=== PATIENT | female | born 1990 | race Caucasian/White ===

== ENCOUNTER 2020-01-23 16:24 | Inpatient (IN) ==
[2020-01-23] MEDS ORDERED: ONDANSETRON INJ 2 MG/ML 2 ML VIAL IV STA (18:03)
--- NOTE | 2020-01-23 18:08 | Emergency Department Note ---
Impression & Plan Weakness, Anemia, Tachycardia, Thrombocytopenia, Acute leukemia ED Provider Note NAME: GLORY ARIAS AGE: 29 SEX: F : 1990 ARRIVES VIA: Walk-In INFORMANT: [Patient] ED PROVIDER(S): [Jack Willard MD] CHIEF COMPLAINT: Dizziness HISTORY OF PRESENT ILLNESS: The patient is a 29-year-old female who has not felt well for 3 days. She is dizzy, short of breath, tired, fatigued, thirsty. She has had some body aches especially on her right arm and right leg. She has felt hot and then cold. She has had some chills and she believes a fever. She fell asleep today at work and they referred her to the ED for an evaluation. The patient admits to nausea but no vomiting. She has had diarrhea though for 3 days. No abdominal pain. No known sick contacts, no known coronavirus exposures. She has never felt this way in the past. The patient was recently on prednisone for a mouth ulcer, she is off this medication now, she has been off it for about a week. REVIEW OF SYSTEMS: See HPI for pertinent positives and negatives. A total of ten systems were reviewed and were otherwise negative. PMHx/PSHx: See Below SOCIAL HISTORY: See Below. PHYSICAL EXAM: GENERAL: Patient is in no acute distress. HEENT: No acute trauma, normocephalic atraumatic, mucous membranes moist, no nasal congestion, no scleral icterus. No nystagmus NECK: No stridor, no adenopathy, no meningismus, trachea is midline. LUNGS: Clear to auscultation bilaterally, no wheeze, no rhonchi, breath sounds equal. HEART: Tachycardic, regular rhythm, no murmurs. ABDOMEN: Soft, nontender, bowel sounds positive, no hernias, no peritonitis. EXTREMITIES: No cyanosis or edema, full range of motion of all the joints without pain or difficulty, no signs for acute trauma. NEUROLOGIC: Oriented x 3, no acute motor or sensory deficits, no focal weakness. No speech slur, no cerebellar deficit, no extremity drift. SKIN: No rash, no jaundice, no diaphoresis. Rectal: Brown stool, heme positive. DIFFERENTIAL DIAGNOSIS: Infection, dehydration, metabolic abnormality, stroke, hypo/hyperglycemia, UTI, electrolyte disturbance, anemia, hypoxia, cardiac sources, intracerebral event, toxicologic, neurologic, as well as other pathologies. EMERGENCY DEPARTMENT COURSE/PROCEDURES: ECG: Indication was tachycardia. The EKG shows a sinus tachycardia with a rate of 109. There is some nonspecific ST change. No ST elevation, no PVCs. The QTc is 428. Continuous Cardiac Monitoring: An order was placed for continuous cardiac monitoring. The monitor shows a rate of 96 with normal sinus rhythm. Critical Care Note: I have personally spent greater than 55 minutes of critical care time in the direct management of this patient. This includes bedside care, interpretation of diagnostic studies, and testing, discussion with consultants, patient, and family members, and other required patient management activities. This 55 minutes is in excess of all separately billable procedures. MEDICAL DECISION MAKING: There is no leukocytosis. The patient's white blood cell count differential though did show blasts. This finding was consistent with acute leukemia. She had a low hemoglobin at 6. Platelet count was low at 55. There was a very mild coagulopathy with an INR of 1.2. No renal failure or significant electrolyte abnormality. No worrisome liver enzyme elevation. The TSH was slightly high however, the T4 was normal. testing was negative. Blood type was A+. Chest film did not show pneumonia or CHF. Rectal exam was performed, the stool was brown but scantly heme positive. The patient received IV saline for hydration. She was ordered for IV Zofran for nausea. I talked to the patient about her CBC values. She did consent to a blood transfusion. The appropriate paperwork was completed and signed. 2 units of blood were ordered, 1 unit was given while here in the ED. Patient was given oral Tylenol and IV Benadryl as potential pretreatment for her blood transfusion. Of note, she did develop a low-grade fever while here in the ED. I spoke to oncology here at [facility], they recommended transfer to a tertiary center. I spoke with [facility] in [place]. They did accept the patient to their facility however, they were no beds available. There should be a bed available for transfer tomorrow. I spoke with our on-call hospitalist. The patient will be brought into our hospital tonight and then transferred to [facility] tomorrow. I did talk to the patient about all her findings. She understands the seriousness of her presentation. The patient seems to be making improvement with the saline, packed red blood cells and other medications. She is resting comfortably. Past Med/Surg History Medical History No pertinent past medical history Social History Preferred Language: Wallisian Communication Ability: Effective Health Assessment And Treatment Teacher Required: No Beliefs That Will Affect Care: None Current Living Situation: Spouse Other Information That Helps Us Care for You: No Feels Safe at Home: Yes Safety Concerns: Feels Safe At This Time Smoking Status: Never smoker Do You Dip or Chew Tobacco: No ; Second Hand Exposure: No ; Tobacco Cessation Education Requested by Patient: No Hx Alcohol Use: No Hx Substance Use: No Allergies Allergies Allergy/AdvReac Type Severity Reaction Status Date / Time No Known Allergies Allergy Verified 01/23/20 18:08 Home Meds Home Medications Medication Instructions Recorded Confirmed ibuprofen 200 - 400 mg PO DAILY PRN 07/01/18 01/23/20 Previous Rx's Medication Instructions Recorded famotidine [Pepcid] 40 mg PO BID #30 tab 01/03/20 Results & Data (ED) Vital Signs Vital Signs - 24 hr 01/23/20 16:25 01/23/20 18:17 01/23/20 18:19 Temperature 37.3 C Temperature Source Oral Pulse Rate - Lying 107 H Pulse Rate - Sitting 117 H Pulse Rate - Standing 119 H Pulse Rate 136 H 108 H Pulse Rate [Apical] Pulse Rate from SpO2 Sensor 111 H Respiratory Rate 18 17 Blood Pressure - Lying 148/75 H Blood Pressure - Sitting 126/72 Blood Pressure- Standing 129/76 Blood Pressure 155/77 H 129/76 Blood Pressure [Right Arm] Blood Pressure Mean 103 103 Blood Pressure Mean [Right Arm] Pulse Oximetry 100 97 Oxygen Delivery Method Room Air Sepsis Recent Fever Within 48 Hours No Sepsis New/Unexplained Change in Mental Status No Sepsis Action Taken by Nursing No Action Required 01/23/20 19:16 01/23/20 20:12 01/23/20 20:47 Temperature 37.9 C H Temperature Source Oral Pulse Rate - Lying Pulse Rate - Sitting Pulse Rate - Standing Pulse Rate 110 H Pulse Rate [Apical] 120 H 108 H Pulse Rate from SpO2 Sensor Respiratory Rate 19 20 21 Blood Pressure - Lying Blood Pressure - Sitting Blood Pressure- Standing Blood Pressure 164/74 H Blood Pressure [Right Arm] 147/76 H 155/74 H Blood Pressure Mean 104 Blood Pressure Mean [Right Arm] 99 101 Pulse Oximetry 96 97 95 Oxygen Delivery Method Room Air Room Air Sepsis Recent Fever Within 48 Hours Sepsis New/Unexplained Change in Mental Status Sepsis Action Taken by Nursing 01/23/20 21:15 01/23/20 21:30 Temperature 38.1 C H 38.3 C H Temperature Source Oral Oral Pulse Rate - Lying Pulse Rate - Sitting Pulse Rate - Standing Pulse Rate 107 H 103 H Pulse Rate [Apical] Pulse Rate from SpO2 Sensor Respiratory Rate 21 18 Blood Pressure - Lying Blood Pressure - Sitting Blood Pressure- Standing Blood Pressure 150/89 H 156/85 H Blood Pressure [Right Arm] Blood Pressure Mean 109 108 Blood Pressure Mean [Right Arm] Pulse Oximetry 94 96 Oxygen Delivery Method Sepsis Recent Fever Within 48 Hours Sepsis New/Unexplained Change in Mental Status Sepsis Action Taken by Long Term Medications Current Medication List: was personally reviewed by me Laboratory Data Attestation: I reviewed the patient's lab results. Result diagrams: 01/23/20 18:27 01/23/20 18:27 Lab Results 01/23/20 01/23/20 01/23/20 Range/Units 18:27 18:27 18:27 WBC 8.27 (4.8-10.8) K/uL RBC 2.15 L (4.2-5.4) M/uL Hgb 6.0 L* (12.0-16.0) g/dL Hct 17.8 L* (37-47) % MCV 82.8 (80-100) fL MCH 27.9 (25-34) pg MCHC 33.7 (32-36) g/dL RDW Std Deviation 52.5 H (36.4-46.3) fL RDW Coeff of Brock 19.3 H (11.5-14.5) % Plt Count 55 L (130-400) K/uL MPV 8.6 (7.4-10.4) fL Absolute Nucleated RBC 0.06 H (0-0) K/uL Nucleated RBC % (auto) 0.7 % Lymphocytes % (Manual) 46.5 % Monocytes % (Manual) 0.9 % Basophils % (Manual) 0.9 % Metamyelocytes % (Man) 0.9 % Blast Cells % (Manual) 33.3 % Neutrophils # (Manual) 1.45 (1.4-6.5) K/uL Total Absolute Neuts 1.45 (1.4-6.5) K/uL Lymphocytes # (Manual) 3.85 H (1.2-3.4) K/uL Total Abs Lymphocytes 3.85 H (1.2-3.4) K/uL Monocytes # (Manual) 0.07 L (0.11-0.59) K/uL Basophils # (Manual) 0.07 (0-0.2) K/uL Metamyelocytes # (Man) 0.07 H (0-0) K/uL Blast Cells # (Man) 2.75 H (0-0) K/uL Blood Smear Review Platelet Estimate Decreased L (Normal) RBC Morphology Unremarkable PT (9.0-12.0) Seconds INR (0.9-1.1) APTT (21.0-31.0) Seconds PTT Ratio Sodium 137 (136-145) mmol/L Potassium 4.0 (3.5-5.1) mmol/L Chloride 103 (98-107) mmol/L Carbon Dioxide 27 (21-32) mmol/L Anion Gap 7.0 (3-11) BUN 9 (7-18) mg/dl Creatinine 0.89 (0.6-1.2) mg/dl Est Cr Clr Drug Dosing 122.6 ml/min Est GFR ( Amer) 102.2 Est GFR (Non-Af Amer) 88.2 BUN/Creatinine Ratio 10.2 (10-20) Glucose 109 H (70-99) mg/dl Calcium 9.7 (8.5-10.1) mg/dl Magnesium 1.9 (1.8-2.4) mg/dl Total Bilirubin 1.2 H (0.2-1) mg/dl AST 24 (15-37) U/L ALT 19 (12-78) U/L Alkaline Phosphatase 54 (45-117) U/L Troponin I < 0.015 (0-0.045) ng/ml Total Protein 8.2 (6.4-8.2) gm/dl Albumin 3.4 (3.4-5.0) gm/dl Globulin 4.8 H (2.5-4.0) gm/dl Albumin/Globulin Ratio 0.7 L (0.9-2) TSH 7.400 H (0.300-4.500) uIu/ml Free T4 1.12 (0.8-1.6) ng/dl HCG, Qual Negative (Negative) Blood Type Blood Type Recheck Antibody Screen Crossmatch 01/23/20 01/23/20 01/23/20 Range/Units 19:07 19:22 19:45 WBC (4.8-10.8) K/uL RBC (4.2-5.4) M/uL Hgb (12.0-16.0) g/dL Hct (37-47) % MCV (80-100) fL MCH (25-34) pg MCHC (32-36) g/dL RDW Std Deviation (36.4-46.3) fL RDW Coeff of Brock (11.5-14.5) % Plt Count (130-400) K/uL MPV (7.4-10.4) fL Absolute Nucleated RBC (0-0) K/uL Nucleated RBC % (auto) % Lymphocytes % (Manual) % Monocytes % (Manual) % Basophils % (Manual) % Metamyelocytes % (Man) % Blast Cells % (Manual) % Neutrophils # (Manual) (1.4-6.5) K/uL Total Absolute Neuts (1.4-6.5) K/uL Lymphocytes # (Manual) (1.2-3.4) K/uL Total Abs Lymphocytes (1.2-3.4) K/uL Monocytes # (Manual) (0.11-0.59) K/uL Basophils # (Manual) (0-0.2) K/uL Metamyelocytes # (Man) (0-0) K/uL Blast Cells # (Man) (0-0) K/uL Blood Smear Review Platelet Estimate (Normal) RBC Morphology PT 13.0 H (9.0-12.0) Seconds INR 1.2 H (0.9-1.1) APTT 23.5 (21.0-31.0) Seconds PTT Ratio 0.8 Sodium (136-145) mmol/L Potassium (3.5-5.1) mmol/L Chloride (98-107) mmol/L Carbon Dioxide (21-32) mmol/L Anion Gap (3-11) BUN (7-18) mg/dl Creatinine (0.6-1.2) mg/dl Est Cr Clr Drug Dosing ml/min Est GFR ( Amer) Est GFR (Non-Af Amer) BUN/Creatinine Ratio (10-20) Glucose (70-99) mg/dl Calcium (8.5-10.1) mg/dl Magnesium (1.8-2.4) mg/dl Total Bilirubin (0.2-1) mg/dl AST (15-37) U/L ALT (12-78) U/L Alkaline Phosphatase (45-117) U/L Troponin I (0-0.045) ng/ml Total Protein (6.4-8.2) gm/dl Albumin (3.4-5.0) gm/dl Globulin (2.5-4.0) gm/dl Albumin/Globulin Ratio (0.9-2) TSH (0.300-4.500) uIu/ml Free T4 (0.8-1.6) ng/dl HCG, Qual (Negative) Blood Type A Positive Blood Type Recheck A Positive Antibody Screen NEGATIVE Crossmatch See Detail Administered Medications Piperacillin Sod/Tazobactam Sod (Zosyn) 4.5 gm in 120 mls @ 28.75 mls/hr IV ONE STA; Protocol Stop: 01/24/20 01:50 Last Admin: 01/23/20 23:45 Dose: 28.8 mls/hr Documented by: [id number] Discontinued Medications Acetaminophen (Tylenol) 1,000 mg PO NOW STA Stop: 01/23/20 20:54 Last Admin: 01/23/20 21:04 Dose: 1,000 mg Documented by: [id number] Diphenhydramine HCl (Benadryl) 25 mg IV NOW STA Stop: 01/23/20 20:54 Last Admin: 01/23/20 21:04 Dose: 25 mg Documented by: [id number] Sodium Chloride (Nss 1000ml) 1,000 mls @ 999 mls/hr IV .Q1H1M ELANA Stop: 01/23/20 19:15 Last Infusion: 01/23/20 19:40 Dose: 0 mls/hr Documented by: [id number] Admin: 01/23/20 18:33 Dose: 999 mls/hr Documented by: [id number] Vancomycin HCl 2,750 mg/ (Sodium Chloride) 555 mls @ 200 mls/hr IV NOW STA Stop: 01/24/20 00:25 Last Infusion: 01/24/20 00:50 Dose: 200 mls/hr Documented by: [id number] Admin: 01/23/20 22:03 Dose: 200 mls/hr Documented by: [id number] Ondansetron HCl (Zofran) 4 mg IV NOW STA Stop: 01/23/20 18:04 Last Admin: 01/23/20 18:33 Dose: 4 mg Documented by: [id number] Imaging Data Radiologist's Impression: XR chest 1V portable HISTORY: 29 years-old Female weakness acute weakness with shortness of breath COMPARISON: Lumbar spine radiographs 07/01/2018 TECHNIQUE: Portable AP view of the chest FINDINGS: Cardiomediastinal and hilar silhouettes are within normal limits. There is no pneumothorax, pleural effusion, airspace consolidation or overt pulmonary edema. Bones of the chest appear grossly intact. IMPRESSION: No acute process. Blood Pressure Blood Pressure Findings: Elevated blood pressure Blood Pressure Disposition: further management by hospitalist Discharge Plan Visit Data *Final* Discharge Date/Time: 01/23/20 22:12 Chief Complaint: Dizziness Stated Complaint: DIZZY - FATIGUE - SOB - CONFUSION ED Provider: Jack Willard Discharge Problem: Weakness, Anemia, Tachycardia, Thrombocytopenia, Acute leukemia Patient Disposition: Admitted As Inpatient Discharge Instructions Interventions: ED Discharge Assessment Last Done: 01/23/20 22:12
[2020-01-23] MEDS ORDERED: SODIUM CHLORIDE 0.9% 1000ML 1,000 ML IV SCH (18:15)
--- NOTE | 2020-01-23 18:50 | XRay Report ---
XR chest 1V portable HISTORY: 29 years-old Female weakness acute weakness with shortness of breath COMPARISON: Lumbar spine radiographs 07/01/2018 TECHNIQUE: Portable AP view of the chest FINDINGS: Cardiomediastinal and hilar silhouettes are within normal limits. There is no pneumothorax, pleural e ffusion, airspace consolidation or overt pulmonary edema. Bones of the chest appear grossly intact. IMPRESSION: No acute process. ACT 112: Negative or not required by law. The above report was generated using voice recognition software. It may contain grammatical, syntax o r spelling errors. Electronically signed by: Ricardo Menezes M.D. 01/23/2020 6:48 PM
[2020-01-23 18:51] LABS: Pregnancy Test, Serum Negative (Negative)
[2020-01-23 18:53] LABS: Alanine Aminotransferase 19 U/L (12-78); Albumin Level 3.4 gm/dl (3.4-5.0); Aspartate Aminotransferase 24 U/L (15-37); BUN Creatinine Ratio 10.2 (10-20); Blood Urea Nitrogen 9 mg/dl (7-18); Calcium 9.7 mg/dl (8.5-10.1); Carbon Dioxide 27 mmol/L (21-32); Chloride 103 mmol/L (98-107); Creatinine Clr Calc Pharmacy 122.6 ml/min; Est GFR (African American) 102.2; Est GFR (Non-African American) 88.2; Glucose 109 mg/dl (70-99); Magnesium 1.9 mg/dl (1.8-2.4); Sodium 137 mmol/L (136-145)
[2020-01-23 18:56] LABS: Hematocrit (blood only) 17.8 % (37-47); Mean Corpuscular Hemoglobin 27.9 pg (25-34); Mean Corpuscular Hgb Conc 33.7 g/dL (32-36); Mean Corpuscular Volume 82.8 fL (80-100); Mean Platelet Volume 8.6 fL (7.4-10.4); Nucleated RBC # (auto) 0.06 K/uL (0-0); Nucleated RBC % (auto) 0.7 %; Platelet Count 55 K/uL (130-400); RDW Coefficient of Variation 19.3 % (11.5-14.5); RDW Standard Deviation 52.5 fL (36.4-46.3); Red Blood Count 2.15 M/uL (4.2-5.4); White Blood Count 8.27 K/uL (4.8-10.8)
[2020-01-23] MEDS ORDERED: SODIUM CHLORIDE 0.9% 250 ML IV PRN ×2 (18:56→19:18)
[2020-01-23 19:03] LABS: Albumin Globulin Ratio 0.7 (0.9-2); Alkaline Phosphatase 54 U/L (45-117); Bilirubin,Total 1.2 mg/dl (0.2-1); Globulin 4.8 gm/dl (2.5-4.0); Total Protein 8.2 gm/dl (6.4-8.2); Troponin I < 0.015 ng/ml (0-0.045)
[2020-01-23 19:15] LABS: T4 Free Thyroxine 1.12 ng/dl (0.8-1.6)
[2020-01-23 19:31] LABS: Platelet Estimate Decreased (Normal); RBC Morphology Unremarkable
[2020-01-23 19:38] LABS: ALC (manual) 3.85 K/uL (1.2-3.4); ANC (manual) 1.45 K/uL (1.4-6.5); Basophils # (manual) 0.07 K/uL (0-0.2); Basophils % (manual) 0.9 %; Blast # (manual) 2.75 K/uL (0-0); Blast Cells % (manual) 33.3 %; Lymphocytes # (manual) 3.85 K/uL (1.2-3.4); Lymphocytes % (manual) 46.5 %; Metamyelocytes # (manual) 0.07 K/uL (0-0); Metamyelocytes % (manual) 0.9 %; Monocytes # (manual) 0.07 K/uL (0.11-0.59); Monocytes % (manual) 0.9 %; Neutrophils # (manual) 1.45 K/uL (1.4-6.5)
[2020-01-23 20:06] LABS: INR 1.2 (0.9-1.1); Partial Thromboplastin Ratio 0.8; Partial Thromboplastin Time 23.5 Seconds (21.0-31.0)
[2020-01-23] MEDS ORDERED: ACETAMINOPHEN 500 MG TAB PO STA (20:53)
[2020-01-23] MEDS ORDERED: DiphenhydrAMINE HCL 50 MG/ML VIAL IV STA (20:53)
[2020-01-23] MEDS ORDERED: VANCOMYCIN CONSULT ACTIVE PRN (21:23)
[2020-01-23] MEDS ORDERED: PIPERACILL/TAZOBAC CONSULT ACTIVE PRN (21:28)
[2020-01-23] MEDS ORDERED: VANCOMYCIN HCL 2,750 MG in SODIUM CHLORIDE 0.9% 500 ML IV STA (21:39)
[2020-01-23] MEDS ORDERED: PIPERACILLIN/TAZOBACTAM 4.5 GM/120 ML BAG IV STA (21:40)
[2020-01-23] MEDS ORDERED: ONDANSETRON INJ 2 MG/ML 2 ML VIAL IV PRN (22:53)
[2020-01-23] MEDS ORDERED: ACETAMINOPHEN 325 MG TAB PO PRN (22:53)
[2020-01-23] MEDS ORDERED: POLYETHYLENE (MIRALAX) 17 GM PACK PO PRN (22:53)
--- NOTE | 2020-01-23 23:05 | History & Physical Report ---
Date of Service January 23, 2020 Assessment & Plan (1) Bone marrow depression: Kirstin Arias is a previously healthy 29 year old woman who presents with a week history of progressive fatigue, weakness, dyspnea on exertion who presents with increased lymphocytic blasts, anemia and thrombocytopenia Bone Marrow Suppression with Increased Blasts White count 8.27, hemoglobin of 6, Platelet count 55, increased lymphocytes increased metamyelocytes 33% blast cells 2.75 k/microliter Peripheral smear without Lena rods or signs of AML Will need cytometric analysis and bone marrow biopsy for diagnosis Plan is for transfer to [facility], but they are not able to take her tonight, we will watch her here overnight and plan on transfer in AM when they are anticipated to have a bed open up. Oncology consulted and on board with plan Anemia Hemoglobin 6 on presentation transfused two units in ED will recheck Hgb tonight and replete as necessary Likely source of her fatigue, dyspnea with exertion, and syncopal episode Fever Patient with borderline low neutrophils but in setting of possible acute leukemia existing neutrophils may be ineffective Very possible this fever and symptoms are just secondary to acute leukemic process but we will treat for infectious causes as precaution. Will cover with vancomycin and zosyn No clear source blood cultures drawn x2 Urine pending No sign of pna Vitals WNL, ECG negative, cxr negative Will admit to PCU for close monitoring, given her likely compromised immune system there is potential for acute worsening Thrombocytopenia Patient with decreased platelets possibly secondary to malignant process Patient with spontaneous bruising over last couple of weeks INR 1.2 aPTT normal No signs of acute bleeding but will continue to monitor No indication for platelet transfusion at this time. DVT PPx: SCD's F/E/N: Regular diet Dispo: PCU on broad spectrum antibiotics awaiting transfer to tertiary care center tomorrow am Full Code (2) Anemia: (3) Neutropenia: (4) Neutropenic fever: History of Present Illness Chief Complaint: Fatigue, passing out, dizziness. Primary Care Provider: PT DECLINED Kirstin Arias is a 29 year old previously healthy woman with a several day period of worsening fatigue, weakness and an episode of "passing out". 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 This continued into Tuesday and she had one episode where she became so weak she passed out. Does not sound like she fully lost consciousness but became lightheaded. She has continued to have these issues at work and she has had to stop walking as much and adjust her work duties. She has had some episodes of hot and cold flashes that she calls chills and occasionally gets sweats. She attributed the fatigue, shortness of breath, and temperature swings and sweats to having to wear a mask but now it is present even when not at work. She has also noticed that she has had some bruising spring up spontaneously on her body in areas that she doesn't recall bumping. She denies any rectal bleeding, no dark stools, no increased menstruation. She has had a decreased appetite and some diarrhea, no nausea or vomiting. She has no major personal past medical history, no family history of any malignancies that she is aware of. 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 Beliefs That Will Affect Care: None Current Living Situation: Spouse Feels Safe at Home: Yes Smoking Status: Never smoker Second Hand Exposure: No ; Hx Alcohol Use: No Hx Substance Use: No Review of Systems Constitutional: + fever (subjective), + chills, + sweats, + body aches, + fatigue, + malaise, + weakness, + anorexia and + weight loss Eyes: no problem reported Ear, Nose, Mouth, Throat: no neck lump and no problem reported Respiratory: no cough, no dyspnea and no wheezing Cardiovascular: + dyspnea on exertion, + palpitations and + lightheadedness; no chest pain Gastrointestinal: no abdominal pain, no nausea, no vomiting, no constipation and no diarrhea/loose stools Genitourinary: no dysuria, no urinary frequency, no dysmenorrhea and no abnormal vaginal bleeding Neurologic: no falls, no localized weakness, no numbness and no tremor(s) Hematologic / Lymphatic: + easy bruising and + night sweats; no lymphadenopathy Physical Exam Physical Exam: Constitutional: Well appearing 29 year old woman appearing stated age in no apparent distress. Conversing comfortably in bed. Eyes: Anicteric sclerae, EOMMI bilaterally, PERRLA Neck: No lymph nodes palpated Respiratory: No increased respiratory effort, lung sounds vesicular in all lung solorzano. Cardiovascular: Heart sounds dual regular rate, regular rhythm, no murmurs rubs skips or gallops. no peripheral edema, GI: Abdomen soft, mild tenderness to spleen, splenomegaly appreciated though difficult to assess borders given patient's body habitus Neurologic: No focal abnormalities appreciated Psychiatric: Anxious affect, no other issues. Lymphatic: Lymphatic: no cervical or axillary lymphadenopathy Results & Data Results & Data ([facility]) Vital Signs (Past 12 Hours) Vital Signs Temp Pulse Pulse Resp BP BP Pulse Ox 01/23/20 22:00 37.7 C H 103 H 18 137/60 95 01/23/20 21:30 38.3 C H 103 H 18 156/85 H 96 01/23/20 21:15 38.1 C H 107 H 21 150/89 H 94 01/23/20 20:47 37.9 C H 110 H 21 164/74 H 95 01/23/20 20:12 108 H 20 155/74 H 97 01/23/20 19:16 120 H 19 147/76 H 96 01/23/20 18:19 108 H 17 129/76 97 01/23/20 16:25 37.3 C 136 H 18 155/77 H 100 Code Status & VTE Plan VTE Prophylaxis Plan VTE Prophylaxis will be ordered: Yes Supervising Physician Co-Signing Physician Notes Attending addendum: I have physically seen this patient, have supervised the medical residents activities, and agree with the H&P unless as otherwise noted. Assessment and Plan: Acute leukemia/anemia and thrombocytopenia/febrile illness- Admit to monitored bed. Give 2 units PRBCs this evening, and repeat labs in the a.m. No signs of bleeding. Pantoprazole 40 mg IV daily Vancomycin IV and Zosyn IV. Follow urine and blood cultures. Tertiary care center will return with bed availability to be transferred in the a.m. tomorrow. Fever may just be related to the leukemia, or may be due to secondary underlying infection. Patient to be seen by Dr. Holliday, hematology oncology while here. If patient decompensates overnight, she will be transferred through emergency department at tertiary care facility. Remaining orders and notations as noted. Resident Activity Tracking Resident Involvement: Resident Care Provided Care Provided: Adult Hospital Medicine
[2020-01-24 02:58] LABS: Appearance Urine Cloudy (Clear); Bacteria Urine Automated Negative (Negative); Bilirubin Urine Negative (Negative); Blood Urine 3+ (Negative); Color Urine Yellow; Epithelial Cell Urine Auto >30 /lpf (0-5); Glucose Urine UA Negative (Negative); Ketones Urine Negative (Negative); Leukocyte Esterase Urine Negative (Negative); Nitrite Urine Negative (Negative); Protein Urine Negative (Negative); RBC Urine Automated >30 /hpf (0-4); Specific Gravity Urine 1.023 (1.000-1.030); Urobilinogen Urine Negative (Negative); pH Urine 5.5 (4.5-7.5)
[2020-01-24] MEDS: PIPERACILLIN/TAZOBACTAM 4.5 GM in DEXTROSE 5% 100 ML IV SCH ×2 (03:30→12:37)
[2020-01-24 03:49] LABS: Hematocrit (blood only) 17.8 % (37-47); Hemoglobin 6.1 g/dL (12.0-16.0); Mean Corpuscular Hemoglobin 28.8 pg (25-34); Mean Corpuscular Hgb Conc 34.3 g/dL (32-36); Mean Platelet Volume 7.9 fL (7.4-10.4); Nucleated RBC # (auto) 0.03 K/uL (0-0); Nucleated RBC % (auto) 0.5 %; Platelet Count 48 K/uL (130-400); RDW Coefficient of Variation 18.5 % (11.5-14.5); RDW Standard Deviation 53.2 fL (36.4-46.3); Red Blood Count 2.12 M/uL (4.2-5.4); White Blood Count 6.76 K/uL (4.8-10.8)
[2020-01-24 04:08] LABS: ALC (manual) 3.19 K/uL (1.2-3.4); ANC (manual) 1.47 K/uL (1.4-6.5); Blast Cells % (manual) 31.1 %; Lymphocytes # (manual) 3.19 K/uL (1.2-3.4); Lymphocytes % (manual) 47.2 %; Neutrophils # (manual) 1.47 K/uL (1.4-6.5); Neutrophils % (manual) 21.7 %; RBC Morphology Unremarkable
[2020-01-24] MEDS ORDERED: SODIUM CHLORIDE 0.9% 250 ML IV PRN (04:20)
[2020-01-24 04:30] LABS: Albumin Level 2.7 gm/dl (3.4-5.0); BUN Creatinine Ratio 9.5 (10-20); Calcium 8.7 mg/dl (8.5-10.1); Creatinine Clr Calc Pharmacy 128.7 ml/min; Est GFR (African American) 105.1; Est GFR (Non-African American) 90.7; Potassium 3.6 mmol/L (3.5-5.1)
[2020-01-24 04:34] LABS: Albumin Globulin Ratio 0.7 (0.9-2); Bilirubin,Total 1.2 mg/dl (0.2-1); Globulin 4.1 gm/dl (2.5-4.0); Total Protein 6.8 gm/dl (6.4-8.2)
[2020-01-24] MEDS ORDERED: VANCOMYCIN HCL 1,250 MG in SODIUM CHLORIDE 0.9% 250 ML IV SCH (08:00)
[2020-01-24] MEDS ORDERED: FAMOTIDINE 40 MG TABLET PO SCH (09:00)
--- NOTE | 2020-01-24 09:13 | Consultation Report ---
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 HISTORY OF PRESENT ILLNESS: Kirstin Arias is a pleasant 29-year-old previously healthy woman with several days onset asthenia, dizziness, and lightheadedness. She actually presented with low grade fever in the Emergency Room as well. She was shopping at [employer] over the weekend and noticed her exercise tolerance declined significantly. The symptoms continued into Tuesday and had a near syncopal episode that day. She noticed in a general sense during work she had to take several breaks from her work duties. She finally decided to come to the Emergency Room and underwent a battery of laboratory tests including peripheral blood counts initially revealing WBC count of 8270, hemoglobin of 6 and platelet count of 55,000. Over 20% blasts were seen peripherally. I examined the smear this morning indeed any blasts are present. She is receiving 2 units of packed RBCs as we speak. Coags were checked and found to be normal, thus ruling out underlying DIC. She was started on broad spectrum antibiotics and pancultured. She has no significant medical history otherwise. She will be transferred to [facility] to receive induction chemotherapy when bed is available. PAST MEDICAL AND SURGICAL HISTORY: Negative. MEDICATIONS: Prior to admission include Pepcid 40 mg p.o. b.i.d., ibuprofen 200-400 mg p.o. daily p.r.n. ALLERGIES: No known drug allergies. SOCIAL HISTORY: The patient is , no children. She is a nonsmoker, nondrinker, non-illicit drug user. FAMILY HISTORY: The patient is adopted. REVIEW OF SYSTEMS: CONSTITUTIONAL: Positive for fevers, diaphoresis, body aches, fatigue, malaise, generalized weakness, anorexia and weight loss. SKIN: Scattered ecchymoses, but no petechial rash, no history of dermatoses. HEENT: Again, she experienced some lightheadedness and dizziness. No visual deficit. No hearing deficits. No sinus symptoms, sore throat or dysphagia presently. LYMPH: No history of lymphoproliferative disease. CARDIAC: No history of coronary artery disease. Denies angina or palpitations. PULMONARY: Negative for COPD. She is not short of breath, dyspneic or orthopneic at present. GASTROINTESTINAL: Negative for abdominal pain, nausea, vomiting, diarrhea or constipation, hematochezia or melena stools. GENITOURINARY: No hematuria, dysuria, urinary incontinence. PSYCHIATRIC: No history of anxiety, depression or psychoses. MUSCULOSKELETAL: No focal muscle weakness. No arthralgias. NEUROLOGIC: Negative for seizure, stroke, or migraine headache. HEMATOLOGIC: As above. PHYSICAL EXAMINATION: GENERAL: Moderately obese 29-year-old female, awake, alert and appropriate, in no acute distress. VITAL SIGNS: Temperature 37.2, pulse 91, blood pressure 177/75. SKIN: Warm, dry, noncyanotic without petechia or rash. LUNGS: Couple of scattered ecchymosis are noted. HEENT: Head is atraumatic, normocephalic. Eyes: PERRLA, EOMI. Sclerae are nonicteric. Nares are patent without rhinorrhea or discharge. Throat is clear. Tongue is midline. No buccal lesions or ulcerations. No evidence of thrush. NECK: Supple without JVD or thyromegaly. LYMPHATICS: No cervical or supraclavicular palpable nodes. HEART: Regular rate and rhythm. No clicks, rubs, murmurs or gallops. PULMONARY: Clear to auscultation bilaterally. No rales, or rhonchi appreciated. ABDOMEN: Soft, nontender, nondistended. No rigidity or guarding. Bowel sounds are active. EXTREMITIES: Musculoskeletal strength and pulses are equal in all 4 quadrants. No clubbing, cyanosis or edema. NEUROLOGICALLY: She is awake, alert and oriented x3. Cranial nerves are grossly intact. LABORATORY DATA: WBC count 6760, hemoglobin 6.1, platelet count 48,000. This is a 31% peripheral blasts reported. PT mildly elevated at 13, INR 1.2, PTT 23.5 seconds. Sodium 139, potassium 3.6, chloride 107, carbon dioxide 25, creatinine 0.87, BUN 8, albumin 2.7. TSH 7.4. RADIOGRAPHIC DATA: Chest x-ray done on admission, no acute pneumonic process. IMPRESSION: 1. Acute leukemia. 2. Anemia/thrombocytopenia attributable to acute leukemia. 3. Elevated TSH/hypothyroidism. 4. Fever of unclear etiology. PLAN: I was contacted by the Emergency Room physician that Kirstin's presentation here yesterday. The physician was alarmed when over 30% blasts were reported. Advised to arrange for transfer, which has been done. Awaiting a bed at the [facility] where she will have the workup completed including flow cytometry, cytogenetics, bone marrow biopsy and aspiration. She will then require induction chemotherapy dependent on the leukemia identified. I advised Kirstin she would be hospitalized for several days and needs to consider short term disability in regard to her current employment. Once she completes induction generally bone marrow biopsy and aspiration is performed on day 14 to ensure eradication of the abnormal clone. She would then require consolidative chemotherapy thereafter. I will be more than happy to reengage with Kirstin once she completes induction and consolidation for supportive care moving forward. I anticipate her transfer later on today and will officially sign off. If you have any questions or concerns, I can be contacted by phone. JOY
[2020-01-24] MEDS ORDERED: allopurinoL 100 MG TAB PO SCH (11:00)
--- NOTE | 2020-01-24 11:34 | Pharmacy Report ---
Pharmacy Abx Dose Short Note - Date of Service January 24, 2020 - Assessment & Plan Assessment * 29 year old F presented to ED with c/o low grade fever, progressive fatigue and SOB. New dx of acute leukemia. Pharmacy has been consulted to dose vancomycin + Zosyn for 48 hr empiric coverage - unknown source of infection * BLCXs drawn * Negative MRSA nasal swab * CXR read as "no acute process" * UA no suggestive of UTI * Anaplasmosis DNA pending Plan Vancomycin * Received 2750mg (~24mg/kg) load in ED last evening * Will begin maint dose of 1250mg (~10mg/kg) IV Q 8 hrs * Goal trough level for empiric coverage unknown source of infection : 15 to 20 mcg/mL, however will aim for ~15 * Will check trough prior to 4th maint dose if therapy to continue * P'kinetic estimates: Vd 0.55L/kg (due to BMI > 40), half-life 6-8 hours Zosyn * eCrCl > 20 * BMI > 35 * continue Zosyn 4.5gm ext-infusion Q 8 hrs Pharmacy will continue to follow and will adjust dose/frequency as necessary. Thank you.
[2020-01-24 12:20] LABS: Mean Corpuscular Hgb Conc 33.9 g/dL (32-36); Nucleated RBC # (auto) 0.05 K/uL (0-0); Nucleated RBC % (auto) 0.7 %
[2020-01-24 12:39] LABS: Albumin Level 2.9 gm/dl (3.4-5.0); Calcium 8.9 mg/dl (8.5-10.1); Creatinine Clr Calc Pharmacy 151.3 ml/min; Est GFR (African American) 127.8; Est GFR (Non-African American) 110.3; Potassium 3.7 mmol/L (3.5-5.1)
[2020-01-24 12:43] LABS: Hematocrit (blood only) 22.7 % (37-47); Hemoglobin 7.7 g/dL (12.0-16.0); Mean Corpuscular Hemoglobin 28.8 pg (25-34); Mean Platelet Volume 8.6 fL (7.4-10.4); Platelet Count 48 K/uL (130-400); RDW Coefficient of Variation 17.7 % (11.5-14.5); RDW Standard Deviation 53.3 fL (36.4-46.3); Red Blood Count 2.67 M/uL (4.2-5.4); White Blood Count 6.75 K/uL (4.8-10.8)
[2020-01-24 12:47] LABS: Albumin Globulin Ratio 0.7 (0.9-2); Bilirubin,Total 2.1 mg/dl (0.2-1); Globulin 4.2 gm/dl (2.5-4.0); Phosphorus 4.6 mg/dl (2.5-4.9); Total Protein 7.1 gm/dl (6.4-8.2)
[2020-01-24 12:55] LABS: ALC (manual) 3.12 K/uL (1.2-3.4); ANC (manual) 1.64 K/uL (1.4-6.5); Blast # (manual) 1.64 K/uL (0-0); Blast Cells % (manual) 24.3 %; Eosinophils # (manual) 0.06 K/uL (0-0.5); Eosinophils % (manual) 0.9 %; Lymphocytes # (manual) 3.12 K/uL (1.2-3.4); Lymphocytes % (manual) 46.2 %; Metamyelocytes # (manual) 0.11 K/uL (0-0); Metamyelocytes % (manual) 1.7 %; Monocytes # (manual) 0.11 K/uL (0.11-0.59); Monocytes % (manual) 1.7 %; Myelocytes # (manual) 0.06 K/uL (0-0); Myelocytes % (manual) 0.9 %; Neutrophils # (manual) 1.64 K/uL (1.4-6.5); Neutrophils % (manual) 24.3 %
--- NOTE | 2020-01-24 13:06 | Discharge Summary ---
Date of Service January 24, 2020 Admission HPI Per Admitting Provider Kirstin Arias is a 29 year old previously healthy woman with a several day period of worsening fatigue, weakness and an episode of "passing out". 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 This continued into Tuesday and she had one episode where she became so weak she passed out. Does not sound like she fully lost consciousness but became lightheaded. She has continued to have these issues at work and she has had to stop walking as much and adjust her work duties. She has had some episodes of hot and cold flashes that she calls chills and occasionally gets sweats. She attributed the fatigue, shortness of breath, and temperature swings and sweats to having to wear a mask but now it is present even when not at work. She has also noticed that she has had some bruising spring up spontaneously on her body in areas that she doesn't recall bumping. She denies any rectal bleeding, no dark stools, no increased menstruation. She has had a decreased appetite and some diarrhea, no nausea or vomiting. She has no major personal past medical history, no family history of any malignancies that she is aware of. Principal Diagnosis Leukemia, blast crisis Discharge Exam Constitutional well developed, + ill appearing and + overweight Eyes PERRL, conjunctivae normal, anicteric sclerae ENMT external ear and nose normal, oropharynx normal Neck trachea midline, no thyromegaly Respiratory normal respiratory effort, lungs clear to auscultation Cardiovascular RRR, no murmur, no edema Gastrointestinal (Abdomen) normal bowel sounds, soft, nontender, no hepatosplenomegaly Musculoskeletal no cyanosis or clubbing, extremities motor strength 5/5 Skin no rashes, warm and dry Neurologic patellar DTR's 2+ bilat, sensation intact and PERRL, EOMI, accommodation nl, no face palsy, no dysarthria Psychiatric A+Ox3, euthymic affect Lymphatic no cervical or axillary lymphadenopathy Discharge Data Allergies Allergy/AdvReac Type Severity Reaction Status Date / Time No Known Allergies Allergy Verified 01/23/20 18:08 Consultations 01/23/20 20:23 ED Decision to Admit Stat 01/23/20 22:53 Consult Hematology Routine 01/24/20 03:59 Consult Case Management - Discharge Planning Routine 01/24/20 12:55 Burn CD for patient Stat Hospital Course (1) Bone marrow depression: Kirstin Arias is a previously healthy 29 year old woman who presents with a week history of progressive fatigue, weakness, dyspnea on exertion who presents with increased lymphocytic blasts, anemia and thrombocytopenia Bone Marrow Suppression with Increased Blasts White count 8.27, hemoglobin of 6, Platelet count 55, increased lymphocytes increased metamyelocytes 33% blast cells 2.75 k/microliter at time of admission Peripheral smear without Lena rods or signs of AML Will need cytometric analysis and bone marrow biopsy for diagnosis Plan is for transfer to [facility] most recent CBC shows WBC 6.75, 24% PMN, 24% blasts started on Allopurinol, Acyclovir TID uric acid 7.0, phos, calcium, potassium all normal Anemia Hemoglobin 6 on presentation transfused three units total, Hb up to 7.7 prior to transfer Likely source of her fatigue, dyspnea with exertion, and syncopal episode Fever Patient with borderline low neutrophils but in setting of possible acute leukemia existing neutrophils may be ineffective Very possible this fever and symptoms are just secondary to acute leukemic process but we will treat for infectious causes as precaution. given vancomycin and zosyn here, defer to admitting group at [place] for antibiotic coverage No clear source blood cultures drawn x2 Urine pending No sign of pna Vitals WNL, ECG negative, cxr negative Thrombocytopenia Patient with decreased platelets possibly secondary to malignant process Patient with spontaneous bruising over last couple of weeks INR 1.2 aPTT normal No signs of acute bleeding but will continue to monitor platelets 48 on transfer DVT PPx: SCD's F/E/N: Regular diet Dispo: PCU on broad spectrum antibiotics awaiting transfer to tertiary care center tomorrow am Full Code (2) Anemia: (3) Neutropenia: (4) Neutropenic fever: Total Time Total Time Spent Total Time Spent (In Minutes): 31 minutes Total Time Includes: Examination of the Patient, Discharge Planning, Medication Reconciliation and Communication With Other Providers Discharge Plan Discharge Items Patient Disposition: Transfer Acute Care Hospital Reason For Visit: ANEMIA,NEUTROPENIA Discharge Diagnosis: Leukemia with blast crisis Anemia Thrombocytopenia Condition on Discharge: Fair Goals: transfer to [place] Activity: Resume your previous activity Non-emergency contact: Oncologist Call non-emergency contact if: you have any medication questions Follow-up/Referrals: PT,DECLINED [Primary Care Provider] - Diet: Regular Addtl Attending Provider Instructions: Medications: currently in the hospital Treated with Zosyn and Vanco at time of admission for neutropenic fevers, defer choice of antibiotics going forward to admitting group Started on Allopurinol 100mg daily, Acyclovir 400mg TID Transfused total of three units of PRBC, Hb up to 7.7 when last checked at 1200 labs at 1200: WBC 6.75 with 24% PMN and 24.3% blasts platelets 48 uric acid 7.0, phos 4.6, calcium 8.9, K 3.7 and Cr is 0.74 Pending Studies at Discharge: No Stand-Alone Forms: My [facility] Skilled Items Patient informed of condition?: Yes DNR: No Discharge Level of Care: Other Communicable Disease: No Discharge Prognosis: Stable Lines: Peripheral IV Urinary Catheter: No Medications and DC Order Prescriptions: Continued ibuprofen 200 mg Tablet 200 - 400 mg PO DAILY PRN (Reason: Pain) RF: 0 famotidine [Pepcid] 40 mg tablet 40 mg PO BID Qty: 30 RF: 0 Discharge Orders: Discharge Order (Routine); Ordered 01/24/20 Ordered By: Saulo Davison Admission Data Admit Date/Time: 01/23/20 21:46 Attending Provider: Saulo Davison Admit Provider: Alberto Carrillo Primary Care Provider: YESSY,RAVEN Other Providers: Patrick Tubbs ; Cory Gonzalez V. Coding Level of Care Code D/C Day Management >30 mins Diagnoses Bone marrow depression D75.89 Anemia D64.9 Neutropenia D70.9 Neutropenic fever D70.9; R50.81
[2020-01-24] MEDS ORDERED: ACYCLOVIR 400 MG TAB PO SCH (14:00)
--- NOTE | 2020-01-24 20:19 | Billing Data ---
Date of Service January 24, 2020 Coding Level of Care Code 91033 OBS Care - Level 3
--- NOTE | 2020-01-24 22:12 | Electrocardiogram Report ---
Test Reason : Blood Pressure : / mmHG Vent. Rate : 109 BPM Atrial Rate : 109 BPM P-R Int : 144 ms QRS Dur : 076 ms QT Int : 318 ms P-R-T Axes : 003 049 012 degrees QTc Int : 428 ms Sinus tachycardia Otherwise normal ECG No previous ECGs available Confirmed by Aravind Yu ([id number]) on 01/24/2020 10:12:18 PM Referred By: REFERRED SELF Confirmed By:Aravind Yu
[2020-01-25] MEDS ORDERED: VANCOMYCIN TROUGH ONE (07:30)
== END 2020-01-24 13:51 | disposition short-term general hospital (02) | DRG 836 ==
LOC: ED 16:24 → SUATTDRO 21:46 → 1E 21:46

== ENCOUNTER 2020-04-14 01:14 | Inpatient (IN) ==
[2020-04-14] MEDS ORDERED: SODIUM CHLORIDE 0.9% 1000ML 1,000 ML IV SCH (01:45)
[2020-04-14] MEDS ORDERED: ACETAMINOPHEN 1,000 MG/100 ML VIAL IV STA (01:45)
[2020-04-14 02:50] LABS: Appearance Urine Slightly Cloudy (Clear); Bilirubin Urine Negative (Negative); Blood Urine 2+ (Negative); Color Urine Yellow; Glucose Urine UA Negative (Negative); Ketones Urine Negative (Negative); Leukocyte Esterase Urine Negative (Negative); Nitrite Urine Negative (Negative); Protein Urine Trace (Negative); Urobilinogen Urine Negative (Negative); pH Urine 5.5 (4.5-7.5)
[2020-04-14 03:01] LABS: INR 1.1 (0.9-1.1); Partial Thromboplastin Time 27.3 Seconds (21.0-31.0); Prothrombin Time 11.9 Seconds (9.0-12.0)
[2020-04-14 03:03] LABS: WBC Urine 0-5 /hpf (0-5)
[2020-04-14 03:04] LABS: Bacteria Urine 1+ (Negative)
[2020-04-14 03:09] LABS: Albumin Level 3.4 gm/dl (3.4-5.0); BUN Creatinine Ratio 10.1 (10-20); Calcium 8.3 mg/dl (8.5-10.1); Creatinine Clr Calc Pharmacy 160.3 ml/min; Est GFR (African American) 138.6; Est GFR (Non-African American) 119.6; Magnesium 1.6 mg/dl (1.8-2.4); Potassium 3.5 mmol/L (3.5-5.1)
[2020-04-14 03:13] LABS: Hematocrit (blood only) 23.2 % (37-47); Mean Corpuscular Hemoglobin 30.1 pg (25-34); Mean Corpuscular Hgb Conc 34.5 g/dL (32-36); Mean Corpuscular Volume 87.2 fL (80-100); Platelet Count 11 K/uL (130-400); Platelet Estimate SIGNIFIC DECREASED (Normal); RDW Coefficient of Variation 15.4 % (11.5-14.5); Red Blood Count 2.66 M/uL (4.2-5.4)
[2020-04-14] MEDS ORDERED: PIPERACILLIN/TAZOBACTAM 4.5 GM/120 ML BAG IV ONE (03:20)
[2020-04-14] MEDS ORDERED: PIPERACILL/TAZOBAC CONSULT ACTIVE PRN ×2 (03:20→06:05)
[2020-04-14] MEDS ORDERED: VANCOMYCIN HCL 2,250 MG in SODIUM CHLORIDE 0.9% 500 ML IV ONE (03:20)
[2020-04-14] MEDS ORDERED: VANCOMYCIN CONSULT ACTIVE PRN ×2 (03:20→06:05)
[2020-04-14 03:24] LABS: Bilirubin,Total 0.9 mg/dl (0.2-1); Globulin 3.4 gm/dl (2.5-4.0); Total Protein 6.8 gm/dl (6.4-8.2); Troponin I 0.125 ng/ml (0-0.045)
[2020-04-14 03:44] LABS: Influenza A virus by PCR Neg for Influ A (Neg); Influenza B virus by PCR Neg for Influ B (Neg)
--- NOTE | 2020-04-14 05:05 | History & Physical Report ---
Date of Service April 14, 2020 Assessment & Plan (1) Neutropenic fever: Neutropenic fever/AML/pancytopenia due to antineoplastic chemotherapy Patient presents to the emergency department with fevers and chills with peak recorded temperature of 102.6 F. She had no specific symptoms other than occasional alternating diarrhea and constipation, which she was told would be related to the chemotherapy. She is also had some generalized muscle aches develop today. Placed on empiric treatment of vancomycin IV, Zosyn IV and levofloxacin IV. Follow all cultures, urine and blood Follow serial laboratories. Zofran 4 mg IV every 6 hours as needed Famotidine 20 mg IV every 12 hours Type and screen Consult Dr. Gonzalez, whom she saw during hospitalization in December. Continue acyclovir 800 mg p.o. twice daily and dasatinib 100 mg p.o. daily. Continue medroxyprogesterone 10 mg p.o. twice daily. Present on Admission?: Yes (2) AML (acute myeloid leukemia): See above Present on Admission?: Yes (3) Pancytopenia due to antineoplastic chemotherapy: Hemoglobin 8, WBC 0.30, and platelets 11. Type and screen pending. Will need platelet transfusion. Present on Admission?: Yes (4) Elevated troponin: Troponin elevated at 0.125. The patient will be admitted to telemetry for serial cardiac enzymes, serial EKG's, cardiac rhythm monitoring and a 2-D echocardiogram with Dopplers. Patient has no symptoms of chest pain, shortness of breath, etc. Chest x-ray does show mild cardiomegaly. Consult cardiology Present on Admission?: Yes (5) Hypomagnesemia: Replace with magnesium sulfate 2 g IV. Repeat in the a.m. tomorrow Present on Admission?: Yes (6) Lab test negative for COVID-19 virus: Patient was lab test negative for COVID-19 virus and influenza virus while in the ED tonight Present on Admission?: Yes (7) Elevated lactic acid level: Lactic acid level elevated at 2.3, and will be repeated per protocol Present on Admission?: Yes History of Present Illness Chief Complaint: The patient presents to the emergency department after being referred by [facility] oncology, where she had her most recent chemo treatment 1 week ago. Primary Care Provider: PT DECLINED The patient is a 29-year-old female with a past medical history including CML. She was initially admitted to [facility] from 01/22-01/23, and was then referred to [facility]. From there she was referred to the [facility], where she was given her diagnosis of CML. Since that time, she is now being followed at [facility] in [place], where she had her most recent chemo treatment 1 week ago. Tonight she developed fevers and chills, with some generalized body aches, and after calling [place], she was referred to the ED at [facility] for further assessment. Work-up in the emergency department [facility] reveals a total white count 0.30, hemoglobin 8, and platelets 11. Allergies Allergy/AdvReac Type Severity Reaction Status Date / Time No Known Allergies Allergy Verified 04/14/20 02:44 Home Medications Home Medications Medication Instructions Recorded Confirmed Type acyclovir 800 mg PO BID 04/14/20 04/14/20 History dasatinib [Sprycel] 100 mg PO DAILY 04/14/20 04/14/20 History medroxyprogesterone 10 mg PO BID 04/14/20 04/14/20 History Past Med/Surg History Medical History (Updated 04/14/20 @ 06:28 by Patrick Tubbs MD) Bone marrow depression Elevated troponin History of cancer Neutropenic fever No pertinent past medical history Social History Smoking Status: Never smoker Tobacco Type: Cigarettes Second Hand Exposure: No; Hx Alcohol Use: No Hx Substance Use: No Preferred Language: Greenlandic Communication Ability: Effective Thoracic Surgeon Required: No Beliefs That Will Affect Care: None Current Living Situation: Spouse Feels Safe at Home: Yes Safety Concerns: Feels Safe At This Time Review of Systems Review of Systems: The patient denies chest pain, palpitations, shortness of breath, dyspnea on exertion, cough, lower extremity swelling, sore throat, sweats, vomiting, diarrhea , constipation, abdominal pain, pelvic pain, blood in urine or stool, dysuria, urinary frequency or urgency, lightheadedness, dizziness, headache, memory loss, loss of consciousness, rash, abnormal bruising or bleeding, imbalance, focal or generalized weakness, numbness or tingling in arms or legs, back or neck pain. The review of systems is otherwise negative other than for that already noted above, and at least 10 systems have been reviewed. Physical Exam Physical Exam: The patient is awake, alert and oriented 3, well developed and well nourished, normocephalic and atraumatic, sitting upright in bed and in no acute distress. HEENT--PERRL, EOMI, mucous membranes and oropharynx dry. Neck--supple. No JVD. No bruits. Thyroid normal, trachea midline, no adenopathy. Heart--normal S1 and S2. No murmurs, rubs or gallops. Lungs--clear bilaterally, no respiratory distress, no accessory muscle use. Abdomen--normal bowel sounds and soft. Nontender. Nondistended, obese. Extremities--no cyanosis or clubbing. No edema. Dermatologic--normal skin turgor, normal color, no abnormal lymph nodes, no rash. Neurologic--cranial nerves II through XII grossly intact. Rheumatologic--normal range of motion. Psychiatric--normal affect. Results & Data Results & Data ([facility]) Vital Signs (Past 12 Hours) Vital Signs Temp Pulse Resp BP Pulse Ox 04/14/20 04:27 98.8 F 04/14/20 04:26 104 H 28 H 113/61 98 04/14/20 03:30 109 H 28 H 131/54 L 96 04/14/20 03:21 100.8 F H 04/14/20 03:00 118 H 24 136/76 97 04/14/20 02:38 125 H 20 147/84 H 100 04/14/20 01:19 102.6 F H 122 H 22 140/85 99 Laboratory Results Laboratory Results WBC 0.30 K/uL (4.8-10.8) L* 04/14/20 02:30 RBC 2.66 M/uL (4.2-5.4) L 04/14/20 02:30 Hgb 8.0 g/dL (12.0-16.0) L 04/14/20 02:30 Hct 23.2 % (37-47) L 04/14/20 02:30 MCV 87.2 fL (80-100) 04/14/20 02:30 MCH 30.1 pg (25-34) 04/14/20 02:30 MCHC 34.5 g/dL (32-36) 04/14/20 02:30 RDW Std Deviation 49.0 fL (36.4-46.3) H 04/14/20 02:30 RDW Coeff of Brock 15.4 % (11.5-14.5) H 04/14/20 02:30 Plt Count 11 K/uL (130-400) L* 04/14/20 02:30 Immature Gran % (Auto) Cancelled 04/14/20 02:30 Neut % (Auto) Cancelled 04/14/20 02:30 Lymph % (Auto) Cancelled 04/14/20 02:30 [place] % (Auto) Cancelled 04/14/20 02:30 Eos % (Auto) Cancelled 04/14/20 02:30 Baso % (Auto) Cancelled 04/14/20 02:30 Neut # (Auto) Cancelled 04/14/20 02:30 Lymph # (Auto) Cancelled 04/14/20 02:30 [place] # (Auto) Cancelled 04/14/20 02:30 Eos # (Auto) Cancelled 04/14/20 02:30 Baso # (Auto) Cancelled 04/14/20 02:30 Immature Gran # (Auto) Cancelled 04/14/20 02:30 Neutrophils % (Manual) Cancelled 04/14/20 02:30 Band Neutrophils % Cancelled 04/14/20 02:30 Lymphocytes % (Manual) Cancelled 04/14/20 02:30 Prolymphocyte % Cancelled 04/14/20 02:30 Reactive Lymphs % (Man) Cancelled 04/14/20 02:30 Monocytes % (Manual) Cancelled 04/14/20 02:30 Eosinophils % (Manual) Cancelled 04/14/20 02:30 Basophils % (Manual) Cancelled 04/14/20 02:30 Metamyelocytes % (Man) Cancelled 04/14/20 02:30 Myelocytes % (Man) Cancelled 04/14/20 02:30 Promyelocytes % (Man) Cancelled 04/14/20 02:30 Blast Cells % (Manual) Cancelled 04/14/20 02:30 Plasma Cell % (Manual) Cancelled 04/14/20 02:30 Other Cells % Cancelled 04/14/20 02:30 Nucleated RBC % Cancelled 04/14/20 02:30 Neutrophils # (Manual) Cancelled 04/14/20 02:30 Band Neutrophils # Cancelled 04/14/20 02:30 Total Absolute Neuts Cancelled 04/14/20 02:30 Lymphocytes # (Manual) Cancelled 04/14/20 02:30 Prolymphocyte # Cancelled 04/14/20 02:30 Reactive Lymphs # Cancelled 04/14/20 02:30 Total Abs Lymphocytes Cancelled 04/14/20 02:30 Monocytes # (Manual) Cancelled 04/14/20 02:30 Eosinophils # (Manual) Cancelled 04/14/20 02:30 Basophils # (Manual) Cancelled 04/14/20 02:30 Metamyelocytes # (Man) Cancelled 04/14/20 02:30 Myelocytes # (Manual) Cancelled 04/14/20 02:30 Promyelocytes # (Man) Cancelled 04/14/20 02:30 Blast Cells # (Man) Cancelled 04/14/20 02:30 Plasma Cell # (Manual) Cancelled 04/14/20 02:30 Other Cells # Cancelled 04/14/20 02:30 Nucleated RBCs # (Man) Cancelled 04/14/20 02:30 Hypersegmented Neuts Cancelled 04/14/20 02:30 Hyposegmented Neuts Cancelled 04/14/20 02:30 Hypogranular Neuts Cancelled 04/14/20 02:30 Large Granular Lymphs Cancelled 04/14/20 02:30 # Lrg Granular Lymphs Cancelled 04/14/20 02:30 Hairy Cells Cancelled 04/14/20 02:30 Smudge Cells Cancelled 04/14/20 02:30 Toxic Granulation Cancelled 04/14/20 02:30 Toxic Vacuolation Cancelled 04/14/20 02:30 Dohle Bodies Cancelled 04/14/20 02:30 Lena Rods Cancelled 04/14/20 02:30 Platelet Estimate SIGNIFIC DECREASED (Normal) 04/14/20 02:30 Hypogranular Platelets Cancelled 04/14/20 02:30 Clumped Platelets Cancelled 04/14/20 02:30 Giant Platelets Cancelled 04/14/20 02:30 Platelet Satelliting Cancelled 04/14/20 02:30 RBC Morphology Cancelled 04/14/20 02:30 Polychromasia Cancelled 04/14/20 02:30 Hypochromasia Cancelled 04/14/20 02:30 Poikilocytosis Cancelled 04/14/20 02:30 Basophilic Stippling Cancelled 04/14/20 02:30 Anisocytosis Cancelled 04/14/20 02:30 Microcytosis Cancelled 04/14/20 02:30 Macrocytosis Cancelled 04/14/20 02:30 Spherocytes Cancelled 04/14/20 02:30 Pappenheimer Bodies Cancelled 04/14/20 02:30 Sickle Cells Cancelled 04/14/20 02:30 Target Cells Cancelled 04/14/20 02:30 Tear Drop Cells Cancelled 04/14/20 02:30 Ovalocytes Cancelled 04/14/20 02:30 Stomatocytes Cancelled 04/14/20 02:30 [place] Bodies Cancelled 04/14/20 02:30 Echinocytes Cancelled 04/14/20 02:30 Acanthocytes (Spur) Cancelled 04/14/20 02:30 Rouleaux Cancelled 04/14/20 02:30 RBC Agglutinates Cancelled 04/14/20 02:30 Schistocytes Cancelled 04/14/20 02:30 RBC Morph Comment Cancelled 04/14/20 02:30 Sezary Cell Cancelled 04/14/20 02:30 PT 11.9 Seconds (9.0-12.0) 04/14/20 02:30 INR 1.1 (0.9-1.1) 04/14/20 02:30 APTT 27.3 Seconds (21.0-31.0) 04/14/20 02:30 PTT Ratio 1.0 04/14/20 02:30 Sodium 141 mmol/L (136-145) 04/14/20 02:30 Potassium 3.5 mmol/L (3.5-5.1) 04/14/20 02:30 Chloride 111 mmol/L (98-107) H 04/14/20 02:30 Carbon Dioxide 23 mmol/L (21-32) 04/14/20 02:30 Anion Gap 7.0 (3-11) 04/14/20 02:30 BUN 7 mg/dl (7-18) 04/14/20 02:30 Creatinine 0.67 mg/dl (0.6-1.2) 04/14/20 02:30 Est Cr Clr Drug Dosing 160.3 ml/min 04/14/20 02:30 Est GFR ( Amer) 138.6 04/14/20 02:30 Est GFR (Non-Af Amer) 119.6 04/14/20 02:30 BUN/Creatinine Ratio 10.1 (10-20) 04/14/20 02:30 Glucose 131 mg/dl (70-99) H 04/14/20 02:30 Lactate 2.0 mmol/L (0.4-2.0) 04/14/20 04:39 Calcium 8.3 mg/dl (8.5-10.1) L 04/14/20 02:30 Magnesium 1.6 mg/dl (1.8-2.4) L 04/14/20 02:30 Total Bilirubin 0.9 mg/dl (0.2-1) 04/14/20 02:30 AST 10 U/L (15-37) L 04/14/20 02:30 ALT 32 U/L (12-78) 04/14/20 02:30 Alkaline Phosphatase 75 U/L (45-117) 04/14/20 02:30 Troponin I 0.125 ng/ml (0-0.045) H* 04/14/20 02:30 Total Protein 6.8 gm/dl (6.4-8.2) 04/14/20 02:30 Albumin 3.4 gm/dl (3.4-5.0) 04/14/20 02:30 Globulin 3.4 gm/dl (2.5-4.0) 04/14/20 02:30 Albumin/Globulin Ratio 1.0 (0.9-2) 04/14/20 02:30 Lipase 81 U/L (73-393) 04/14/20 02:30 Urine Color Yellow 04/14/20 02:30 Urine Appearance Slightly Cloudy (Clear) 04/14/20 02:30 Urine pH 5.5 (4.5-7.5) 04/14/20 02:30 Ur Specific Elbert 1.020 (1.000-1.030) 04/14/20 02:30 Urine Protein Trace (Negative) H 04/14/20 02:30 Urine Glucose (UA) Negative (Negative) 04/14/20 02:30 Urine Ketones Negative (Negative) 04/14/20 02:30 Urine Blood 2+ (Negative) H 04/14/20 02:30 Urine Nitrite Negative (Negative) 04/14/20 02:30 Urine Bilirubin Negative (Negative) 04/14/20 02:30 Urine Urobilinogen Negative (Negative) 04/14/20 02:30 Ur Leukocyte Esterase Negative (Negative) 04/14/20 02:30 Urine RBC 5-10 /hpf (0-4) H 04/14/20 02:30 Urine WBC 0-5 /hpf (0-5) 04/14/20 02:30 Ur Epithelial Cells 10-20 /lpf (0-5) H 04/14/20 02:30 Urine Bacteria 1+ (Negative) H 04/14/20 02:30 COVID-19 Eval Order Covid19 Sent to [facility] 04/14/20 02:39 COVID-19 PCR NEGATIVE (Negative) 04/14/20 02:39 Nasopharyn COVID-19 PCR Cancelled 04/14/20 02:39 Sputum COVID-19 PCR Cancelled 04/14/20 02:39 Influenza Type A (PCR) Neg for Influ A (Neg) 04/14/20 02:39 Influenza Type B (PCR) Neg for Influ B (Neg) 04/14/20 02:39 Blood Type A Positive 04/14/20 03:18 Antibody Screen NEGATIVE 04/14/20 03:18 Code Status & VTE Plan Code Status Full code VTE Prophylaxis Plan VTE Prophylaxis will be ordered: Yes PG Care Time/CCT Total # of Minutes Spent Total Time Spent with Patient: Total time spent is greater than 50% in coordination of care (as documented) at patient's floor/unit and/or counseling patient: Coding Level of Care Code 19231 Initial Inpt Care Lvl 3 Diagnoses Neutropenic fever D70.9; R50.81 AML (acute myeloid leukemia) C92.00 Pancytopenia due to antineoplastic chemotherapy D61.810; T45.1X5A Elevated troponin R79.89 Hypomagnesemia E83.42 Lab test negative for COVID-19 virus Z03.818 Elevated lactic acid level R79.89
--- NOTE | 2020-04-14 05:52 | Emergency Department Note ---
History of Present Illness General Chief complaint: Fever Stated complaint: CANCER-CHILLS,HIGH FEVER,CONSTIPATION,HEART FLUTTE Time Seen by Provider: 04/14/20 01:40 History of Present Illness Maximum Pain Intensity: 7 This is a 29-year-old female presenting to the emergency department for evaluation of fever and chills that started tonight. The patient has a history of cancer and is followed by oncology at [facility] in [place]. The patient states that her last chemotherapy treatment was 1 week ago, and because of this she has been checking her temperature several times a day. She states that her temperature was as high as 102 F tonight. The patient does have chills. She feels like she has been eating and drinking as normal. She will have occasional fluttering of her heart but is not complaining of distinct chest pain. She does have some mild shortness of breath symptoms, but these are unchanged from her baseline. She does not have abdominal pain and feels like she is using the bathroom as normal. The patient has not taken anything [id number] for her symptoms and rates her current discomfort an 8/10. Home Medications Home Medications Medication Instructions Recorded Confirmed Type acyclovir 800 mg PO BID 04/14/20 04/14/20 History dasatinib [Sprycel] 100 mg PO DAILY 04/14/20 04/14/20 History medroxyprogesterone 10 mg PO BID 04/14/20 04/14/20 History Allergies Allergy/AdvReac Type Severity Reaction Status Date / Time No Known Allergies Allergy Verified 04/14/20 02:44 Past Med/Surg History Medical History (Updated 04/14/20 @ 05:55 by Cory Deal PA-C) Bone marrow depression Elevated troponin History of cancer Neutropenic fever No pertinent past medical history Social History Smoking Status: Never smoker Tobacco Type: Cigarettes Second Hand Exposure: No; Hx Alcohol Use: No Hx Substance Use: No Preferred Language: Indonesian Communication Ability: Effective Registration Rep Required: No Beliefs That Will Affect Care: None Current Living Situation: Spouse Feels Safe at Home: Yes Review of Systems A total of 10 systems reviewed and were otherwise negative Physical Exam Vital Signs Vital Signs - 24 hr 04/14/20 01:19 04/14/20 02:21 04/14/20 02:38 Temperature 39.2 C H Temperature Source Oral Pulse Rate 122 H 125 H Pulse Rate from SpO2 Sensor 124 H Respiratory Rate 22 20 Respiratory Effort / Characteristics Non-Labored Spontaneous Respiratory Depth Normal Blood Pressure 140/85 147/84 H Blood Pressure Mean 103 102 Blood Pressure Position Sitting Pulse Oximetry 99 100 Oxygen Delivery Method Room Air Room Air Room Air Sepsis Recent Fever Within 48 Hours Yes Sepsis New/Unexplained Change in Mental Status No Sepsis Action Taken by Nursing Physician Notified 04/14/20 03:00 04/14/20 03:21 04/14/20 03:30 Temperature 38.2 C H Temperature Source Oral Pulse Rate 118 H 109 H Pulse Rate from SpO2 Sensor 119 H 109 H Respiratory Rate 24 28 H Respiratory Effort / Characteristics Respiratory Depth Blood Pressure 136/76 131/54 L Blood Pressure Mean 101 84 Blood Pressure Position Pulse Oximetry 97 96 Oxygen Delivery Method Sepsis Recent Fever Within 48 Hours Sepsis New/Unexplained Change in Mental Status Sepsis Action Taken by Nursing 04/14/20 04:26 04/14/20 04:27 04/14/20 04:30 Temperature 37.1 C Temperature Source Oral Pulse Rate 104 H 105 H Pulse Rate from SpO2 Sensor 104 H 103 H Respiratory Rate 28 H 28 H Respiratory Effort / Characteristics Respiratory Depth Blood Pressure 113/61 129/53 L Blood Pressure Mean 92 64 Blood Pressure Position Pulse Oximetry 98 97 Oxygen Delivery Method Room Air Sepsis Recent Fever Within 48 Hours Sepsis New/Unexplained Change in Mental Status Sepsis Action Taken by Nursing 04/14/20 05:30 Temperature Temperature Source Pulse Rate 98 H Pulse Rate from SpO2 Sensor 100 H Respiratory Rate 29 H Respiratory Effort / Characteristics Respiratory Depth Blood Pressure Blood Pressure Mean Blood Pressure Position Pulse Oximetry 99 Oxygen Delivery Method Sepsis Recent Fever Within 48 Hours Sepsis New/Unexplained Change in Mental Status Sepsis Action Taken by Nursing VITALS: Vitals are noted on the nurse's note and reviewed by myself. Vital signs with noted fever and tachycardia GENERAL: White female who appears ill. She is pleasant and overall cooperative. HEAD: Normocephalic atraumatic. EARS: External ear normal. External auditory canals clear, tympanic membranes pearly celis without erythema or effusion bilaterally. EYES: Pupils equal round and reactive to light and accommodation. Conjunctivae without injection, sclerae without icterus. Extraocular movements intact. NOSE: Patent, turbinates without inflammation or discharge. MOUTH: Mucous membranes moist. Tonsils are not enlarged. Pharynx without erythema, blood, or exudate. Uvula midline. Airway patent. NECK: Supple without nuchal rigidity. No lymphadenopathy. No thyromegaly. Cervical spine is nontender. HEART: Regular rate and rhythm with slight systolic murmur LUNGS: Clear to auscultation bilaterally without wheezes, rales or rhonchi. No retractions or accessory muscle use. ABDOMEN: Positive normal bowel sounds x 4. Soft, nontender, without masses or organomegaly. No guarding or rebound tenderness. MUSCULOSKELETAL: No muscle atrophy, erythema, or edema noted. Full range of motion in all extremities. NEURO: Patient was alert and oriented to person place and time. CN II through XII grossly intact. SKIN: The skin was without rashes, erythema, edema, or bruising. Capillary refill less than 2 seconds. Port noted in the right upper chest wall. Course Administered Medications Vancomycin HCl 2,250 mg/ (Sodium Chloride) 545 mls @ 200 mls/hr IV NOW ONE Stop: 04/14/20 06:03 Last Admin: 04/14/20 04:20 Dose: 200 mls/hr Documented by: [id number] Discontinued Medications Sodium Chloride (Nss 1000ml) 1,000 mls @ 999 mls/hr IV .[id number] ELANA Stop: 04/14/20 02:45 Last Infusion: 04/14/20 03:56 Dose: 0 mls/hr Documented by: [id number] Admin: 04/14/20 02:49 Dose: 999 mls/hr Documented by: [id number] Acetaminophen (Ofirmev) 1,000 mg in 100 mls @ 400 mls/hr IV NOW STA Stop: 04/14/20 01:59 Last Infusion: 04/14/20 03:08 Dose: 0 mls/hr Documented by: [id number] Admin: 04/14/20 02:49 Dose: 400 mls/hr Documented by: [id number] Piperacillin Sod/Tazobactam Sod (Zosyn) 4.5 gm in 120 mls @ 240 mls/hr IV NOW ONE Stop: 04/14/20 03:49 Last Infusion: 04/14/20 04:17 Dose: 0 mls/hr Documented by: [id number] Admin: 04/14/20 03:39 Dose: 240 mls/hr Documented by: [id number] Critical Care Time I have personally spent greater than 45 minutes of critical care time in the direct management of this patient. This includes bedside care, interpretation of diagnostic studies, and testing, discussion with consultants, patient, and fa xochitl members, and other required patient management activities. This 45 minutes is in excess of all separately billable procedures. Medical Decision Making Differential Diagnosis Differential diagnosis: Etiologies such as viral syndrome, otitis, pharyngitis, pneumonia, influenza, meningitis, urinary tract infection, septic arthritis, soft tissue infectious process, intra-abdominal process, sepsis, bacteremia, as well as others were entertained. Laboratory Data Result diagrams: 04/14/20 02:30 04/14/20 02:30 Lab Results 04/14/20 04/14/20 04/14/20 Range/Units 02:30 02:30 02:30 WBC 0.30 L* (4.8-10.8) K/uL RBC 2.66 L (4.2-5.4) M/uL Hgb 8.0 L (12.0-16.0) g/dL Hct 23.2 L (37-47) % MCV 87.2 (80-100) fL MCH 30.1 (25-34) pg MCHC 34.5 (32-36) g/dL RDW Std Deviation 49.0 H (36.4-46.3) fL RDW Coeff of Brock 15.4 H (11.5-14.5) % Plt Count 11 L* (130-400) K/uL Immature Gran % (Auto) Cancelled Neut % (Auto) Cancelled Lymph % (Auto) Cancelled Tensas % (Auto) Cancelled Eos % (Auto) Cancelled Baso % (Auto) Cancelled Neut # (Auto) Cancelled Lymph # (Auto) Cancelled [place] # (Auto) Cancelled Eos # (Auto) Cancelled Baso # (Auto) Cancelled Immature Gran # (Auto) Cancelled Neutrophils % (Manual) Cancelled Band Neutrophils % Cancelled Lymphocytes % (Manual) Cancelled Prolymphocyte % Cancelled Reactive Lymphs % (Man) Cancelled Monocytes % (Manual) Cancelled Eosinophils % (Manual) Cancelled Basophils % (Manual) Cancelled Metamyelocytes % (Man) Cancelled Myelocytes % (Man) Cancelled Promyelocytes % (Man) Cancelled Blast Cells % (Manual) Cancelled Plasma Cell % (Manual) Cancelled Other Cells % Cancelled Nucleated RBC % Cancelled Neutrophils # (Manual) Cancelled Band Neutrophils # Cancelled Total Absolute Neuts Cancelled Lymphocytes # (Manual) Cancelled Prolymphocyte # Cancelled Reactive Lymphs # Cancelled Total Abs Lymphocytes Cancelled Monocytes # (Manual) Cancelled Eosinophils # (Manual) Cancelled Basophils # (Manual) Cancelled Metamyelocytes # (Man) Cancelled Myelocytes # (Manual) Cancelled Promyelocytes # (Man) Cancelled Blast Cells # (Man) Cancelled Plasma Cell # (Manual) Cancelled Other Cells # Cancelled Nucleated RBCs # (Man) Cancelled Hypersegmented Neuts Cancelled Hyposegmented Neuts Cancelled Hypogranular Neuts Cancelled Large Granular Lymphs Cancelled # Lrg Granular Lymphs Cancelled Hairy Cells Cancelled Smudge Cells Cancelled Toxic Granulation Cancelled Toxic Vacuolation Cancelled Dohle Bodies Cancelled Lena Rods Cancelled Platelet Estimate SIGNIFIC DECREASED (Normal) Hypogranular Platelets Cancelled Clumped Platelets Cancelled Giant Platelets Cancelled Platelet Satelliting Cancelled RBC Morphology Cancelled Polychromasia Cancelled Hypochromasia Cancelled Poikilocytosis Cancelled Basophilic Stippling Cancelled Anisocytosis Cancelled Microcytosis Cancelled Macrocytosis Cancelled Spherocytes Cancelled Pappenheimer Bodies Cancelled Sickle Cells Cancelled Target Cells Cancelled Tear Drop Cells Cancelled Ovalocytes Cancelled Stomatocytes Cancelled Ham-Kelso Bodies Cancelled Echinocytes Cancelled Acanthocytes (Spur) Cancelled Rouleaux Cancelled RBC Agglutinates Cancelled Schistocytes Cancelled RBC Morph Comment Cancelled Sezary Cell Cancelled PT (9.0-12.0) Seconds INR (0.9-1.1) APTT (21.0-31.0) Seconds PTT Ratio Sodium 141 (136-145) mmol/L Potassium 3.5 (3.5-5.1) mmol/L Chloride 111 H (98-107) mmol/L Carbon Dioxide 23 (21-32) mmol/L Anion Gap 7.0 (3-11) BUN 7 (7-18) mg/dl Creatinine 0.67 (0.6-1.2) mg/dl Est Cr Clr Drug Dosing 160.3 ml/min Est GFR ( Amer) 138.6 Est GFR (Non-Af Amer) 119.6 BUN/Creatinine Ratio 10.1 (10-20) Glucose 131 H (70-99) mg/dl Lactate 2.3 H* (0.4-2.0) mmol/L Calcium 8.3 L (8.5-10.1) mg/dl Magnesium 1.6 L (1.8-2.4) mg/dl Total Bilirubin 0.9 (0.2-1) mg/dl AST 10 L (15-37) U/L ALT 32 (12-78) U/L Alkaline Phosphatase 75 (45-117) U/L Troponin I 0.125 H* (0-0.045) ng/ml Total Protein 6.8 (6.4-8.2) gm/dl Albumin 3.4 (3.4-5.0) gm/dl Globulin 3.4 (2.5-4.0) gm/dl Albumin/Globulin Ratio 1.0 (0.9-2) Lipase 81 (73-393) U/L Urine Color Urine Appearance (Clear) Urine pH (4.5-7.5) Ur Specific Clare (1.000-1.030) Urine Protein (Negative) Urine Glucose (UA) (Negative) Urine Ketones (Negative) Urine Blood (Negative) Urine Nitrite (Negative) Urine Bilirubin (Negative) Urine Urobilinogen (Negative) Ur Leukocyte Esterase (Negative) Urine RBC (0-4) /hpf Urine WBC (0-5) /hpf Ur Epithelial Cells (0-5) /lpf Urine Bacteria (Negative) COVID-19 Eval Order COVID-19 PCR (Negative) Nasopharyn COVID-19 PCR Sputum COVID-19 PCR Influenza Type A (PCR) (Neg) Influenza Type B (PCR) (Neg) Blood Type Antibody Screen 04/14/20 04/14/20 04/14/20 Range/Units 02:30 02:30 02:39 WBC (4.8-10.8) K/uL RBC (4.2-5.4) M/uL Hgb (12.0-16.0) g/dL Hct (37-47) % MCV (80-100) fL MCH (25-34) pg MCHC (32-36) g/dL RDW Std Deviation (36.4-46.3) fL RDW Coeff of Brock (11.5-14.5) % Plt Count (130-400) K/uL Immature Gran % (Auto) Neut % (Auto) Lymph % (Auto) Tensas % (Auto) Eos % (Auto) Baso % (Auto) Neut # (Auto) Lymph # (Auto) [place] # (Auto) Eos # (Auto) Baso # (Auto) Immature Gran # (Auto) Neutrophils % (Manual) Band Neutrophils % Lymphocytes % (Manual) Prolymphocyte % Reactive Lymphs % (Man) Monocytes % (Manual) Eosinophils % (Manual) Basophils % (Manual) Metamyelocytes % (Man) Myelocytes % (Man) Promyelocytes % (Man) Blast Cells % (Manual) Plasma Cell % (Manual) Other Cells % Nucleated RBC % Neutrophils # (Manual) Band Neutrophils # Total Absolute Neuts Lymphocytes # (Manual) Prolymphocyte # Reactive Lymphs # Total Abs Lymphocytes Monocytes # (Manual) Eosinophils # (Manual) Basophils # (Manual) Metamyelocytes # (Man) Myelocytes # (Manual) Promyelocytes # (Man) Blast Cells # (Man) Plasma Cell # (Manual) Other Cells # Nucleated RBCs # (Man) Hypersegmented Neuts Hyposegmented Neuts Hypogranular Neuts Large Granular Lymphs # Lrg Granular Lymphs Hairy Cells Smudge Cells Toxic Granulation Toxic Vacuolation Dohle Bodies Lena Rods Platelet Estimate (Normal) Hypogranular Platelets Clumped Platelets Giant Platelets Platelet Satelliting RBC Morphology Polychromasia Hypochromasia Poikilocytosis Basophilic Stippling Anisocytosis Microcytosis Macrocytosis Spherocytes Pappenheimer Bodies Sickle Cells Target Cells Tear Drop Cells Ovalocytes Stomatocytes Ham-Kelso Bodies Echinocytes Acanthocytes (Spur) Rouleaux RBC Agglutinates Schistocytes RBC Morph Comment Sezary Cell PT 11.9 (9.0-12.0) Seconds INR 1.1 (0.9-1.1) APTT 27.3 (21.0-31.0) Seconds PTT Ratio 1.0 Sodium (136-145) mmol/L Potassium (3.5-5.1) mmol/L Chloride (98-107) mmol/L Carbon Dioxide (21-32) mmol/L Anion Gap (3-11) BUN (7-18) mg/dl Creatinine (0.6-1.2) mg/dl Est Cr Clr Drug Dosing ml/min Est GFR ( Amer) Est GFR (Non-Af Amer) BUN/Creatinine Ratio (10-20) Glucose (70-99) mg/dl Lactate (0.4-2.0) mmol/L Calcium (8.5-10.1) mg/dl Magnesium (1.8-2.4) mg/dl Total Bilirubin (0.2-1) mg/dl AST (15-37) U/L ALT (12-78) U/L Alkaline Phosphatase (45-117) U/L Troponin I (0-0.045) ng/ml Total Protein (6.4-8.2) gm/dl Albumin (3.4-5.0) gm/dl Globulin (2.5-4.0) gm/dl Albumin/Globulin Ratio (0.9-2) Lipase (73-393) U/L Urine Color Yellow Urine Appearance Slightly Cloudy (Clear) Urine pH 5.5 (4.5-7.5) Ur Specific Clare 1.020 (1.000-1.030) Urine Protein Trace H (Negative) Urine Glucose (UA) Negative (Negative) Urine Ketones Negative (Negative) Urine Blood 2+ H (Negative) Urine Nitrite Negative (Negative) Urine Bilirubin Negative (Negative) Urine Urobilinogen Negative (Negative) Ur Leukocyte Esterase Negative (Negative) Urine RBC 5-10 H (0-4) /hpf Urine WBC 0-5 (0-5) /hpf Ur Epithelial Cells 10-20 H (0-5) /lpf Urine Bacteria 1+ H (Negative) COVID-19 Eval Order COVID-19 PCR (Negative) Nasopharyn COVID-19 PCR Sputum COVID-19 PCR Influenza Type A (PCR) Neg for Influ A (Neg) Influenza Type B (PCR) Neg for Influ B (Neg) Blood Type Antibody Screen 04/14/20 04/14/20 04/14/20 Range/Units 02:39 02:39 02:39 WBC (4.8-10.8) K/uL RBC (4.2-5.4) M/uL Hgb (12.0-16.0) g/dL Hct (37-47) % MCV (80-100) fL MCH (25-34) pg MCHC (32-36) g/dL RDW Std Deviation (36.4-46.3) fL RDW Coeff of Brock (11.5-14.5) % Plt Count (130-400) K/uL Immature Gran % (Auto) Neut % (Auto) Lymph % (Auto) [place] % (Auto) Eos % (Auto) Baso % (Auto) Neut # (Auto) Lymph # (Auto) [place] # (Auto) Eos # (Auto) Baso # (Auto) Immature Gran # (Auto) Neutrophils % (Manual) Band Neutrophils % Lymphocytes % (Manual) Prolymphocyte % Reactive Lymphs % (Man) Monocytes % (Manual) Eosinophils % (Manual) Basophils % (Manual) Metamyelocytes % (Man) Myelocytes % (Man) Promyelocytes % (Man) Blast Cells % (Manual) Plasma Cell % (Manual) Other Cells % Nucleated RBC % Neutrophils # (Manual) Band Neutrophils # Total Absolute Neuts Lymphocytes # (Manual) Prolymphocyte # Reactive Lymphs # Total Abs Lymphocytes Monocytes # (Manual) Eosinophils # (Manual) Basophils # (Manual) Metamyelocytes # (Man) Myelocytes # (Manual) Promyelocytes # (Man) Blast Cells # (Man) Plasma Cell # (Manual) Other Cells # Nucleated RBCs # (Man) Hypersegmented Neuts Hyposegmented Neuts Hypogranular Neuts Large Granular Lymphs # Lrg Granular Lymphs Hairy Cells Smudge Cells Toxic Granulation Toxic Vacuolation Dohle Bodies Lena Rods Platelet Estimate (Normal) Hypogranular Platelets Clumped Platelets Giant Platelets Platelet Satelliting RBC Morphology Polychromasia Hypochromasia Poikilocytosis Basophilic Stippling Anisocytosis Microcytosis Macrocytosis Spherocytes Pappenheimer Bodies Sickle Cells Target Cells Tear Drop Cells Ovalocytes Stomatocytes Ham-Kelso Bodies Echinocytes Acanthocytes (Spur) Rouleaux RBC Agglutinates Schistocytes RBC Morph Comment Sezary Cell PT (9.0-12.0) Seconds INR (0.9-1.1) APTT (21.0-31.0) Seconds PTT Ratio Sodium (136-145) mmol/L Potassium (3.5-5.1) mmol/L Chloride (98-107) mmol/L Carbon Dioxide (21-32) mmol/L Anion Gap (3-11) BUN (7-18) mg/dl Creatinine (0.6-1.2) mg/dl Est Cr Clr Drug Dosing ml/min Est GFR ( Amer) Est GFR (Non-Af Amer) BUN/Creatinine Ratio (10-20) Glucose (70-99) mg/dl Lactate (0.4-2.0) mmol/L Calcium (8.5-10.1) mg/dl Magnesium (1.8-2.4) mg/dl Total Bilirubin (0.2-1) mg/dl AST (15-37) U/L ALT (12-78) U/L Alkaline Phosphatase (45-117) U/L Troponin I (0-0.045) ng/ml Total Protein (6.4-8.2) gm/dl Albumin (3.4-5.0) gm/dl Globulin (2.5-4.0) gm/dl Albumin/Globulin Ratio (0.9-2) Lipase (73-393) U/L Urine Color Urine Appearance (Clear) Urine pH (4.5-7.5) Ur Specific Clare (1.000-1.030) Urine Protein (Negative) Urine Glucose (UA) (Negative) Urine Ketones (Negative) Urine Blood (Negative) Urine Nitrite (Negative) Urine Bilirubin (Negative) Urine Urobilinogen (Negative) Ur Leukocyte Esterase (Negative) Urine RBC (0-4) /hpf Urine WBC (0-5) /hpf Ur Epithelial Cells (0-5) /lpf Urine Bacteria (Negative) COVID-19 Eval Order Covid19 [facility] COVID-19 PCR NEGATIVE (Negative) Nasopharyn COVID-19 PCR Cancelled Sputum COVID-19 PCR Cancelled Influenza Type A (PCR) (Neg) Influenza Type B (PCR) (Neg) Blood Type Antibody Screen 04/14/20 04/14/20 Range/Units 03:18 04:39 WBC (4.8-10.8) K/uL RBC (4.2-5.4) M/uL Hgb (12.0-16.0) g/dL Hct (37-47) % MCV (80-100) fL MCH (25-34) pg MCHC (32-36) g/dL RDW Std Deviation (36.4-46.3) fL RDW Coeff of Brock (11.5-14.5) % Plt Count (130-400) K/uL Immature Gran % (Auto) Neut % (Auto) Lymph % (Auto) Tens[place] % (Auto) Eos % (Auto) Baso % (Auto) Neut # (Auto) Lymph # (Auto) Tens[place] # (Auto) Eos # (Auto) Baso # (Auto) Immature Gran # (Auto) Neutrophils % (Manual) Band Neutrophils % Lymphocytes % (Manual) Prolymphocyte % Reactive Lymphs % (Man) Monocytes % (Manual) Eosinophils % (Manual) Basophils % (Manual) Metamyelocytes % (Man) Myelocytes % (Man) Promyelocytes % (Man) Blast Cells % (Manual) Plasma Cell % (Manual) Other Cells % Nucleated RBC % Neutrophils # (Manual) Band Neutrophils # Total Absolute Neuts Lymphocytes # (Manual) Prolymphocyte # Reactive Lymphs # Total Abs Lymphocytes Monocytes # (Manual) Eosinophils # (Manual) Basophils # (Manual) Metamyelocytes # (Man) Myelocytes # (Manual) Promyelocytes # (Man) Blast Cells # (Man) Plasma Cell # (Manual) Other Cells # Nucleated RBCs # (Man) Hypersegmented Neuts Hyposegmented Neuts Hypogranular Neuts Large Granular Lymphs # Lrg Granular Lymphs Hairy Cells Smudge Cells Toxic Granulation Toxic Vacuolation Dohle Bodies Lena Rods Platelet Estimate (Normal) Hypogranular Platelets Clumped Platelets Giant Platelets Platelet Satelliting RBC Morphology Polychromasia Hypochromasia Poikilocytosis Basophilic Stippling Anisocytosis Microcytosis Macrocytosis Spherocytes Pappenheimer Bodies Sickle Cells Target Cells Tear Drop Cells Ovalocytes Stomatocytes Ham-Kelso Bodies Echinocytes Acanthocytes (Spur) Rouleaux RBC Agglutinates Schistocytes RBC Morph Comment Sezary Cell PT (9.0-12.0) Seconds INR (0.9-1.1) APTT (21.0-31.0) Seconds PTT Ratio Sodium (136-145) mmol/L Potassium (3.5-5.1) mmol/L Chloride (98-107) mmol/L Carbon Dioxide (21-32) mmol/L Anion Gap (3-11) BUN (7-18) mg/dl Creatinine (0.6-1.2) mg/dl Est Cr Clr Drug Dosing ml/min Est GFR ( Amer) Est GFR (Non-Af Amer) BUN/Creatinine Ratio (10-20) Glucose (70-99) mg/dl Lactate 2.0 (0.4-2.0) mmol/L Calcium (8.5-10.1) mg/dl Magnesium (1.8-2.4) mg/dl Total Bilirubin (0.2-1) mg/dl AST (15-37) U/L ALT (12-78) U/L Alkaline Phosphatase (45-117) U/L Troponin I (0-0.045) ng/ml Total Protein (6.4-8.2) gm/dl Albumin (3.4-5.0) gm/dl Globulin (2.5-4.0) gm/dl Albumin/Globulin Ratio (0.9-2) Lipase (73-393) U/L Urine Color Urine Appearance (Clear) Urine pH (4.5-7.5) Ur Specific Clare (1.000-1.030) Urine Protein (Negative) Urine Glucose (UA) (Negative) Urine Ketones (Negative) Urine Blood (Negative) Urine Nitrite (Negative) Urine Bilirubin (Negative) Urine Urobilinogen (Negative) Ur Leukocyte Esterase (Negative) Urine RBC (0-4) /hpf Urine WBC (0-5) /hpf Ur Epithelial Cells (0-5) /lpf Urine Bacteria (Negative) COVID-19 Eval Order COVID-19 PCR (Negative) Nasopharyn COVID-19 PCR Sputum COVID-19 PCR Influenza Type A (PCR) (Neg) Influenza Type B (PCR) (Neg) Blood Type A Positive Antibody Screen NEGATIVE ECG Data Attestation: I personally reviewed and interpreted this ECG as follows: Indication: + other (Fever, Tachycardia) Additional Comments: Sinus tachycardia @[address] elevation Otherwise normal ECG When compared with ECG of 23-JAN-2020 18:14, No significant change was found Blood Pressure Blood Pressure Findings: Normal blood pressure MDM Narrative Physical exam and history were performed. Nursing notes, EMR, and Medication List were personally reviewed. Patient appears to have a history of cancer on chemotherapy. She is febrile on presentation to the department and does appear ill. IV access was established and labs were obtained. The patient was hydrated with normal saline and given IV Tylenol for comfort. Blood cultures were gathered. EKG was performed as above. The patient was cared for under airborne and contact precautions. Influenza and COVID testing was performed. Chest x-ray was gathered. An order was placed for continuous cardiac monitoring. The monitor shows a rate of 98 with normal sinus rhythm. The patient's blood work is as above and was reviewed. The patient's blood work is highly concerning as her white blood cell count is 0.30, representing a significant decrease from her last labs that we have at this facility where her white count was over 5. She does have some mild anemia with a hemoglobin of 8.0, however this is somewhat improved from previous. Platelet count is 11, which is worse than her chronic thrombocytopenia, where she has been around 50. INR is 1.1. She does not have significant electrolyte imbalance. Transaminases and lipase are not diagnostic. Her troponin is detectable at 0.125. Urine is with blood but no obvious evidence of infection. Lactic is elevated at 2.3 with cultures pending. Chest x-ray does not show obvious acute process with official radiology read pending. Influenza is negative. Rapid COVID testing was performed and was also negative. The case was discussed with my attending physician. Out of concern for her wellbeing and neutropenic fever the patient was empirically started on vancomycin and Zosyn. She did have improvement of her vital signs with hydration and Tylenol. She did defervesce here in the ER, and did feel better after hydration. Overall the patient does not seem well for discharge home. The case was discussed with the on-call hospitalist, Dr. Tubbs, who did evaluate the patient here in the ER. Please see Dr. Tubbs's dictation for further patient course, plan, and disposition. The chart was completed utilizing [employer] Speech Voice Recognition Software. Grammatical errors, random word insertions, pronoun errors, and incomplete sentences are an occasional consequence of this system due to software limitations, ambient noise, and hardware issues. Any formal questions or concerns about the content, text, or information contained within the body of this dictation should be directly addressed to the provider for clarification. . Impression & Plan Neutropenic fever, Thrombocytopenia, Elevated troponin, Elevated lactic acid level, Lab test negative for COVID-19 virus Discharge Plan Visit Data Chief Complaint: Fever Stated Complaint: CANCER-CHILLS,HIGH FEVER,CONSTIPATION,HEART FLUTTE ED Provider: Opal Snyder ED Midlevel Provider: Cory Deal Discharge Problem: Neutropenic fever, Thrombocytopenia, Elevated troponin, Elevated lactic acid level, Lab test negative for COVID-19 virus Patient Disposition: Admitted As Inpatient Discharge Instructions Interventions: ED Discharge Assessment Last Done: 04/14/20 05:44
[2020-04-14] MEDS ORDERED: PIPERACILLIN/TAZOBACTAM 4.5 GM in DEXTROSE 5% 100 ML IV STA (06:05)
[2020-04-14] MEDS ORDERED: VANCOMYCIN HCL 1,000 MG in SODIUM CHLORIDE 0.9% 250 ML IV SCH (06:05)
[2020-04-14] MEDS ORDERED: ACETAMINOPHEN 325 MG TAB PO PRN (06:05)
[2020-04-14] MEDS ORDERED: ONDANSETRON INJ 2 MG/ML 2 ML VIAL IV PRN (06:05)
[2020-04-14] MEDS: ONDANSETRON INJ 2 MG/ML 2 ML VIAL IV PRN ×3 (06:34→23:30)
[2020-04-14] MEDS ORDERED: SODIUM CHLORIDE 0.9% 250 ML IV PRN ×2 (06:37→10:33)
[2020-04-14] MEDS ORDERED: LEVOFLOXACIN/D5W 500 MG/100 ML BAG IV SCH (06:45)
[2020-04-14] MEDS ORDERED: FAMOTIDINE 20 MG in SYRINGE 3 ML IV SCH (07:00)
--- NOTE | 2020-04-14 08:04 | XRay Report ---
XR chest 1V portable CLINICAL HISTORY: Fever COMPARISON STUDY: 01/23/2020 FINDINGS: The heart is enlarged and slightly globular configuration. There is a right-sided A-Port ca theter. There is no focal pulmonary consolidation. There is no failure. There are no pleural effusion s[ IMPRESSION: 1. Interval placement of a right-sided A-Port catheter 2. Slightly globular configuration of the heart which appears slightly enlarged 3. No evidence of focal pulmonary consolidation ACT 112: Negative or not required by law. Electronically signed by: Atul Garcias M.D. 04/14/2020 8:03 AM
[2020-04-14] MEDS: NSS + 20MEQ KCL 20 MEQ/1,000 ML BAG IV SCH ×2 (08:33→20:19)
[2020-04-14] MEDS: MAGNESIUM SULFATE / D5W 1 GM/100 ML BAG IV SCH ×2 (08:34→09:52)
[2020-04-14] MEDS: PIPERACILLIN/TAZOBACTAM 4.5 GM in DEXTROSE 5% 100 ML IV SCH ×2 (08:49→17:46)
[2020-04-14] MEDS: SACCHAROMYCES BOULARDII 250 MG CAP PO SCH ×2 (08:50→20:21)
[2020-04-14] MEDS: ACYCLOVIR 400 MG TAB PO SCH ×2 (08:50→20:21)
[2020-04-14] MEDS: MEDROXYPROGESTERONE ACETATE 10 MG TAB PO SCH ×2 (08:50→20:21)
[2020-04-14] MEDS ORDERED: POLYETHYLENE (MIRALAX) 17 GM PACK PO PRN ×2 (10:27→11:16)
--- NOTE | 2020-04-14 11:18 | Cardiology Consultation ---
Date of Consultation April 14, 2020 Assessment & Plan (1) Elevated troponin: -minor elevation of no major clinical concern. -likely secondary to her hyperdynamic LV function, her tachycardia, and her clinical state at presentation. -no ischemic workup necessary. (2) Pericardial effusion: -small circumferential effusion noted on her echocardiogram. -likely related to her leukemia. -repeat study in approximately 1 month. History of Present Illness Attending Physician: Doe Steve DO History of Present Illness Ms. Arias is a 29-year-old female admitted yesterday with neutropenic fever. This consultation was ordered as the patient has a mildly elevated troponin level. The patient's recent history began in December when she was diagnosed with bone marrow suppression and elevated lymphocytes and blast cells. 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 She started on chemotherapy, with her most recent session 1 week ago. She presented to the emergency room yesterday complaining of fever, chills, and diffuse myalgias. She was admitted with neutropenic fever. The patient has not experienced any chest discomfort or limiting dyspnea recently. She further denies syncope, presyncope, PND, orthopnea, palpitations, lower extremity edema, and claudication. The patient has never known of a cardiac event. She has never had a formal cardiac evaluation. Currently, patient is resting comfortably in bed without complaints of chest pain or dyspnea. Past medical and surgical history 1. AML/CML 2. 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 Allergies Allergy/AdvReac Type Severity Reaction Status Date / Time No Known Allergies Allergy Verified 04/14/20 02:44 Home Medications Home Medications Medication Instructions Recorded Confirmed Type acyclovir 800 mg PO BID 04/14/20 04/14/20 History dasatinib [Sprycel] 100 mg PO DAILY 04/14/20 04/14/20 History medroxyprogesterone 10 mg PO BID 04/14/20 04/14/20 History Patient History Medical History (Updated 04/14/20 @ 11:22 by Han Levine MD) Bone marrow depression Elevated troponin History of cancer Neutropenic fever No pertinent past medical history Social History Smoking Status: Never smoker Tobacco Type: Cigarettes Second Hand Exposure: No; Hx Alcohol Use: No Hx Substance Use: No Preferred Language: [place] Communication Ability: Effective Cash Applications Associate Required: No Beliefs That Will Affect Care: None marital status: Current Living Situation: Spouse Feels Safe at Home: Yes Safety Concerns: Feels Safe At This Time Physical Exam Physical Exam: In general this is a well-developed well-nourished white female in no acute distress. HEENT exam is negative. Neck is supple with full carotid upstrokes. There are no carotid bruits. Jugular venous pressure is fl at at 90. There is no thyromegaly. Cardiovascular exam reveals a regular rhythm with a normal S1 and S2. No S3, S4, or murmurs are noted. Lungs are clear without rales, rhonchi, or wheezes. Abdomen is soft and nontender without bruits. Extremities reveal intact radial artery and posterior tibial pulses bilaterally. There is no peripheral edema. Results & Data ([facility]) Vital Signs (Past 12 Hours) Vital Signs Temp Pulse Pulse Resp BP BP Pulse Ox 04/14/20 07:53 36.9 C 84 16 158/60 H 96 04/14/20 07:45 93 H 04/14/20 06:10 37 C 96 H 20 152/56 H 99 04/14/20 05:30 98 H 29 H 99 04/14/20 04:30 105 H 28 H 129/53 L 97 04/14/20 04:27 37.1 C 04/14/20 04:26 104 H 28 H 113/61 98 04/14/20 03:30 109 H 28 H 131/54 L 96 04/14/20 03:21 38.2 C H 04/14/20 03:00 118 H 24 136/76 97 04/14/20 02:38 125 H 20 147/84 H 100 04/14/20 01:19 39.2 C H 122 H 22 140/85 99 Laboratory Results CBC notes hemoglobin of 8.0, hematocrit 23.2, white count 0.3, [place] [address]. Electrolytes note a sodium of 141, potassium 3.5, chloride 111, bicarb 23, BUN 7, creatinine 0.67, glucose of 131. Magnesium level is low at 1.6. AST is 10 with an ALT of 32. Initial troponin was 0.125 with a follow-up value of 0.105. Diagnostic Findings EKG notes sinus tachycardia. Chest x-ray notes cardiomegaly with a globular cardiac silhouette. Echocardiogram notes hyperdynamic systolic function with ejection fraction of greater than 70%. There is a small circumferential pericardial effusion. 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
--- NOTE | 2020-04-14 12:07 | XCELERA ---
[id number]
--- NOTE | 2020-04-14 12:37 | Electrocardiogram Report ---
Test Reason : Blood Pressure : / mmHG Vent. Rate : 115 BPM Atrial Rate : 115 BPM P-R Int : 142 ms QRS Dur : 068 ms QT Int : 310 ms P-R-T Axes : 029 048 036 degrees QTc Int : 428 ms Sinus tachycardia Otherwise normal ECG When compared with ECG of 23-JAN-2020 18:14, No significant change was found Confirmed by Han Levine ([id number]) on 04/14/2020 12:37:11 PM Referred By: REFERRED SELF Confirmed By:Han Levine
[2020-04-14] MEDS: VANCOMYCIN HCL 1,500 MG in SODIUM CHLORIDE 0.9% 500 ML IV SCH ×2 (13:31→20:19)
[2020-04-14] MEDS: POLYETHYLENE (MIRALAX) 17 GM PACK PO SCH ×3 (13:42→21:53)
[2020-04-14] MEDS: ACETAMINOPHEN 325 MG TAB PO PRN ×2 (14:06→23:27)
--- NOTE | 2020-04-14 17:14 | Medical Student Progress Note ---
Date of Service April 14, 2020 Assessment & Plan (1) Neutropenic fever: Kirstin Arias is a 29 year female with a recent diagnosis (December 2019) of CML who presented to the ED on 04/14 with fever who has improved since admission, but continues to spike fevers. 1. Neutropenic fever - temps have been downtrending since admission (39.2 on admission --> 37.2 most recently), but with a few episodes of 38 C today - likely due to infection of unknown etiology: -patient reports no urinary symptoms (rule out UTI), no respiratory symptoms -CXR showed cardiomegaly, no lung findings; patient reports no respiratory symptoms (rule out pneumonia) -blood and urine cx are pending - continue empiric IV Zosyn and vancomycin - d/c levofloxacin - continue PRN acetaminophen - continue home acyclovir 2. Pancytopenia likely secondary to chemotherapy (dasatinib) - WBC 0.3, Hgb 8.0, Hct 23.3, Plts 11 - transfuse with 1 bag of platelets due to thrombocytopenia - consult heme/onc - continue home dasatinib 3. Bilateral lower abdominal pain and rectal pain - patient reports chronic constipation, but no blood in stool - continue home probiotic - administer Miralax 4. Nausea - continue prn Zofran 5. Elevated troponin - heart palpitations have resolved - downtrending (0.125 on admission --> 0.045) - EKG (04/14) showed sinus tachycardia, otherwise normal - echo (04/14) showed hyperdyamic LV, EF > 70%, small pericardial effusion - appreciate cardiology consult: - "minor elevation of no major clinical concern, likely secondary to her hyperdynamic LV function, her tachycardia, and her clinical state at presentation" 6. Pericardial effusion - small effusion present on echo (04/14) - appreciate cardiology consult: - "small circumferential effusion noted on her echocardiogram, likely related to her leukemia" - repeat echo in 1 month in outpatient setting 7. Hypomagnesemia - 1.6 on admission - - recheck in AM (2) Pancytopenia due to antineoplastic chemotherapy: (3) Bilateral lower abdominal pain: (4) Nausea: (5) Elevated troponin: (6) Pericardial effusion: (7) Hypomagnesemia: Admission and Anticipated Discharge Date Admission Date: April 14, 2020 Supervising Attestation I personally examined the patient and verified all maldonado points of history and exam, discussed case, and agree with decision making with Fernando Alcaraz MS3 feeling better than when she came in. HPI otherwise as above vitals noted nad heent nc at mmm breathing unlabored no accessory muscles good effort skin no rashes no pallor or icterus neutropenic fever - continue empiric abx pending further culture growth and clinical follow up otherwise as above Subjective Patient reports feeling afebrile since admission, but says that she continues to have chills and sweats. In addition, she complains of nausea, fatigue, and headache (7/10). She reports having 7/10 rectal and lower abdominal pain with some upper abdominal discomfort. She has "bone pain" in her BLE, especially the left, but she says this is chronic. She reports that the palpitations she presented with have resolved. Review of Systems Constitutional: + fever, + chills, + sweats, + body aches, + fatigue and + anorexia Respiratory: no cough and no dyspnea Cardiovascular: no chest pain and no palpitations Gastrointestinal: + abdominal pain (/10), + nausea and + constipation; no heartburn, no vomiting and no blood in stools rectal pain (/10) Genitourinary: no dysuria, no urinary frequency, no urinary urgency, no hematuria and no abnormal periods Musculoskeletal: BLE "bone pain," worse in LLE Neurologic: + headache(s) (10) Hematologic / Lymphatic: no lymphadenopathy Physical Exam Constitutional: + ill appearing, + obese and cooperative Respiratory: normal respiratory effort, lungs clear to auscultation Cardiovascular: Heart Sounds: normal S1 and normal S2; no gallop, no murmur and no cardiac rub Gastrointestinal (Abdomen): Inspection/Auscultation: normal bowel sounds Percussion/Palpation: + abdomen tender (bilateral lower quadrants) and abdomen soft; no guarding and no hepatosplenomegaly (difficult to ascertain due to habitus) Skin: + lesion (ulcerated, on her groin) Trauma: no laceration and no contusion Lymphatic: no preauricular lymphadenopathy, no cervical lymphadenopathy and no subclavicular lymphadenopathy Results & Data ([facility]) Vital Signs (Past 12 Hours) Vital Signs Temp Pulse Pulse Resp BP BP Pulse Ox 04/14/20 15:51 97 H 04/14/20 15:39 37.2 C 92 H 26 H 109/52 L 96 04/14/20 14:56 37.9 C H 04/14/20 13:29 38 C H 103 H 12 122/71 97 04/14/20 12:46 37.8 C H 101 H 16 130/77 98 04/14/20 12:16 37.9 C H 96 H 16 127/72 97 04/14/20 12:01 38 C H 103 H 16 112/71 97 04/14/20 11:34 38 C H 98 H 16 139/61 97 04/14/20 07:53 36.9 C 84 16 158/60 H 96 04/14/20 07:45 93 H 04/14/20 07:28 04/14/20 06:10 37 C 96 H 20 152/56 H 99 04/14/20 05:30 98 H 29 H 99 Pulse Ox 04/14/20 15:51 04/14/20 15:39 04/14/20 14:56 04/14/20 13:29 04/14/20 12:46 04/14/20 12:16 04/14/20 12:01 04/14/20 11:34 04/14/20 07:53 04/14/20 07:45 04/14/20 07:28 96 04/14/20 06:10 04/14/20 05:30
[2020-04-14] MEDS: FAMOTIDINE 20 MG TAB PO SCH (20:21)
[2020-04-15] MEDS: ACETAMINOPHEN 325 MG TAB PO PRN (00:10)
[2020-04-15] MEDS: PIPERACILLIN/TAZOBACTAM 4.5 GM in DEXTROSE 5% 100 ML IV SCH ×3 (00:54→17:16)
[2020-04-15] MEDS: VANCOMYCIN HCL 1,500 MG in SODIUM CHLORIDE 0.9% 500 ML IV SCH ×2 (04:04→12:17)
[2020-04-15 07:42] LABS: Hematocrit (blood only) 17.4 % (37-47); Hemoglobin 6.1 g/dL (12.0-16.0); Mean Corpuscular Hemoglobin 30.3 pg (25-34); Mean Corpuscular Hgb Conc 35.1 g/dL (32-36); Mean Corpuscular Volume 86.6 fL (80-100); Platelet Count 15 K/uL (130-400); RDW Coefficient of Variation 14.9 % (11.5-14.5); RDW Standard Deviation 48.1 fL (36.4-46.3); Red Blood Count 2.01 M/uL (4.2-5.4); White Blood Count 0.19 K/uL (4.8-10.8)
[2020-04-15 07:43] LABS: INR 1.3 (0.9-1.1); Partial Thromboplastin Ratio 1.2; Partial Thromboplastin Time 33.5 Seconds (21.0-31.0); Prothrombin Time 13.5 Seconds (9.0-12.0)
[2020-04-15 07:48] LABS: Alanine Aminotransferase 22 U/L (12-78); Albumin Level 2.9 gm/dl (3.4-5.0); Aspartate Aminotransferase 7 U/L (15-37); BUN Creatinine Ratio 8.2 (10-20); Blood Urea Nitrogen 4 mg/dl (7-18); Calcium 8.7 mg/dl (8.5-10.1); Carbon Dioxide 22 mmol/L (21-32); Chloride 110 mmol/L (98-107); Creatinine Clr Calc Pharmacy 222.5 ml/min; Est GFR (African American) > 150.0; Est GFR (Non-African American) 133.5; Glucose 120 mg/dl (70-99); Potassium 3.7 mmol/L (3.5-5.1); Sodium 140 mmol/L (136-145)
[2020-04-15 07:51] LABS: Albumin Globulin Ratio 0.9 (0.9-2); Alkaline Phosphatase 58 U/L (45-117); Globulin 3.3 gm/dl (2.5-4.0); Total Protein 6.2 gm/dl (6.4-8.2)
[2020-04-15] MEDS ORDERED: SODIUM CHLORIDE 0.9% 250 ML IV PRN (07:56)
[2020-04-15] MEDS: NSS + 20MEQ KCL 20 MEQ/1,000 ML BAG IV SCH ×2 (09:31→21:04)
[2020-04-15] MEDS: SACCHAROMYCES BOULARDII 250 MG CAP PO SCH ×2 (09:33→21:12)
[2020-04-15] MEDS: FAMOTIDINE 20 MG TAB PO SCH ×2 (09:33→21:12)
[2020-04-15] MEDS: FLUCONAZOLE 100 MG TAB PO SCH (09:33)
[2020-04-15] MEDS: MEDROXYPROGESTERONE ACETATE 10 MG TAB PO SCH ×2 (09:33→21:12)
[2020-04-15] MEDS: ACYCLOVIR 400 MG TAB PO SCH ×2 (09:33→21:12)
[2020-04-15] MEDS: POLYETHYLENE (MIRALAX) 17 GM PACK PO SCH ×2 (09:34→12:17)
--- NOTE | 2020-04-15 09:58 | XRay Report ---
KUB CLINICAL HISTORY: Constipation COMPARISON STUDY: None. FINDINGS: The bowel gas pattern is normal. Minimal stool within the colon is noted. There is no signi ficant stool within the rectum. IMPRESSION: 1. No evidence for a bowel obstruction. 2. Minimal stool within the colon and rectum. ACT 112: Negative or not required by law. Electronically signed by: Rylan Nazario M.D. 04/15/2020 9:56 AM
[2020-04-15] MEDS ORDERED: VANCOMYCIN TROUGH ONE (11:30)
--- NOTE | 2020-04-15 12:06 | Consultation Report ---
DATE OF CONSULTATION: 04/15/2020 HEMATOLOGY CONSULTATION REASON FOR CONSULTATION: Neutropenic fever. This pleasant 29-year-old female is recently diagnosed with CML in blast crisis. HISTORY OF PRESENT ILLNESS: Kirstin Arias is a pleasant 29-year-old female patient admitted to [facility] on 04/14/2020 with neutropenic fever. I actually met Kirstin back on 01/23 when she had presented with significant hematologic anomalies including 30% peripheral blasts. I had recommended transfer to [facility], which took place. According to Kirstin, the physicians at [facility] were perplexed and she actually ended up at the [facility] for formal diagnosis and treatment. She estimates she was hospitalized about a month and a half because of complications, particularly bowel issues. From what she is telling me, she was diagnosed with CML in blast crisis with multiple cytogenetic anomalies and subsequently received induction therapy (drugs unknown, I suspect cytarabine based) along with consolidation. She was also recently started on Sprycel, which is a novel TKI specifically for CML. Sprycel began on 03/06 as per Kirstin. I have asked her to compile all of her clinical notes for review and placement into her electronic medical record at [facility]. She came to the hospital because of temperature of 102.6. She also complains of intermittent crampy abdominal pain with alternating diarrhea and constipation. She was started on broad-spectrum antimicrobials, and I have been asked to assist in her care. PAST MEDICAL HISTORY: Again, significant for CML in blast crisis, neutropenic fever. CURRENT MEDICATIONS: Sprycel 100 mg p.o. daily, acyclovir 800 mg p.o. b.i.d., medroxyprogesterone 10 mg p.o. b.i.d. ALLERGIES: No known drug allergies. SOCIAL HISTORY: The patient is a nonsmoker, nondrinker, non-illicit drug user. She is and lives with her spouse. FAMILY HISTORY: Unobtainable. REVIEW OF SYSTEMS: CONSTITUTIONAL: As per HPI, most notably for fevers, chills, abdominal symptoms, crampy abdominal pain, diarrhea intermixed with constipation. Her appetite is robust. SKIN: No rashes or lesions. No history of dermatoses. HEENT: Negative for headaches, lightheadedness or dizziness. No visual or hearing deficits. No sinus symptoms, sore throat or dysphagia. LYMPHATICS: No history of lymphoproliferative disease. CARDIAC: No angina or palpitations. PULMONARY: No shortness of breath, dyspnea or orthopnea. No cough or hemoptysis. GASTROINTESTINAL: Positive for crampy abdominal pain, intermixed with diarrhea and constipation. She reports no hematochezia, melena or hayden rectal bleeding. GENITOURINARY: No hematuria, dysuria, or urinary incontinence. PSYCHIATRIC: Negative for anxiety, depression or psychoses. ENDOCRINE: Negative for diabetes or thyroid disease. NEUROLOGIC: Negative for seizure, stroke, or migraine headache. HEMATOLOGIC: Positive for pancytopenia attributable to chemotherapeutic effect. PHYSICAL EXAMINATION: GENERAL: Very pleasant 29-year-old female. Awake, alert and appropriate, in no acute distress. VITAL SIGNS: Temperature 36.5, pulse 100, respiratory rate 20, blood pressure 129/88. SKIN: Warm, dry, noncyanotic without petechia, rash or ecchymosis. HEENT: Head is atraumatic, normocephalic. Eyes: PERRLA, EOMI. Sclerae nonicteric. No conjunctival injection. Nares patent without rhinorrhea or discharge. Throat is clear. Tongue is midline. No buccal lesions or ulcerations. No evidence of thrush. NECK: Supple without JVD or thyromegaly. HEART: Regular rate and rhythm. No clicks, rubs, murmurs or gallops. LUNGS: Clear to auscultation bilaterally. ABDOMEN: Soft, nontender, nondistended, without palpable hepatosplenomegaly. EXTREMITIES: No calf tenderness or swelling. No clubbing, cyanosis or edema. Pulses and strength are equal in all 4 quadrants. NEUROLOGICAL: She is awake, alert and oriented x3. Cranial nerves II-XII are intact. LABORATORY DATA: WBC count 190, hemoglobin 6.1, platelet count 15,000. PT 13.5, PTT 33.5 seconds. Sodium 140, potassium 3.7, chloride 110, creatinine 0.48, BUN 4. Albumin 2.9, protein 6.2. IMPRESSION: 1. Neutropenic fever. 2. Pancytopenia attributable to chemotherapeutic effect. 3. 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 PLAN: It was my pleasure to visit with Kirstin and get reacquainted. I met her back on 01/23 when she had presented with 30% blasts in her peripheral blood. She was subsequently transferred to [facility] and then on to the [facility] where she is receiving consolidative chemotherapy in the hopes of remission. I do not have a compiled list of the drugs she has received, only know that she is presently on Sprycel. Kirstin does have documentation on her computer and I have asked her to copy all appropriate clinical notes for review. She did impart she has very complex karyotype, which in essence places her at very high risk. Ultimate goal is to achieve remission and proceed to allogeneic peripheral blood stem cell transplant. However, Kirstin only has half siblings, one is currently and the other incarcerated. Finding a matched unrelated donor may prove to be difficult in her case. Our therapuetic goal is to spears culture, treat identified pathogens and transfuse her blood products. Kirstin must receive irradiated and CMV negative blood products as she is a transplant candidate. Hemodynamically, she is currently stable and in surprisingly good spirits considering the prolonged hospital course to receive induction. She is due to return to [place] on 05/02 for followup. I will continue to follow her periodically during her hospitalization. Thank you very much for allowing me to participate in her care. JOY
--- NOTE | 2020-04-15 13:02 | Electrocardiogram Report ---
Test Reason : Blood Pressure : / mmHG Vent. Rate : 096 BPM Atrial Rate : 096 BPM P-R Int : 144 ms QRS Dur : 068 ms QT Int : 348 ms P-R-T Axes : 037 059 047 degrees QTc Int : 439 ms Normal sinus rhythm Normal ECG When compared with ECG of 14-APR-2020 01:35, No significant change was found Confirmed by Han Levine ([id number]) on 04/15/2020 1:01:57 PM Referred By: REFERRED SELF Confirmed By:Han Levine
[2020-04-15] MEDS ORDERED: POLYETHYLENE (MIRALAX) 17 GM PACK PO PRN (14:07)
--- NOTE | 2020-04-15 14:31 | Pharmacy Report ---
Pharmacy Abx Dose Short Note - Date of Service April 15, 2020 - Assessment & Plan Assessment * 29 year old F receiving EMPIRIC (48hrs - duration) VANCOMYCIN + ZOSYN for treatment of febrile neutropenia * Day # 2 or 2 of antimicrobial therapy * Patient remains pancytopenic total WBC 0.19, Tmax 39.2 last 24 hrs * No growth in cultures at this time, COVID19 negative, Influenza A/B negative (PCR), UA not suggestive of UTI however pyuria less likely to be seen w/ pancytopenia * Initial CXR read as "No evidence of focal pulmonary consolidation" * Patient does have an A-port * Renal fxn appears stable * PLEASE NOTE: THERAPY WILL D/C AFTER 48 HRS (BOTH ABX WILL D/C 04/16 AM) Plan Vancomycin * Trough level of 9.3 mcg/mL is subtherapeutic. Level was drawn at the appropriate time and prior doses hung on schedule. Will increase dose. * Change to 1750 mg IV every 8 hours * Goal trough level for febrile neutropenia : ~15 (15-20mcg/mL if bacteremia or pulmonary source) * Will repeat trough level in 24-48 hrs if therapy to continue Zosyn * eCrCl > 20, BMI > 35: continue 4.5gm ext-infusion Q 8 hrs Pharmacy will continue to follow and will adjust dose/frequency as necessary. Thank you.
[2020-04-15 17:26] LABS: Hematocrit (blood only) 21.1 % (37-47); Hemoglobin 7.5 g/dL (12.0-16.0)
--- NOTE | 2020-04-15 18:09 | Medical Student Progress Note ---
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 Neutropenic fever - temps have been downtrending, but she spikes fevers occasionally (24 hour temp range: 36.5-38.5 C) - likely due to infection of unknown etiology: -patient reports no urinary symptoms (rule out UTI), no respiratory symptoms -CXR showed cardiomegaly, no lung findings; patient reports no respiratory symptoms (rule out pneumonia) -blood cx shows no growth after 24 hours -urine cx grew >3 organisms, was not a clean catch -patient has DHILLON, but no nuchal rigidity; do not suspect meningitis at this time - continue IV Zosyn and vancomycin, appreciate pharmacy recs - continue PRN acetaminophen - continue home acyclovir Pancytopenia likely secondary to chemotherapy (dasatinib) - cell counts have decreased since yesterday - WBC 0.19, Hgb 6.1, Hct 17.4, Plts 15 this AM - Hgb 7.5 and Hct 21.2 post-transfusion - patient given 2 units of blood this AM due to Hgb < 7 - appreciate heme/onc consult - continue home dasatinib Bilateral lower abdominal pain and rectal pain - miralax administration led to a small, nonbloody bm - KUB showed no obstruction, with little stool in the bowel - pain is likely due to chemotherapy - improved after blood transfusion (8 -->6) - patient reports chronic constipation, but no blood in stool - continue home probiotic - acetaminophen PRN Nausea - continue prn Zofran Pericardial effusion - small effusion present on echo (04/14) - appreciate cardiology consult: - "small circumferential effusion noted on her echocardiogram, likely related to her leukemia" - repeat echo in 1 month in outpatient setting (2) Pancytopenia due to antineoplastic chemotherapy: (3) Bilateral lower abdominal pain: (4) Nausea: (5) Elevated troponin: (6) Pericardial effusion: (7) Hypomagnesemia: Admission and Anticipated Discharge Date Admission Date: April 14, 2020 Supervising Attestation I personally examined the patient and verified all maldonado points of history and exam, discussed case, and agree with decision making with Fernando Alcaraz MS3 feeling better overall. transfusion seems to have helped. belly still not great but definitely better vitals noted nad heent nc at mmm breathing unlabored no accessory muscles good effort skin no rashes no pallor or icterus neutropenic fever - continue empiric abx pending further culture growth and clinical follow up - but shwoing improvement antineoplastic induced pancytopenia - conitnue to follow, needed 2 units PRBC due to anemia otherwise as above, transfer to medical Subjective This morning, Kirstin reports that she continues to have nausea, anorexia, chills, night sweats, headache, abdominal pain, rectal pain, and BLE pain. She feels that it has all mostly stayed the same since her admission, except the abdominal/rectal pain. After seeing her in the afternoon, Kirstin reports that her abdominal pain has improved post-transfusion. Review of Systems Constitutional: + chills, + sweats, + body aches, + fatigue and + anorexia Gastrointestinal: + abdominal pain (02/05), + nausea and + constipation; no heartburn, no vomiting and no blood in stools rectal pain (02/05) Musculoskeletal: BLE "bone pain," worse in LLE Neurologic: + headache(s) (03/07) Physical Exam Constitutional: + obese and cooperative; no acute distress Respiratory: normal respiratory effort, lungs clear to auscultation Cardiovascular: Heart Sounds: normal S1 and normal S2; no gallop, no murmur and no cardiac rub Gastrointestinal (Abdomen): Inspection/Auscultation: normal bowel sounds Percussion/Palpation: + abdomen tender (diffusely) and abdomen soft; no guarding and no hepatosplenomegaly (difficult to ascertain due to habitus) Skin: + lesion (ulcerated, on her groin) Trauma: no laceration and no contusion Results & Data ([facility]) Vital Signs (Past 12 Hours) Vital Signs Temp Pulse Pulse Resp BP BP Pulse Ox 04/15/20 15:40 37.4 C 100 H 18 125/70 94 04/15/20 15:03 37.5 C 99 H 16 99 04/15/20 15:02 37.5 C 103 H 16 111/60 99 04/15/20 14:03 37.6 C H 98 H 16 115/64 100 04/15/20 13:33 37.5 C 99 H 16 110/60 100 04/15/20 13:18 37.5 C 98 H 16 115/64 100 04/15/20 12:53 37.7 C H 101 H 16 118/76 97 04/15/20 12:34 37.7 C H 95 H 16 113/65 96 04/15/20 12:00 04/15/20 11:31 37.6 C H 94 H 16 122/62 100 04/15/20 11:01 37.5 C 96 H 16 127/64 99 04/15/20 10:46 37.6 C H 95 H 16 126/56 L 100 04/15/20 10:21 37.5 C 99 H 16 126/78 100 04/15/20 08:00 04/15/20 07:56 36.5 C 100 H 20 129/88 99 Pulse Ox 04/15/20 15:40 04/15/20 15:03 04/15/20 15:02 04/15/20 14:03 04/15/20 13:33 04/15/20 13:18 04/15/20 12:53 04/15/20 12:34 04/15/20 12:00 99 04/15/20 11:31 04/15/20 11:01 04/15/20 10:46 04/15/20 10:21 04/15/20 08:00 100 04/15/20 07:56
--- NOTE | 2020-04-15 19:21 | Billing Data ---
Date of Service April 15, 2020 Coding Level of Care Code 91656 Subseq Hosp Care Lvl 3
[2020-04-15] MEDS: VANCOMYCIN HCL 1,750 MG in SODIUM CHLORIDE 0.9% 500 ML IV SCH (21:04)
[2020-04-15] MEDS: ONDANSETRON INJ 2 MG/ML 2 ML VIAL IV PRN (21:05)
[2020-04-15] MEDS ORDERED: HYDROmorphone INJ 0.5 MG/0.5 ML SYR IV STA (22:04)
[2020-04-15] MEDS ORDERED: DASATINIB 100 MG PO SCH (22:30)
[2020-04-15] MEDS ORDERED: DASATINIB PO SCH (22:30)
[2020-04-16] MEDS: PIPERACILLIN/TAZOBACTAM 4.5 GM in DEXTROSE 5% 100 ML IV SCH ×3 (01:12→16:26)
[2020-04-16] MEDS ORDERED: HYDROmorphone INJ 0.5 MG/0.5 ML SYR IV STA (02:22)
[2020-04-16] MEDS ORDERED: HYDROmorphone INJ 0.5 MG/0.5 ML SYR ONE (02:25)
[2020-04-16] MEDS: VANCOMYCIN HCL 1,750 MG in SODIUM CHLORIDE 0.9% 500 ML IV SCH ×3 (04:28→20:53)
[2020-04-16 06:44] LABS: Platelet Count 26 K/uL (130-400)
[2020-04-16 06:45] LABS: INR 1.2 (0.9-1.1); Partial Thromboplastin Ratio 1.3; Partial Thromboplastin Time 35.7 Seconds (21.0-31.0)
[2020-04-16 06:47] LABS: Hematocrit (blood only) 20.9 % (37-47); Hemoglobin 7.4 g/dL (12.0-16.0); Mean Corpuscular Hemoglobin 30.5 pg (25-34); Mean Corpuscular Hgb Conc 35.4 g/dL (32-36); Mean Platelet Volume 9.8 fL (7.4-10.4); RDW Coefficient of Variation 15.1 % (11.5-14.5); RDW Standard Deviation 48.1 fL (36.4-46.3); Red Blood Count 2.43 M/uL (4.2-5.4); White Blood Count 0.75 K/uL (4.8-10.8)
[2020-04-16 06:56] LABS: Alanine Aminotransferase 18 U/L (12-78); Albumin Level 2.7 gm/dl (3.4-5.0); Aspartate Aminotransferase 4 U/L (15-37); BUN Creatinine Ratio 9.2 (10-20); Blood Urea Nitrogen 4 mg/dl (7-18); Calcium 8.6 mg/dl (8.5-10.1); Carbon Dioxide 23 mmol/L (21-32); Chloride 110 mmol/L (98-107); Creatinine Clr Calc Pharmacy 233.3 ml/min; Est GFR (African American) > 150.0; Est GFR (Non-African American) 135.4; Glucose 101 mg/dl (70-99); Magnesium 1.9 mg/dl (1.8-2.4); Potassium 3.6 mmol/L (3.5-5.1); Sodium 139 mmol/L (136-145)
[2020-04-16 06:58] LABS: Albumin Globulin Ratio 0.7 (0.9-2); Alkaline Phosphatase 60 U/L (45-117); Bilirubin,Total 1.3 mg/dl (0.2-1); Globulin 3.7 gm/dl (2.5-4.0); Total Protein 6.4 gm/dl (6.4-8.2)
[2020-04-16 07:01] LABS: Eosinophils # (auto) 0.02 K/uL (0-0.5); Eosinophils % (auto) 2.7 %; Lymphocytes # (auto) 0.55 K/uL (1.2-3.4); Lymphocytes % (auto) 73.3 %; Monocytes # (auto) 0.18 K/uL (0.11-0.59); Platelet Estimate SIGNIFIC DECREASED (Normal)
[2020-04-16] MEDS: NSS + 20MEQ KCL 20 MEQ/1,000 ML BAG IV SCH ×2 (08:41→20:41)
[2020-04-16] MEDS: MEDROXYPROGESTERONE ACETATE 10 MG TAB PO SCH ×2 (10:37→20:58)
[2020-04-16] MEDS: ACYCLOVIR 400 MG TAB PO SCH ×2 (10:37→20:58)
[2020-04-16] MEDS: FAMOTIDINE 20 MG TAB PO SCH ×2 (10:37→20:58)
[2020-04-16] MEDS: FLUCONAZOLE 100 MG TAB PO SCH (10:37)
[2020-04-16] MEDS: SACCHAROMYCES BOULARDII 250 MG CAP PO SCH ×2 (10:38→20:58)
[2020-04-16] MEDS ORDERED: VANCOMYCIN TROUGH ONE (11:30)
[2020-04-16] MEDS: HYDROmorphone INJ 0.5 MG/0.5 ML SYR IV PRN ×3 (12:04→20:45)
--- NOTE | 2020-04-16 12:32 | Electrocardiogram Report ---
Test Reason : Blood Pressure : / mmHG Vent. Rate : 101 BPM Atrial Rate : 101 BPM P-R Int : 142 ms QRS Dur : 068 ms QT Int : 336 ms P-R-T Axes : 047 054 038 degrees QTc Int : 435 ms Sinus tachycardia Otherwise normal ECG When compared with ECG of 15-APR-2020 06:44, No significant change was found Confirmed by Han Levine ([id number]) on 04/16/2020 12:32:01 PM Referred By: REFERRED SELF Confirmed By:Han Levine
[2020-04-16] MEDS: DASATINIB 100 MG PO SCH (12:44)
[2020-04-16] MEDS: DASATINIB PO SCH (13:23)
--- NOTE | 2020-04-16 13:39 | Medical Student Progress Note ---
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 Neutropenic fever - temps have all been under 38C, however, in the past 24 hrs, her temp has ranged from 37.1 to 37.8 (high end of normal) - persistent severe (8/10) abdominal/rectal pain prompted a CT abdomen/pelvis which showed: - "mild rectal wall thickening," consistent with a mild proctitis, which presents an infectious etiology for her fevers; continue IV zosyn and vanco - blood cx shows no growth after 48 hours - continue PRN acetaminophen - continue home acyclovir Pancytopenia likely secondary to chemotherapy (dasatinib) - cell counts have increased since yesterday - WBC 0.75, Hgb 7.4, Hct 20.9, Plts 26 - patient given 1 bag of platelets on 04/14 and 2 units of blood on 04/15 due to Hgb < 7 - appreciate heme/onc consult - continue home dasatinib Lower abdominal pain and rectal pain likely secondary to mild proctitis - patient continues to have persistent 8/10 abdominal and rectal pain - CT abdomen/pelvis with oral and IV contrast showed: - "mild rectal wall thickening. This could be due to the patient's diffuse edematous state or represent a mild proctitis" - "No evidence for bowel obstruction" - "Mild to moderate body wall edema" - "Hepatosplenomegaly" (consistent with her CML diagnosis) - patient's pain is likely due to the proctitis, continue the IV zosyn and vanco - KUB (04/15) showed no obstruction, with little stool in the bowel - patient reports chronic constipation, but no blood in stool - continue home probiotic - acetaminophen PRN Nausea - continue prn Zofran Pericardial effusion - patient has no cardiac symptoms - small effusion present on echo (04/14) and CT Abdomen/Pelvis (04/16) - appreciate cardiology consult: - "small circumferential effusion noted on her echocardiogram, likely related to her leukemia" - repeat echo in 1 month in outpatient setting (2) Pancytopenia due to antineoplastic chemotherapy: (3) Bilateral lower abdominal pain: (4) Nausea: (5) Elevated troponin: (6) Pericardial effusion: (7) Hypomagnesemia: Admission and Anticipated Discharge Date Admission Date: April 14, 2020 Supervising Attestation I personally examined the patient and verified all maldonado points of history and exam, discussed case, and agree with decision making with Fernando GARDINER temps still present - albeit low grade. abdominal pain was worse. CT done - reviewed with pt. vitals noted nad heent nc at mmm breathing unlabored no accessory muscles good effort skin no rashes no pallor or icterus. lower abdomen soft but focally tender suprapubic no guarding no rebound neutropenic fever - continue empiric abx ongoing - although w CT findings fairly suspicious that nonspecific proctitis was culprit - certainly fits her sx. a nticipate slow improvement given her markedly low WBC and 0 ANC. would like to see improvement in sx and ongoing improvement in fever curve before feelign she would be safe for discharge. antineoplastic induced pancytopenia - continue to follow, needed 2 units PRBC due to anemia did look brighter on revisit this afternoon Subjective This morning, Kirstin reports 8/10 abdominal and rectal pain. She also reports anorexia; she says she's not eating much more than just some fruit and cottage cheese. She is not experiencing as much nausea or headache today. She continues to have the chronic leg pain. She has no urinary symptoms. She had one small bowel movement, with some rectal pain but no bleeding. Review of Systems Constitutional: + body aches, + fatigue and + anorexia Gastrointestinal: + abdominal pain (8/10) and + nausea; no heartburn, no vomiting and no blood in stools rectal pain (8/10) Musculoskeletal: BLE "bone pain," worse in LLE Physical Exam Constitutional: + obese and cooperative; no acute distress Respiratory: normal respiratory effort Gastrointestinal (Abdomen): Percussion/Palpation: + abdomen tender (diffusely, but with moderate to severe suprapubic tenderness) and abdomen soft; no guarding and no hepatosplenomegaly (difficult to ascertain due to habitus) Skin: + lesion (ulcerated, on her groin) Results & Data ([facility]) Vital Signs (Past 12 Hours) Vital Signs Temp Pulse Resp BP Pulse Ox 04/16/20 07:34 37.8 C H 106 H 16 120/75 97
--- NOTE | 2020-04-16 13:54 | Pharmacy Report ---
Pharmacy Abx Dose Short Note - Date of Service April 16, 2020 - Assessment & Plan Assessment 29 year old F receiving vancomycin and Zosyn for treatment of neutropenic fever Day # 3 of antimicrobial therapy. Plan Vancomycin * Trough level of 12.5 mcg/mL is supratherapeutic * Continue dose of 1750 mg IV every 8 hours as expect patient's trough to increase due to body habitus and accumulation. * Goal trough level for neutropenic fever without source : 15 to 20 mcg/mL * Additional troughs not ordered at this time as unsure duration of therapy. Pharmacy will continue to follow and will adjust dose/frequency as necessary. Thank you.
[2020-04-16] MEDS ORDERED: IOVERSOL 100ml IV ONE (14:57)
--- NOTE | 2020-04-16 15:24 | CT Scan Report ---
ABDOMEN AND PELVIS CT WITH IV AND ORAL CONTRAST CT DOSE: 1684.41 mGy.cm HISTORY: Generalized abdominal pain TECHNIQUE: Multiaxial CT images of the abdomen and pelvis were performed following the use of intrave nous and oral contrast. A dose lowering technique was utilized adhering to the principles of ALARA. COMPARISON STUDY: None. FINDINGS: Mild interlobular septal thickening seen within the left lung base and a few small patchy p eripheral densities. This favors mild congestive change. There is a moderate to large pericardial eff usion with a maximal thickness posteriorly of 2.3 cm. The anterior thickness of the pericardial effus ion measures up to 5 mm. No pneumoperitoneum. No pneumatosis. Bilateral sacroiliac joint sclerosis. M ild to moderate body wall edema. The pancreas, gallbladder, adrenal glands, and kidneys are unremarka ble. Hepatosplenomegaly. The spleen measures 16 cm in length. No retroperitoneal lymphadenopathy. Nor mal caliber abdominal aorta. The bladder is distended. The uterus and bilateral adnexa within normal limits. Mild presacral edema is noted. Suspect mild rectal wall thickening. No evidence for bowel obs truction. The appendix is not identified and reportedly surgically absent. IMPRESSION: 1. Moderate to large pericardial effusion as described above. 2. Suspect mild rectal wall thickening. This could be due to the patient's diffuse edematous state or represent a mild proctitis. 3. No evidence for bowel obstruction. 4. Mild to moderate body wall edema. 5. Mild congestive change seen at the left lung base. 6. Hepatosplenomegaly. ACT 112: Negative or not required by law. Electronically signed by: Elías Damon M.D. 04/16/2020 3:23 PM
[2020-04-16] MEDS ORDERED: DASATINIB 100 MG PO SCH (18:00)
[2020-04-16] MEDS ORDERED: DASATINIB PO SCH (18:00)
--- NOTE | 2020-04-16 19:35 | Billing Data ---
Date of Service April 16, 2020 Coding Level of Care Code 05307 Subseq Hosp Care Lvl 3
[2020-04-17] MEDS: PIPERACILLIN/TAZOBACTAM 4.5 GM in DEXTROSE 5% 100 ML IV SCH ×2 (01:11→09:31)
[2020-04-17] MEDS: HYDROmorphone INJ 0.5 MG/0.5 ML SYR IV PRN ×4 (02:29→15:47)
[2020-04-17] MEDS: VANCOMYCIN HCL 1,750 MG in SODIUM CHLORIDE 0.9% 500 ML IV SCH ×2 (04:01→12:40)
[2020-04-17 06:36] LABS: INR 1.3 (0.9-1.1); Partial Thromboplastin Ratio 1.2; Partial Thromboplastin Time 33.4 Seconds (21.0-31.0); Prothrombin Time 13.3 Seconds (9.0-12.0)
[2020-04-17 06:58] LABS: Alanine Aminotransferase 20 U/L (12-78); Albumin Level 2.7 gm/dl (3.4-5.0); Aspartate Aminotransferase 6 U/L (15-37); BUN Creatinine Ratio 5.6 (10-20); Blood Urea Nitrogen 3 mg/dl (7-18); Carbon Dioxide 22 mmol/L (21-32); Chloride 111 mmol/L (98-107); Creatinine Clr Calc Pharmacy 216.8 ml/min; Est GFR (African American) > 150.0; Est GFR (Non-African American) 131.7; Glucose 88 mg/dl (70-99); Magnesium 1.8 mg/dl (1.8-2.4); Potassium 3.3 mmol/L (3.5-5.1); Sodium 139 mmol/L (136-145)
[2020-04-17 07:00] LABS: Albumin Globulin Ratio 0.7 (0.9-2); Alkaline Phosphatase 60 U/L (45-117); Bilirubin,Total 0.8 mg/dl (0.2-1); Globulin 3.9 gm/dl (2.5-4.0); Total Protein 6.6 gm/dl (6.4-8.2)
[2020-04-17 07:23] LABS: Hematocrit (blood only) 20.4 % (37-47); Hemoglobin 7.1 g/dL (12.0-16.0); Mean Corpuscular Hemoglobin 30.6 pg (25-34); Mean Corpuscular Hgb Conc 34.8 g/dL (32-36); Mean Corpuscular Volume 87.9 fL (80-100); Mean Platelet Volume 10.2 fL (7.4-10.4); Platelet Count 75 K/uL (130-400); Platelet Estimate Decreased (Normal); RBC Morphology Unremarkable; RDW Coefficient of Variation 15.6 % (11.5-14.5); RDW Standard Deviation 50.5 fL (36.4-46.3); Red Blood Count 2.32 M/uL (4.2-5.4); White Blood Count 1.18 K/uL (4.8-10.8)
[2020-04-17 07:26] LABS: ALC (manual) 0.99 K/uL (1.2-3.4); ANC (manual) 0.07 K/uL (1.4-6.5); Eosinophils # (manual) 0.06 K/uL (0-0.5); Eosinophils % (manual) 5.2 %; Lymphocytes # (manual) 0.99 K/uL (1.2-3.4); Lymphocytes % (manual) 83.5 %; Monocytes # (manual) 0.06 K/uL (0.11-0.59); Monocytes % (manual) 5.2 %; Neutrophils # (manual) 0.07 K/uL (1.4-6.5); Neutrophils % (manual) 6.1 %
[2020-04-17] MEDS ORDERED: POTASSIUM CHLORIDE 20 MEQ TABCR PO ONE (07:30)
[2020-04-17] MEDS: NSS + 20MEQ KCL 20 MEQ/1,000 ML BAG IV SCH ×2 (07:39→21:03)
[2020-04-17] MEDS: FAMOTIDINE 20 MG TAB PO SCH ×2 (09:32→21:16)
[2020-04-17] MEDS: DASATINIB 100 MG PO SCH (09:32)
[2020-04-17] MEDS: MEDROXYPROGESTERONE ACETATE 10 MG TAB PO SCH ×2 (09:32→21:16)
[2020-04-17] MEDS: DASATINIB PO SCH (09:33)
[2020-04-17] MEDS: FLUCONAZOLE 100 MG TAB PO SCH (09:33)
[2020-04-17] MEDS: SACCHAROMYCES BOULARDII 250 MG CAP PO SCH ×2 (09:33→21:15)
[2020-04-17] MEDS: ACYCLOVIR 400 MG TAB PO SCH ×2 (09:34→21:16)
[2020-04-17 12:04] LABS: Hematocrit (blood only) 21.1 % (37-47); Hemoglobin 7.4 g/dL (12.0-16.0)
[2020-04-17] MEDS ORDERED: MELATONIN 3 MG TAB PO PRN (15:55)
--- NOTE | 2020-04-17 16:07 | Medical Student Progress Note ---
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 Neutropenic fever - afebrile for 24 hours - persistent severe abdominal/rectal pain prompted a CT abdomen/pelvis (04/16/20) which showed: - "mild rectal wall thickening," consistent with a mild proctitis, which presents a possible infectious etiology for her fevers - switch from IV Zosyn and Vancomycin to PO Augmentin - blood cx shows no growth after 48 hours - continue home acyclovir Pancytopenia likely secondary to chemotherapy (dasatinib) - cell counts have increased since yesterday - WBC 1.18, Hgb 7.4, Hct 21.1, Plts 75 - patient given 1 bag of platelets on 04/14 and 2 units of blood on 04/15 due to Hgb < 7 - appreciate heme/onc consult - continue home dasatinib Lower abdominal pain and rectal pain likely secondary to mild proctitis - patient reports good pain control with Dilaudid q4h - CT abdomen/pelvis with oral and IV contrast (04/16/20) showed: - "mild rectal wall thickening. This could be due to the patient's diffuse edematous state or represent a mild proctitis" - "No evidence for bowel obstruction" - "Mild to moderate body wall edema" - "Hepatosplenomegaly" (consistent with her CML diagnosis) - patient's pain is likely due to the proctitis, continue abx - KUB (04/15) showed no obstruction, with little stool in the bowel - continue home probiotic - transition from IV to PO Dilaudid PRN Q4H Low Albumin - Albumin 2.7 on 04/16 and 04/17 - [place] calculation showed that pt needs ~2400 calories/day to maintain her current weight - not eating enough in hospital due to anorexia secondary to chemotherapy (likely not eating enough at home for same reason) - counseled patient on nutrition and caloric goals Nausea - continue prn Zofran Pericardial effusion - patient has no cardiac symptoms - small effusion present on echo (04/14) and CT Abdomen/Pelvis (04/16) - appreciate cardiology consult: - "small circumferential effusion noted on her echocardiogram, likely related to her leukemia" - repeat echo in 1 month in outpatient setting FEN/GI: NSS/Regular diet DVT Prophylaxis: Heparin (2) Pancytopenia due to antineoplastic chemotherapy: (3) Bilateral lower abdominal pain: (4) Nausea: (5) Pericardial effusion: Admission and Anticipated Discharge Date Admission Date: April 14, 2020 Supervising Attestation I personally examined the patient and verified all maldonado points of history and exam, discussed case, and agree with decision making with Frenando Alcaraz MS3 feeling better belly still hurts but meds help until they wear off. discussed nutrition. vitals noted nad heent nc at mmm breathing unlabored no accessory muscles good effort skin no rashes no pallor or icterus. neutropenic fever - seems most likely proctitis as source given her sx. cautiously de-escalate abx while still under watch. follow closely moderate protein malnutrition - discussed nutrition goals - she's trying, but with more concrete calorie goals hopefully she'll be able to maintain or improve status some antineoplastic induced pancytopenia - continue to follow, needed 2 units PRBC due to anemia, now showing improvement Subjective This morning, Kirstin reports that the Dilaudid is helping with her abdominal/rectal pain. She says it's a 3/10 when she has the Dilaudid, and goes back up to about 7/10 when it wears off. The rectal pain is worst when she has a bowel movement. She does say she saw a few spots of blood when wiping, but none in the bowl or in the stool itself. Her appetite has improved, she feels like she is able to eat more than yesterday. She's still not eating a lot, but more than the fruit and cottage cheese she was eating yesterday. Her chills, sweats, nausea, and headache have all resolved. Review of Systems Constitutional: + fatigue and + anorexia Gastrointestinal: + abdominal pain (3/10); no heartburn, no nausea, no vomiting and no blood in stools rectal pain, worse when having a bowel movement spots of blood when wiping after bowel movement Musculoskeletal: BLE "bone pain," worse in LLE Physical Exam Constitutional: + obese and cooperative; no acute distress Respiratory: normal respiratory effort Gastrointestinal (Abdomen): Inspection/Auscultation: normal bowel sounds Percussion/Palpation: + abdomen tender (diffusely, but with moderate to severe suprapubic tenderness) and abdomen soft; no guarding and no hepatosplenomegaly (difficult to ascertain due to habitus) Skin: + lesion (ulcerated, on her groin) Results & Data ([facility]) Vital Signs (Past 12 Hours) Vital Signs Temp Pulse Resp BP Pulse Ox 04/17/20 15:19 37.2 C 94 H 18 144/82 H 97 04/17/20 07:21 37.2 C 87 18 122/77 96 Resident Activity Tracking Resident Involvement: Resident Care Provided Care Provided: Adult Hospital Medicine
[2020-04-17] MEDS: AMOXICILLIN/CLAVULANATE 875 MG TAB PO SCH (16:21)
[2020-04-17] MEDS: ONDANSETRON INJ 2 MG/ML 2 ML VIAL IV PRN (17:18)
--- NOTE | 2020-04-17 18:00 | Billing Data ---
Date of Service April 17, 2020 Coding Level of Care Code 44080 Subseq Hosp Care Lvl 3
[2020-04-17] MEDS: HYDROmorphone HCL 2 MG TAB PO PRN (21:04)
[2020-04-18] MEDS: HYDROmorphone INJ 0.5 MG/0.5 ML SYR IV PRN (01:40)
[2020-04-18] MEDS: HYDROmorphone HCL 2 MG TAB PO PRN ×4 (06:18→21:56)
[2020-04-18 06:21] LABS: Hematocrit (blood only) 20.8 % (37-47); Hemoglobin 7.2 g/dL (12.0-16.0); Mean Corpuscular Hemoglobin 30.8 pg (25-34); Mean Corpuscular Hgb Conc 34.6 g/dL (32-36); Mean Corpuscular Volume 88.9 fL (80-100); Mean Platelet Volume 8.9 fL (7.4-10.4); Nucleated RBC # (auto) 0.05 K/uL (0-0); Nucleated RBC % (auto) 2.4 %; Platelet Count 127 K/uL (130-400); RDW Coefficient of Variation 15.9 % (11.5-14.5); RDW Standard Deviation 51.4 fL (36.4-46.3); Red Blood Count 2.34 M/uL (4.2-5.4); White Blood Count 2.04 K/uL (4.8-10.8)
[2020-04-18 06:33] LABS: INR 1.2 (0.9-1.1); Prothrombin Time 12.9 Seconds (9.0-12.0)
[2020-04-18 06:43] LABS: BUN Creatinine Ratio 4.2 (10-20); Calcium 9.1 mg/dl (8.5-10.1); Creatinine Clr Calc Pharmacy 157.7 ml/min; Dohle Bodies 1+; Eosinophils # (auto) 0.02 K/uL (0-0.5); Est GFR (African American) 137.3; Est GFR (Non-African American) 118.5; Immature Granulocytes # (auto) 0.04 K/uL (0.00-0.02); Lymphocytes # (auto) 0.45 K/uL (1.2-3.4); Lymphocytes % (auto) 22.1 %; Monocytes # (auto) 1.12 K/uL (0.11-0.59); Monocytes % (auto) 54.9 %; Neutrophils # (auto) 0.41 K/uL (1.4-6.5); Potassium 3.4 mmol/L (3.5-5.1); Tear Drop Cells 1+
[2020-04-18] MEDS ORDERED: POTASSIUM CHLORIDE 20 MEQ TABCR PO STA (07:05)
[2020-04-18] MEDS: AMOXICILLIN/CLAVULANATE 875 MG TAB PO SCH ×2 (08:02→18:22)
[2020-04-18] MEDS: DASATINIB 100 MG PO SCH (09:21)
[2020-04-18] MEDS: MEDROXYPROGESTERONE ACETATE 10 MG TAB PO SCH ×2 (09:21→21:57)
[2020-04-18] MEDS: ACYCLOVIR 400 MG TAB PO SCH ×2 (09:22→21:57)
[2020-04-18] MEDS: DASATINIB PO SCH (09:23)
[2020-04-18] MEDS: FLUCONAZOLE 100 MG TAB PO SCH (09:23)
[2020-04-18] MEDS: FAMOTIDINE 20 MG TAB PO SCH ×2 (09:29→21:57)
[2020-04-18] MEDS: NSS + 20MEQ KCL 20 MEQ/1,000 ML BAG IV SCH ×2 (09:48→22:50)
--- NOTE | 2020-04-18 13:43 | Medical Student Progress Note ---
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 However, she did spike a fever last night. Neutropenic fever - had one fever last night (38.2 C) - continue to monitor temperature, consider discharge once she has been afebrile for 24 hours - persistent severe abdominal/rectal pain prompted a CT abdomen/pelvis (04/16/20) which showed: - "mild rectal wall thickening," consistent with a mild proctitis, which p resents a possible infectious etiology for her fevers - blood cx ordered to r/o bacteremia - continue PO Augmentin - continue home acyclovir Pancytopenia likely secondary to chemotherapy (dasatinib) - cell counts have increased since yesterday - WBC 2.04, Hgb 7.2, Hct 20.8, Plts 127 - patient given 1 bag of platelets on 04/14 and 2 units of blood on 04/15 due to Hgb < 7 - appreciate heme/onc consult - continue home dasatinib Lower abdominal pain and rectal pain likely secondary to mild proctitis - patient reports good pain control with Dilaudid q4h - CT abdomen/pelvis with oral and IV contrast (04/16/20) showed: - "mild rectal wall thickening. This could be due to the patient's diffuse edematous state or represent a mild proctitis" - "No evidence for bowel obstruction" - "Mild to moderate body wall edema" - "Hepatosplenomegaly" (consistent with her CML diagnosis) - patient's pain is likely due to the proctitis, continue abx - KUB (04/15) showed no obstruction, with little stool in the bowel - continue home probiotic - transitioned from IV to PO Dilaudid q4h Low Albumin - Albumin 2.7 on 04/16 and 04/17 - [place] calculation showed that pt needs ~2400 calories/day to maintain her current weight - not eating enough in hospital due to anorexia secondary to chemotherapy (likely not eating enough at home for same reason) - counseled patient on nutrition and caloric goals Nausea - continue prn Zofran Pericardial effusion - patient has no cardiac symptoms - small effusion present on echo (04/14) and CT Abdomen/Pelvis (04/16) - appreciate cardiology consult: - "small circumferential effusion noted on her echocardiogram, likely related to her leukemia" - repeat echo in 1 month in outpatient setting FEN/GI: NSS/Regular diet DVT Prophylaxis: Heparin (2) Pancytopenia due to antineoplastic chemotherapy: (3) Bilateral lower abdominal pain: (4) Nausea: (5) Pericardial effusion: Admission and Anticipated Discharge Date Admission Date: April 14, 2020 Supervising Attestation I personally examined the patient and verified all maldonado points of history and exam, discussed case, and agree with decision making with Fernando Alcaraz MS3 feeling significantly better - belly pain way better, overall improved. still a fever though. vitals noted nad heent nc at mmm breathing unlabored no accessory muscles good effort skin no rashes no pallor or icterus. abd soft nd nt no masses no guarding no rebound neutropenic fever - seems most likely proctitis as source given her sx. de- escalated abx yesterday, still had temp today but otherwise looks so much better, examining well, counts improving - so will maintain same regimen for now and follow. moderate protein malnutrition - discussed nutrition goals - and outlined antineoplastic induced pancytopenia - continue to follow, needed 2 units PRBC due to anemia, now showing good improvement Subjective This morning, Kirstin reports feeling "much better." She did not have any rectal pain with bowel movements this morning. She had two normal bowel movements that were soft and had no bleeding. On the Dilaudid, her pain is about 4/10, and when it wears off, it's a 6/10. She has no chills or sweats. Review of Systems Constitutional: no chills and no sweats Gastrointestinal: + abdominal pain (4/10); no heartburn, no nausea, no vomiting and no blood in stools Physical Exam Constitutional: + obese and cooperative; no acute distress Respiratory: normal respiratory effort Gastrointestinal (Abdomen): Inspection/Auscultation: normal bowel sounds Percussion/Palpation: abdomen soft; abdomen nontender, no guarding and no hepatosplenomegaly (difficult to ascertain due to habitus) Results & Data ([facility]) Vital Signs (Past 12 Hours) Vital Signs Temp Pulse Resp BP Pulse Ox 04/18/20 07:01 37.4 C 82 20 138/78 96
--- NOTE | 2020-04-18 19:56 | Billing Data ---
Date of Service April 18, 2020 Coding Level of Care Code 29097 Subseq Hosp Care Lvl 3
[2020-04-19] MEDS: HYDROmorphone INJ 0.5 MG/0.5 ML SYR IV PRN (03:05)
[2020-04-19 06:21] LABS: Hematocrit (blood only) 21.4 % (37-47); Hemoglobin 7.2 g/dL (12.0-16.0); Mean Corpuscular Hemoglobin 30.5 pg (25-34); Mean Corpuscular Hgb Conc 33.6 g/dL (32-36); Mean Corpuscular Volume 90.7 fL (80-100); Mean Platelet Volume 8.7 fL (7.4-10.4); Nucleated RBC # (auto) 0.02 K/uL (0-0); Nucleated RBC % (auto) 0.7 %; Platelet Count 174 K/uL (130-400); RDW Coefficient of Variation 16.2 % (11.5-14.5); RDW Standard Deviation 53.5 fL (36.4-46.3); Red Blood Count 2.36 M/uL (4.2-5.4); White Blood Count 3.08 K/uL (4.8-10.8)
[2020-04-19 06:42] LABS: Eosinophils # (auto) 0.02 K/uL (0-0.5); Eosinophils % (auto) 0.6 %; Hypogranular Neutrophils 1+; Immature Granulocytes # (auto) 0.19 K/uL (0.00-0.02); Immature Granulocytes % (auto) 6.2 %; Lymphocytes # (auto) 0.55 K/uL (1.2-3.4); Lymphocytes % (auto) 17.9 %; Monocytes # (auto) 1.15 K/uL (0.11-0.59); Monocytes % (auto) 37.3 %; Neutrophils # (auto) 1.17 K/uL (1.4-6.5)
[2020-04-19 06:54] LABS: BUN Creatinine Ratio 4.7 (10-20); Calcium 8.6 mg/dl (8.5-10.1); Creatinine Clr Calc Pharmacy 165.6 ml/min; Est GFR (African American) 139.3; Est GFR (Non-African American) 120.2; Magnesium 1.9 mg/dl (1.8-2.4); Potassium 3.5 mmol/L (3.5-5.1)
[2020-04-19] MEDS: AMOXICILLIN/CLAVULANATE 875 MG TAB PO SCH (07:37)
[2020-04-19] MEDS: ACYCLOVIR 400 MG TAB PO SCH (07:37)
[2020-04-19] MEDS: FLUCONAZOLE 100 MG TAB PO SCH (07:37)
[2020-04-19] MEDS: MEDROXYPROGESTERONE ACETATE 10 MG TAB PO SCH (07:37)
[2020-04-19] MEDS: FAMOTIDINE 20 MG TAB PO SCH (07:37)
[2020-04-19] MEDS: DASATINIB 100 MG PO SCH (07:38)
[2020-04-19] MEDS: DASATINIB PO SCH (07:43)
--- NOTE | 2020-04-19 10:00 | Hospitalist Progress Note ---
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 She has been afebrile for about 36 hours, her pancytopenia continues to improve, and her abdominal/rectal pain is better controlled with dilaudid. Neutropenic fever -afebrile for 36 hours -persistent severe abdominal/rectal pain prompted a CT abdomen/pelvis (04/16/20) which showed: "mild rectal wall thickening," consistent with a mild proctitis, which presents a possible infectious etiology for her fevers -transitioned yesterday from IV to PO augmentin; continue for 12 more days at home (875mg bid) -blood cultures show no growth after 48 hours -continue home acyclovir Pancytopenia: likely 2/2 to chemotherapy (dasatinib) -cell counts have increased since yesterday -WBC up from 1.18 to 3.08 -Hgb steady at 7.2 -platelets up from 127 to 174 -patient given 1 bag of platelets on 04/14 and 2 units of blood on 04/15 due to Hgb < 7 -appreciate heme/onc consult -continue home dasatinib Lower abdominal pain and rectal pain likely 2/2 to mild proctitis -patient reports good pain control with Dilaudid q4h -CT abdomen/pelvis with oral and IV contrast (04/16/20) showed: -"mild rectal wall thickening. This could be due to the patient's diffuse edematous state or represent a mild proctitis" -"No evidence for bowel obstruction" -"Mild to moderate body wall edema" -"Hepatosplenomegaly" (consistent with her CML diagnosis) -patient's pain is likely due to the proctitis, continue PO augmentin -KUB (04/15) showed no obstruction, with little stool in the bowel -continue home probiotic -transitioned yesterday from IV to PO dilaudid PRN q4h Hypoalbuminemia -Albumin 2.7 on 04/16 and 04/17 -Lewis-[place] calculation showed that pt needs ~2400 calories/day to maintain her current weight -not eating enough in hospital due to anorexia secondary to chemotherapy (likely not eating enough at home for same reason) -counseled patient on nutrition and caloric goals Nausea -continue prn Zofran Pericardial effusion -patient continues to have no cardiac symptoms -small effusion present on echo (04/14) and CT Abdomen/Pelvis (04/16) -cardiology consult: -"small circumferential effusion noted on her echocardiogram, likely related to her leukemia" -repeat echo in 1 month in outpatient setting FEN/GI: NSS/Regular diet DVT prophylaxis: heparin Code status: full code Dispo: discharge home today (2) Pancytopenia due to antineoplastic chemotherapy: (3) Bilateral lower abdominal pain: (4) Nausea: (5) Pericardial effusion: Admission and Anticipated Discharge Date Admission Date: April 14, 2020 Loyda Fulton is feeling "really good" this morning and is eager to go home. She reports mild abdominal pain but is asymptomatic otherwise. She denies chills, sweats, weakness, or feeling feverish. Review of Systems Constitutional: no fever, no chills, no sweats, no body aches, no fatigue and no weakness Respiratory: no cough, no dyspnea and no wheezing Cardiovascular: no chest pain and no palpitations Gastrointestinal: no nausea, no vomiting, no constipation and no diarrhea/loose stools Physical Exam Constitutional: well developed and well nourished; no acute distress and not ill appearing Respiratory: normal respiratory effort, lungs clear to auscultation Cardiovascular: RRR, no murmur, no edema Gastrointestinal (Abdomen): Percussion/Palpation: abdomen soft; abdomen nontender Psychiatric: A+Ox3, euthymic affect Results & Data Results & Data ([facility]) Vital Signs (Past 12 Hours) Vital Signs Temp Pulse Pulse Resp BP Pulse Ox 04/19/20 08:00 36.8 C 84 18 116/75 99 04/19/20 00:26 36.9 C 85 14 119/73 97 Resident Activity Tracking Resident Involvement: Resident Care Provided Care Provided: Adult Hospital Medicine
[2020-04-19] MEDS: NSS + 20MEQ KCL 20 MEQ/1,000 ML BAG IV SCH (11:40)
[2020-04-19] MEDS: HYDROmorphone HCL 2 MG TAB PO PRN (11:40)
[2020-04-19] MEDS: HEPARIN 100 UNIT/ML 5ML FLUSH FLUSH PRN ×2 (13:50→14:18)
--- NOTE | 2020-04-19 13:56 | Discharge Summary ---
Date of Service April 19, 2020 Admission HPI Per Admitting Provider The patient is a 29-year-old female with a past medical history including CML. She was initially admitted to [facility] from 01/22-01/23, and was then referred to [facility]. From there she was referred to the [facility], where she was given her diagnosis of CML. Since that time, she is now being followed at [facility] in [place], where she had her most recent chemo treatment 1 week ago. Tonight she developed fevers and chills, with some generalized body aches, and after calling [place], she was referred to the ED at [facility] for further assessment. [facility] a total white count 0.30, hemoglobin 8, and platelets 11. Admission Exam Per Admitting Provider The patient is awake, alert and oriented 3, well developed and well nourished, normocephalic and atraumatic, sitting upright in bed and in no acute distress. HEENT--PERRL, EOMI, mucous membranes and oropharynx dry. Neck--supple. No JVD. No bruits. Thyroid normal, trachea midline, no adenopathy. Heart--normal S1 and S2. No murmurs, rubs or gallops. Lungs--clear bilaterally, no respiratory distress, no accessory muscle use. Abdomen--normal bowel sounds and soft. Nontender. Nondistended, obese. Extremities--no cyanosis or clubbing. No edema. Dermatologic--normal skin turgor, normal color, no abnormal lymph nodes, no rash. Neurologic--cranial nerves II through XII grossly intact. Rheumatologic--normal range of motion. Psychiatric--normal affect. Principal Diagnosis Neutropenic fever, proctitis Discharge Exam Constitutional well developed and well nourished; no acute distress Respiratory normal respiratory effort Auscultation: lungs clear to auscultation bilaterally Cardiovascular RRR, no murmur, no edema Gastrointestinal (Abdomen) Inspection/Auscultation: abdomen not distended Percussion/Palpation: + abdomen tender (mild tenderness), abdomen soft and + hepatosplenomegaly Discharge Data Allergies Allergy/AdvReac Type Severity Reaction Status Date / Time No Known Allergies Allergy Verified 04/14/20 02:44 Consultations 04/14/20 04:19 ED Decision to Admit Stat 04/14/20 06:05 Consult Cardiology Routine Consult Case Management - Discharge Planning Routine Consult Case Management - Discharge Planning Routine Consult Hematology Routine Ordered Studies 04/16/20 14:30 CT abd pelvis oral and IV con Stat Hospital Course (1) Neutropenic fever: Kirstin Arias is a 29 year female with a 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 She has been afebrile for about 36 hours, her pancytopenia continues to improve, and her abdominal/rectal pain is better controlled with dilaudid. Neutropenic fever -afebrile for 36 hours -persistent severe abdominal/rectal pain prompted a CT abdomen/pelvis (04/16/20) which showed: "mild rectal wall thickening," consistent with a mild proctitis, which presents a possible infectious etiology for her fevers -transitioned yesterday from IV to PO augmentin; continue for 12 more days at home (875mg bid) -blood cultures show no growth after 48 hours -continue home acyclovir Pancytopenia: likely 2/2 to chemotherapy (dasatinib) -cell counts have increased since yesterday -WBC up from 1.18 to 3.08 -Hgb steady at 7.2 -platelets up from 127 to 174 -patient given 1 bag of platelets on 04/14 and 2 units of blood on 04/15 due to Hgb < 7 -appreciate heme/onc consult -continue home dasatinib Lower abdominal pain and rectal pain likely 2/2 to mild proctitis -patient reports good pain control with Dilaudid q4h -CT abdomen/pelvis with oral and IV contrast (04/16/20) showed: -"mild rectal wall thickening. This could be due to the patient's diffuse edematous state or represent a mild proctitis" -"No evidence for bowel obstruction" -"Mild to moderate body wall edema" -"Hepatosplenomegaly" (consistent with her CML diagnosis) -patient's pain is likely due to the proctitis, continue PO augmentin -KUB (04/15) showed no obstruction, with little stool in the bowel -continue home probiotic -transitioned yesterday from IV to PO dilaudid PRN q4h Hypoalbuminemia -Albumin 2.7 on 04/16 and 04/17 -Lewis-[place] calculation showed that pt needs ~2400 calories/day to maintain her current weight -not eating enough in hospital due to anorexia secondary to chemotherapy (likely not eating enough at home for same reason) -counseled patient on nutrition and caloric goals Nausea -continue prn Zofran Pericardial effusion -patient continues to have no cardiac symptoms -small effusion present on echo (04/14) and CT Abdomen/Pelvis (04/16) -cardiology consult: -"small circumferential effusion noted on her echocardiogram, likely related to her leukemia" -repeat echo in 1 month in outpatient setting FEN/GI: NSS/Regular diet DVT prophylaxis: heparin Code status: full code Dispo: discharge home today Total Time Total Time Spent Total Time Spent (In Minutes): <30 Discharge Plan Discharge Items Patient Disposition: Home - Home Health Services Reason For Visit: NEUTROPENIC FEVER. ELEVATED TROPONIN Discharge Diagnosis: Neutropenic fever, proctitis Activity: Resume your previous activity Non-emergency contact: Primary Care Provider and Oncologist Call non-emergency contact if: you have any medication questions, your symptoms worsen, your pain is not controlled, your pain is worsening, your pain is unusual for you, your pain is concerning for you, you have a fever and your temperature is above 101 Follow-up/Referrals: PT,DECLINED [Primary Care Provider] - Diet: Regular Addtl Attending Provider Instructions: You were admitted for fever, chills, and weakness in the setting of your ongoing chemotherapy treatment. Labwork revealed a low count of different type of blood cells. We treated you with fluids and antibiotics in addition to continuing your chemotherapy treatment. Imaging revealed proctitis, or an infection of a part of your lower GI tract. You responded very well to antibiotic therapy, and your blood counts improved. Because you have been without a fever for over 24 hours, and your blood counts continue to recover, we became comfortable with allowing you to continue your antibiotic therapy from home. You are being sent home with an antibiotic called augmentin. Take one tab (875mg) twice a day for the next 12 days. It is very important that you complete this medication as directed. Please attend your next follow-up appointment with your oncologists at [facility]. If you experience new or worsening symptoms before then, including fever, chills, blood in the stool, or anything else you find alarming, please do not hesitate to seek medical care or call 911. Pending Studies at Discharge: No Stand-Alone Forms: My [facility], Smoking Cessation Medications and DC Order Prescriptions: New amoxicillin-pot clavulanate [Augmentin] 875-125 mg tablet 1 tab PO BID Qty: 12 RF: 0 hydromorphone [Dilaudid] 2 mg tablet 2 mg PO Q6H PRN (Reason: pain) Qty: 14 RF: 0 Continued medroxyprogesterone 10 mg tablet 10 mg PO BID RF: 0 acyclovir 800 mg tablet 800 mg PO BID RF: 0 Sprycel 100 mg tablet 100 mg PO DAILY RF: 0 Discharge Orders: Discharge Order (Routine); Ordered 04/19/20 Ordered By: Weston Buckner/Other Patient Handouts: Opioids Pain Management Admission Data Admit Date/Time: 04/14/20 05:04 Attending Provider: Doe Steve Admit Provider: Patrick Tubbs Primary Care Provider: RAVEN KRISHNAMURTHY Other Providers: Dajuan Schmidt ; Patrick Tubbs ; Aravind Yu ; Cory Gonzalez V. Other Interventions: Discharge Summary Assessment (RN) Last Done: 04/19/20 14:26 Supervising Physician Co-Signing Physician Notes I personally examined the patient and verified all maldonado points of history and exam, discussed case, and agree with decision making with Dr Aly feeling good wants to go home. vitals noted nad heent nc at mmm breathing unlabored no accessory muscles good effort skin no rashes no pallor or icterus. neutropenic fever - seems most likely proctitis as source given her sx. de- escalated abx several days ago, and clinically she continues to improve, counts improving, fever resolved - safe for home on augmentin moderate protein malnutrition - discussed nutrition goals - and outlined - outpt f/u antineoplastic induced pancytopenia - continue to follow as outpt (has next labs in ~2-3 days), needed 2 units PRBC due to anemia, now showing overall very good improvement Resident Activity Tracking Resident Involvement: Resident Care Provided Care Provided: Adult Hospital Medicine
--- NOTE | 2020-04-19 19:40 | Billing Data ---
Date of Service April 19, 2020 Coding Level of Care Code D/C Day Management <30 mins
== END 2020-04-19 16:50 | disposition home health service (06) | DRG 809 ==
LOC: ED 01:14 → SUATTDRO 05:04 → 2E 05:04 → 3W 04-15 23:32

== ENCOUNTER 2020-05-15 00:01 | Observation (INO) ==
[2020-05-15] MEDS ORDERED: SODIUM CHLORIDE 0.9% 250 ML IV PRN ×4 (00:18→08:59)
--- NOTE | 2020-05-15 00:26 | Emergency Department Note ---
Impression & Plan Pancytopenia due to antineoplastic chemotherapy ED Provider Note Name: GLORY ARIAS Age: 29 Sex: F Arrives Via: Ambulance Informant: Patient ED Provider: Dajuan Sheehan MD Chief Complaint: Low blood levels Impression: Pancytopenia due to antineoplastic chemotherapy Medical Decision Making: Pleasant 29 yr old female with Leukemia (unclear if AML/CML, etc) who has been on chemo most recently 10 days ago. Admits on and off nose bleed throughout the day easily controlled as well as increasing weakness over last few days. This morning she had routine blood work, and this evening they called to advise she go to ED for further evaluation. Patient tired and pale appearing but otherwise looking OK. Labs confirm pancytopenia with significant anemia, thrombocytopenia, neutropenia. Given degree of drops will need extended transfusions. I started Plts here as she is reporting intermittent nose bleeds and these faster than PRBC, followed by PRBC irradiated blood. Patient signed consent for this prior to transfusion. She was discussed with hospitalist for further management. Prior Medical Record and Triage/Nursing Notes reviewed by Me Additional history obtained from chart Differentials:Infection, dehydration, metabolic abnormality, hypo/hyperglycemia, electrolyte disturbance, anemia, hypoxia, cardiac sources, intracerebral event, toxicologic, neurologic, as well as other pathologies. Vital Signs: reviewed and remarkable for no significant abnormalities Interventions: 1 Unit Plts, 2 Units PRBC Labs:Reviewed and remarkable for severe pancytopenia Imaging:none Consults:Dr Tubbs Plan: Disposition:Hospitalization. Condition: Fair Blood pressure:Normal.No Referral necessary Prescriptions:none PDMP: n/a History of Present Illness:29 yr old female arrives for evaluation of generalized weakness. She has been under treatment for Leukemia (?AML) with last chemo May 05. Notes that she has had increased fatigue today and has had nose bleed on and off all day that has currently stopped. Routine labs drawn this morning reportedly show severely low Hgb and Plts. She admits several transfusions previously. Admits periodic small red dots on arms/legs over the last few months when plts are low. Reports currently having "mild" headache. No neck stiffness/pain. Denies sob, cp, syncope, abdominal pain, other bleeding, leg swelling nor other symptoms. Her port right chest is currently not working after issues with access a few days ago. Denies falls, trauma, injury. Takes no blood thinners. ROS: See above HPI for pertinent positives & negatives. A total of 10 systems reviewed and were otherwise negative. Past Medical History:Leukemia, Past Surgical History:Tonsillectomy, Right chest mediport Family History:None Social History:, non smoker Home Medications:Acyclovir, Augmentin, Cresemba, Medroxypregesterone, Sprycel Allergies:NKDA Vitals:Blood Pressure: 128/71, Pulse 94, RR 18, T 36.9C, O2 99% on RA Physical Exam: GENERAL: Patient is tired appearing and in minimal distress. EYES: No scleral icterus, unremarkable pupils. ENT: Mucous membranes moist, no nasal congestion. NECK: No masses appreciated, nomeningismus, trachea is midline. RESPIRATORY: No dyspnea. Clear to auscultation and equal bilaterally. No wheeze, no rhonchi. CHEST: Mediport right upper chest with no swelling, nor erythema. There is some bruising noted around port and there are several tape skin baker CARDIOVASCULAR: Regular rate and rhythm.No murmurs, rubs, gallops appreciated. GASTROINTESTINAL: Abdomen soft, non-tender, no peritonitis.Bowel sounds positive.No masses appreciated. BACK: No midline tenderness, no CVA tenderness EXTREMITIES: Normal motion all extremities, no cyanosis, no edema. NEUROLOGIC: Alert and oriented, no acute motor or sensory deficits, no focal weakness, cranial nerves grossly intact. SKIN: No rash, no jaundice, no diaphoresis. PSYCH: Appropriate GCS: 15 ED Course: Times/Reassessments: stable, comfortable and agreeable to transfusion with hospitalization Dajuan Sheehan MD Past Med/Surg History Medical History (Updated 05/15/20 @ 05:23 by Dajuan Sheehan MD) Bone marrow depression Elevated lactic acid level Elevated troponin History of cancer Lab test negative for COVID-19 virus Neutropenic fever No pertinent past medical history Thrombocytopenia Surgical History History of tonsillectomy Social History Smoking Status: Never smoker Tobacco Type: Cigarettes Second Hand Exposure: No; Hx Alcohol Use: No Hx Substance Use: No Preferred Language: Syriac Communication Ability: Effective Electronics Instructor Required: No Beliefs That Will Affect Care: None marital status: Current Living Situation: Spouse Other Information That Helps Us Care for You: No Feels Safe at Home: Yes Safety Concerns: Feels Safe At This Time Allergies Allergies Allergy/AdvReac Type Severity Reaction Status Date / Time No Known Allergies Allergy Verified 05/15/20 01:01 Home Meds Home Medications Medication Instructions Recorded Confirmed Sprycel 100 mg PO DAILY 04/14/20 05/15/20 medroxyprogesterone [Provera] 10 mg PO BID 04/14/20 05/15/20 isavuconazonium sulfate [Cresemba] 372 mg PO DAILY 05/13/20 05/15/20 acyclovir 400 mg PO BID 05/15/20 05/15/20 Results & Data (ED) Vital Signs Vital Signs - 24 hr 05/14/20 23:51 05/15/20 01:51 05/15/20 02:15 Temperature 36.9 C 37 C Temperature Source Oral Oral Pulse Rate 94 H 93 H Pulse Rate [Right Radial] 86 Pulse Rhythm Regular Pulse Rhythm [Right Radial] Regular Pulse Strength Normal Pulse Strength [Right Radial] Normal Respiratory Rate 18 18 20 Respiratory Effort / Characteristics Non-Labored Non-Labored Respiratory Depth Normal Normal Respiratory Pattern Regular Regular Blood Pressure 128/71 119/74 Blood Pressure [Right Arm] 125/58 L Blood Pressure Mean 90 89 Blood Pressure Mean [Right Arm] 80 Blood Pressure Position Lying Lying Blood Pressure Position [Right Arm] Lying Pulse Oximetry 99 99 98 Oxygen Delivery Method Room Air Room Air Sepsis Recent Fever Within 48 Hours No Sepsis New/Unexplained Change in Mental Status No Sepsis Action Taken by Nursing No Action Required 05/15/20 02:29 05/15/20 02:30 05/15/20 02:36 Temperature 36.8 C 36.8 C 36.8 C Temperature Source Oral Oral Oral Pulse Rate 89 89 88 Pulse Rate [Right Radial] Pulse Rhythm Regular Regular Pulse Rhythm [Right Radial] Pulse Strength Normal Normal Pulse Strength [Right Radial] Respiratory Rate 20 20 20 Respiratory Effort / Characteristics Respiratory Depth Respiratory Pattern Blood Pressure 133/60 133/60 130/68 Blood Pressure [Right Arm] Blood Pressure Mean 84 84 88 Blood Pressure Mean [Right Arm] Blood Pressure Position Lying Lying Blood Pressure Position [Right Arm] Pulse Oximetry 99 99 98 Oxygen Delivery Method Sepsis Recent Fever Within 48 Hours Sepsis New/Unexplained Change in Mental Status Sepsis Action Taken by Nursing 05/15/20 03:16 05/15/20 03:30 Temperature 36.8 C 36.9 C Temperature Source Oral Oral Pulse Rate 87 87 Pulse Rate [Right Radial] Pulse Rhythm Regular Pulse Rhythm [Right Radial] Pulse Strength Normal Pulse Strength [Right Radial] Respiratory Rate 18 18 Respiratory Effort / Characteristics Respiratory Depth Respiratory Pattern Blood Pressure 125/58 L 112/71 Blood Pressure [Right Arm] Blood Pressure Mean 80 84 Blood Pressure Mean [Right Arm] Blood Pressure Position Lying Blood Pressure Position [Right Arm] Pulse Oximetry 98 98 Oxygen Delivery Method Sepsis Recent Fever Within 48 Hours Sepsis New/Unexplained Change in Mental Status Sepsis Action Taken by Nursing Laboratory Data Result diagrams: 05/15/20 00:48 05/15/20 00:48 Lab Results 05/15/20 05/15/20 05/15/20 Range/Units 00:48 00:48 00:48 WBC 0.84 L* (4.8-10.8) K/uL RBC 1.83 L (4.2-5.4) M/uL Hgb 5.8 L* (12.0-16.0) g/dL Hct 16.2 L* (37-47) % MCV 88.5 (80-100) fL MCH 31.7 (25-34) pg MCHC 35.8 (32-36) g/dL RDW Std Deviation 52.5 H (36.4-46.3) fL RDW Coeff of Brock 16.1 H (11.5-14.5) % Plt Count 9 L* (130-400) K/uL Immature Gran % (Auto) 0.0 % Neut % (Auto) 5.9 % Lymph % (Auto) 90.5 % Summers % (Auto) 0.0 % Eos % (Auto) 3.6 % Baso % (Auto) 0.0 % Neut # (Auto) 0.05 L* (1.4-6.5) K/uL Lymph # (Auto) 0.76 L (1.2-3.4) K/uL Summers # (Auto) 0.00 L (0.11-0.59) K/uL Eos # (Auto) 0.03 (0-0.5) K/uL Baso # (Auto) 0.00 (0-0.2) K/uL Immature Gran # (Auto) 0.00 (0.00-0.02) K/uL Dohle Bodies Occasional Platelet Estimate SIGNIFIC DECREASED (Normal) Sodium 143 (136-145) mmol/L Potassium 3.4 L (3.5-5.1) mmol/L Chloride 111 H (98-107) mmol/L Carbon Dioxide 26 (21-32) mmol/L Anion Gap 6.0 (3-11) BUN 12 (7-18) mg/dl Creatinine 0.73 (0.6-1.2) mg/dl Est Cr Clr Drug Dosing 143.5 ml/min Est GFR ( Amer) 129.9 Est GFR (Non-Af Amer) 112.1 BUN/Creatinine Ratio 16.9 (10-20) Glucose 100 H (70-99) mg/dl Calcium 9.3 (8.5-10.1) mg/dl Magnesium 1.8 (1.8-2.4) mg/dl Blood Type A Positive Antibody Screen NEGATIVE Crossmatch See Detail Discharge Plan Visit Data Chief Complaint: Abnormal Labs/Diagnostic Testing ED Provider: Dajuan Sheehan Discharge Problem: Pancytopenia due to antineoplastic chemotherapy Patient Disposition: Admitted As Inpatient Discharge Instructions Interventions: ED Discharge Assessment Last Done: 05/15/20 04:01
[2020-05-15 01:21] LABS: BUN Creatinine Ratio 16.9 (10-20); Calcium 9.3 mg/dl (8.5-10.1); Creatinine Clr Calc Pharmacy 143.5 ml/min; Est GFR (African American) 129.9; Est GFR (Non-African American) 112.1; Magnesium 1.8 mg/dl (1.8-2.4); Potassium 3.4 mmol/L (3.5-5.1)
[2020-05-15 01:34] LABS: Hematocrit (blood only) 16.2 % (37-47); Hemoglobin 5.8 g/dL (12.0-16.0); Mean Corpuscular Hemoglobin 31.7 pg (25-34); Mean Corpuscular Hgb Conc 35.8 g/dL (32-36); Mean Corpuscular Volume 88.5 fL (80-100); Platelet Count 9 K/uL (130-400); RDW Coefficient of Variation 16.1 % (11.5-14.5); RDW Standard Deviation 52.5 fL (36.4-46.3); Red Blood Count 1.83 M/uL (4.2-5.4); White Blood Count 0.84 K/uL (4.8-10.8)
[2020-05-15 01:37] LABS: Dohle Bodies Occasional; Eosinophils # (auto) 0.03 K/uL (0-0.5); Eosinophils % (auto) 3.6 %; Lymphocytes # (auto) 0.76 K/uL (1.2-3.4); Lymphocytes % (auto) 90.5 %; Neutrophils # (auto) 0.05 K/uL (1.4-6.5); Neutrophils % (auto) 5.9 %; Platelet Estimate SIGNIFIC DECREASED (Normal)
--- NOTE | 2020-05-15 02:44 | History & Physical Report ---
Date of Service May 15, 2020 Assessment & Plan (1) CML (chronic myelocytic leukemia): Kirstin Arias is a 29 year old woman with a PMH significant for CML who is currently receiving chemotherapy who presents for pancytopenia Pancytopenia HGB of 5.8, Platelet count of 9 ANC of .05 Will transfuse 2 units of PRBC's 1 unit of platelets Contact precautions for neutropenia CBC in am Had similar reaction with neutropenic fever last month approximately one week after chemotherapy. Will need to make [facility] oncology aware and May need to alter current treatment regime CML Patient on daily Dasatinib which can be a bone marrow suppressant, will continue sprycel at this time and continue to monitor her blood counts Communicating with her oncology team in [place] in the morning will be helpful in guiding further treatment F/E/N: Regular Diet DVT PPx: deferred, ambulation as tolerated Dispo: Admit to Med/Surg for transfusions and further monitoring Full Code (2) Port-A-Cath in place: (3) Postprocedural hematoma of skin and subcutaneous tissue following a dermat ologic procedure: (4) Pancytopenia due to antineoplastic chemotherapy: History of Present Illness Chief Complaint: Abnormal Lab Values Primary Care Provider: Farida Vee MD Kirstin Arias is a 29 year old woman with a past medical history significant for Chronic Myelogenous Leukemia that was discovered in blast crisis here in December. She was tranferred to [facility] and then to [facility] where she was diagnosed with CML and has been receiving chemotherapy through [facility]. Her last treatment was on April. She has been doing fairly well since that time, occasionally getting slightly short of breath when climbing stairs but otherwise has not noticed anything out of the ordinary and even the shortness of breath was not enough to affect her day or activity. She had planned lab testing for her chemotherapy today and was found to have severe anemia and thrombocytopenia and was told to come in to the emergency department here. On arrival to ED her vitals are WNL afebrile, her labwork is significant for pancytopenia with a decreased WBC to.84 with an ANC of .05k/microliter, a hemoglobin of 5.8, and a platelet count of 9. Rest of labwork fairly unremarkable, very mild hypokalemia of 3.4. Ms. Arias was here two days ago because she was having port site bleeding. The port she has in placed was inaccessible by her nurse and was reportedly jabbed several times and bled for hours. That has resolved but now she just has some mild bruising and ache to that area, no swelling and pain and bruisign are down from previously. She has not noticed any other areas of ecchymosis or bleeding in stool or urine. Full review of systems negative, she has lost about forty pounds since I saw her last back in December but she has been stable since her last admission. 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 She had her last port infusion 8 days ago and has her next early next month but may need a new port placed in the mean time. Non smoker non drinker, no drug use Full code Allergies Allergy/AdvReac Type Severity Reaction Status Date / Time No Known Allergies Allergy Verified 05/15/20 01:01 Home Medications Home Medications Medication Instructions Recorded Confirmed Type Sprycel 100 mg PO DAILY 04/14/20 05/15/20 History medroxyprogesterone [Provera] 10 mg PO BID 04/14/20 05/15/20 History Cresemba 372 mg PO DAILY 05/13/20 05/15/20 History acyclovir 400 mg PO BID 05/15/20 05/15/20 History Past Med/Surg History Medical History (Updated 05/15/20 @ 05:23 by Dajuan Sheehan MD) Bone marrow depression Elevated lactic acid level Elevated troponin History of cancer Lab test negative for COVID-19 virus Neutropenic fever No pertinent past medical history Thrombocytopenia Surgical History History of tonsillectomy Social History Smoking Status: Never smoker Tobacco Type: Cigarettes Second Hand Exposure: No; Hx Alcohol Use: No Hx Substance Use: No Preferred Language: Welsh Communication Ability: Effective Direct Mail Clerk Required: No Beliefs That Will Affect Care: None marital status: Current Living Situation: Spouse Other Information That Helps Us Care for You: No Feels Safe at Home: Yes Safety Concerns: Feels Safe At This Time Review of Systems Review of Systems: All systems reviewed & are unremarkable except as noted in HPI & below Physical Exam Constitutional: well developed and well nourished; no acute distress and not ill appearing Eyes: PERRL, conjunctivae normal, anicteric sclerae ENMT: external ear and nose normal, oropharynx normal Respiratory: normal respiratory effort, lungs clear to auscultation Cardiovascular: RRR, no murmur, no edema Heart Sounds: no cardiac rub Vessels: normal peripheral pulses and dorsalis pedis pulses present Extremities: no calf tenderness, no pedal edema and no edema Gastrointestinal (Abdomen): normal bowel sounds, soft, nontender, no hepatosplenomegaly Percussion/Palpation: no ascites obese abdomen Skin: Some bruising around port site, small incision at location, no ecchymosis or petechiae elsewhere Neurologic: PERRL, EOMI, accommodation nl, no face palsy, no dysarthria Results & Data Results & Data ([facility]) Vital Signs (Past 12 Hours) Vital Signs Temp Pulse Resp BP Pulse Ox 05/15/20 02:30 36.8 C 89 20 133/60 99 05/15/20 02:29 36.8 C 89 20 133/60 99 05/15/20 02:15 37 C 93 H 20 119/74 98 05/14/20 23:51 36.9 C 94 H 18 128/71 99 Supervising Physician Co-Signing Physician Notes Attending addendum: I have physically seen this patient, have supervised the medical residents activities, and agree with the H&P unless as otherwise noted. Assessment and Plan: CML- Last chemo treatment 1 week ago. As before, has become pancytopenic. Hemoglobin 5.8, platelets 9, ANC 0.05. Will receive 2 units PRBCs and 1 unit of platelets from the ED. Neutropenic precautions Repeat laboratories in a.m. No signs of infection Communicate with [facility] in [place] tomorrow. Remainder of orders and notations as noted Resident Activity Tracking Resident Involvement: Resident Care Provided Care Provided: Adult Hospital Medicine
[2020-05-15] MEDS ORDERED: ONDANSETRON INJ 2 MG/ML 2 ML VIAL IV PRN (04:24)
[2020-05-15] MEDS ORDERED: ALUMINUM/MAGNESIUM SUSP 30 ML UDC PO PRN (04:24)
[2020-05-15] MEDS ORDERED: POLYETHYLENE (MIRALAX) 17 GM PACK PO PRN (04:24)
[2020-05-15] MEDS ORDERED: ACETAMINOPHEN 325 MG TAB PO PRN (04:24)
[2020-05-15] MEDS ORDERED: [UNRECOGNIZED DRUG - OTHER] SCH (08:00)
[2020-05-15] MEDS ORDERED: MEDROXYPROGESTERONE ACETATE 10 MG TAB PO SCH (09:00)
[2020-05-15] MEDS ORDERED: ACYCLOVIR 400 MG TAB PO SCH (09:00)
[2020-05-15] MEDS ORDERED: PEGFILGRASTIM 6 MG/0.6 ML SYR SQ ONE (09:15)
--- NOTE | 2020-05-15 12:57 | Med Student Discharge Summary ---
Date of Service May 15, 2020 Admission HPI Per Admitting Provider Kirstin Arias is a 29 year old woman with a past medical history significant for Chronic Myelogenous Leukemia that was discovered in blast crisis here in December. She was tranferred to [facility] and then to [facility] where she was diagnosed with CML and has been receiving chemotherapy through [facility]. Her last treatment was on April. She has been doing fairly well since that time, occasionally getting slightly short of breath when climbing stairs but otherwise has not noticed anything out of the ordinary and even the shortness of breath was not enough to affect her day or activity. She had planned lab testing for her chemotherapy today and was found to have severe anemia and thrombocytopenia and was told to come in to the emergency department here. On arrival to ED her vitals are WNL afebrile, her labwork is significant for pancytopenia with a decreased WBC to.84 with an ANC of .05k/microliter, a hemoglobin of 5.8, and a platelet count of 9. Rest of labwork fairly unremarkable, very mild hypokalemia of 3.4. Ms. Arias was here two days ago because she was having port site bleeding. The port she has in placed was inaccessible by her nurse and was reportedly jabbed several times and bled for hours. That has resolved but now she just has some mild bruising and ache to that area, no swelling and pain and bruisign are down from previously. She has not noticed any other areas of ecchymosis or bleeding in stool or urine. Full review of systems negative, she has lost about forty pounds since I saw her last back in December but she has been stable since her last admission. 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 She had her last port infusion 8 days ago and has her next early next month but may need a new port placed in the mean time. Non smoker non drinker, no drug use Full code Admission Exam (Per Admitting) Constitutional Admission Physical Exam Constitutional: well developed and well nourished; no acute distress and not ill appearing Eyes: PERRL, conjunctivae normal, anicteric sclerae ENMT: external ear and nose normal, oropharynx normal Respiratory: normal respiratory effort, lungs clear to auscultation Cardiovascular: RRR, no murmur, no edema Heart Sounds: no cardiac rub Vessels: normal peripheral pulses and dorsalis pedis pulses present Extremities: no calf tenderness, no pedal edema and no edema Gastrointestinal (Abdomen): normal bowel sounds, soft, nontender, no hepatosplenomegaly Percussion/Palpation: no ascites obese abdomen Skin: Some bruising around port site, small incision at location, no ecchymosis or petechiae elsewhere Neurologic: PERRL, EOMI, accommodation nl, no face palsy, no dysarthria Specialty Data Hospitalist Discharge physical exam: Constitutional: well appearing, no signs of acute distress Cardiology: RRR, no rubs mummers or gallop. No lower extremity edema Pulmonary: No labored breathing. Lungs clear to auscultation bilaterally. No no crackles , wheezing or rhonchi Discharge Data Consultations 05/15/20 01:51 ED Decision to Admit Stat Hospital Course (1) Pancytopenia due to antineoplastic chemotherapy: Kirstin is a 29 yp FML with an active CML for which she is currently receiving chemotherapy. She was referred to the ED due to pancytopenia noticed on routine labs. Today she appears (2) Anemia: explained above (3) Neutropenia: explained above (4) CML (chronic myelocytic leukemia): Discharge Plan Discharge Items Patient Disposition: Home - Home Health Services Reason For Visit: PANCYTOPENIA SECONDARY TO CHEMOTHERAPY Discharge Diagnosis: pancytopenia secondary to chemotherapy Activity: Per Instructions section Non-emergency contact: Oncologist Call non-emergency contact if: your symptoms worsen Follow-up/Referrals: Farida Vee MD [Primary Care Provider] - Diet: Regular Addtl Attending Provider Instructions: Low red blood counts and platelets You came to the hospital after getting labs that showed that you had low red blood counts and platelets. You were given 2 units of red blood cells, and 1 unit of platelets. Low white blood counts You have a very low white blood cell count, white cells are responsible for fighting infection. You will need to continue to avoid anyone who is sick and continue to practice good hand hygiene with washing hands. This will help to decrease the chance to get an infection. We also gave you Neulasta a medication to help improve your low neutrophil count. Follow up Please call your oncologist to see if you should stop any of your medications and to get follow up labs and review your hospital stay, and guide your lizzy gement outside the hospital. Return precautions If you develop fevers, shortness of breath, or bleeding/oozing we will want you to call or come back. Pending Studies at Discharge: No Stand-Alone Forms: My [facility], Smoking Cessation Medications and DC Order Prescriptions: Continued medroxyprogesterone [Provera] 10 mg tablet 10 mg PO BID RF: 0 Sprycel 100 mg tablet 100 mg PO DAILY RF: 0 Cresemba 186 mg Capsule 372 mg PO DAILY RF: 0 acyclovir 400 mg tablet 400 mg PO BID RF: 0 Discharge Orders: Discharge Order (Routine); Ordered 05/15/20 Ordered By: Karthik Buckner/Other Patient Handouts: Neutropenia, Immunocompromised Patient Dc Admission Data Admit Date/Time: 05/15/20 03:32 Attending Provider: Doe Steve Admit Provider: Alberto Carrillo Primary Care Provider: Farida Vee Other Providers: Patrick Tubbs Other Interventions: Discharge Summary Assessment (RN) Last Done: 05/15/20 14:53 Supervising Attestation I personally examined the patient and verified all maldnoado points of history and exam, discussed case, and agree with decision making with Verenice Ritchie, PETRA. feeling good and wants to go home. did well w transfusions, has no sx of infection. appreciative of care. vitals noted nad heent nc at mmm breathing unlabored no accessory muscles good effort skin no rashes no pallor or icterus antineoplastic therapy induced pancytopenia - fortunately no infection this time, suprisingly little sx. neulasta for neutropenia, 2 units PRBC for anemia, 1 unit platelets for thrombocytopenia and oozing. now stable for home <30mins
[2020-05-15 14:31] LABS: Hematocrit (blood only) 21.7 % (37-47); Hemoglobin 7.6 g/dL (12.0-16.0); Mean Corpuscular Volume 85.8 fL (80-100); Platelet Count 19 K/uL (130-400); Platelet Estimate SIGNIFIC DECREASED (Normal); RDW Coefficient of Variation 15.6 % (11.5-14.5); RDW Standard Deviation 49.5 fL (36.4-46.3); Red Blood Count 2.53 M/uL (4.2-5.4); White Blood Count 0.41 K/uL (4.8-10.8)
[2020-05-15 14:32] LABS: BUN Creatinine Ratio 14.6 (10-20); Calcium 9.2 mg/dl (8.5-10.1); Creatinine Clr Calc Pharmacy 171.8 ml/min; Est GFR (Non-African American) 123.4; Potassium 3.5 mmol/L (3.5-5.1)
--- NOTE | 2020-05-15 19:29 | Billing Data ---
Date of Service May 15, 2020 Coding Level of Care Code 16625 OBS Care - Level 3
--- NOTE | 2020-05-15 19:58 | Electrocardiogram Report ---
Test Reason : Blood Pressure : / mmHG Vent. Rate : 095 BPM Atrial Rate : 095 BPM P-R Int : 150 ms QRS Dur : 066 ms QT Int : 362 ms P-R-T Axes : 014 045 022 degrees QTc Int : 454 ms Poor data quality, interpretation may be adversely affected Normal sinus rhythm Normal ECG When compared with ECG of 16-APR-2020 07:38, No significant change was found Confirmed by Aravind Yu ([id number]) on 05/15/2020 7:58:20 PM Referred By: REFERRED SELF Confirmed By:Aravind Yu
--- NOTE | 2020-05-15 20:02 | Billing Data ---
Date of Service May 15, 2020 Coding Level of Care Code 67526 OBS Care - Discharge
== END 2020-05-15 15:28 | disposition home health service (06) ==
LOC: ED 00:01 → 3W 00:01 → SUATTDRO 03:32 → 3W 04:01

== ENCOUNTER 2020-05-17 02:37 | Observation (INO) ==
[2020-05-17 04:06] LABS: INR 1.2 (0.9-1.1); Partial Thromboplastin Time 28.2 Seconds (21.0-31.0); Prothrombin Time 12.4 Seconds (9.0-12.0)
[2020-05-17 04:14] LABS: Albumin Level 3.4 gm/dl (3.4-5.0); BUN Creatinine Ratio 9.2 (10-20); Calcium 9.2 mg/dl (8.5-10.1); Creatinine Clr Calc Pharmacy 149.6 ml/min; Est GFR (African American) 136.7; Est GFR (Non-African American) 117.9; Magnesium 1.5 mg/dl (1.8-2.4); Potassium 3.8 mmol/L (3.5-5.1)
[2020-05-17 04:17] LABS: Albumin Globulin Ratio 0.9 (0.9-2); Bilirubin,Total 1.3 mg/dl (0.2-1); Total Protein 7.4 gm/dl (6.4-8.2)
[2020-05-17] MEDS ORDERED: SODIUM CHLORIDE 0.9% 1000ML 1,000 ML IV ONE (04:20)
[2020-05-17] MEDS ORDERED: CEFEPIME 2,000 MG/20 ML VIAL IV STA (04:20)
--- NOTE | 2020-05-17 04:20 | Emergency Department Note ---
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 Patient took Tylenol prior to arrival. Patient denies chest pain, dyspnea, cough, congestion, flulike illness, abdominal pain, vomiting, diarrhea. Patient refuses the COVID test. She has had 5- tests. Last one was 1 month ago. Home Medications Home Medications Medication Instructions Recorded Confirmed Type Sprycel 100 mg PO DAILY 04/14/20 05/17/20 History Cresemba 372 mg PO DAILY 05/13/20 05/17/20 History acyclovir 400 mg PO BID 05/15/20 05/17/20 History acetaminophen 1,000 mg PO Q6H PRN 05/17/20 05/17/20 History hydromorphone [Dilaudid] 2 mg PO Q6 PRN 05/17/20 05/17/20 History Allergies Allergy/AdvReac Type Severity Reaction Status Date / Time No Known Allergies Allergy Verified 05/17/20 02:48 Past Med/Surg History Medical History Bone marrow depression Elevated lactic acid level Elevated troponin History of cancer Lab test negative for COVID-19 virus Neutropenic fever No pertinent past medical history Thrombocytopenia Surgical History History of tonsillectomy Social History Smoking Status: Never smoker Tobacco Type: Cigarettes Second Hand Exposure: No; Hx Alcohol Use: No Hx Substance Use: No Preferred Language: Mohawk Communication Ability: Effective Dance Critic Required: No Beliefs That Will Affect Care: None marital status: Current Living Situation: Spouse Feels Safe at Home: Yes Review of Systems A total of 10 systems reviewed and were otherwise negative Physical Exam Vital Signs Vital Signs - 24 hr 05/17/20 02:46 05/17/20 03:34 05/17/20 04:00 Temperature 37.1 C Temperature Source Oral Pulse Rate 96 H Pulse Rate [Apical] 92 H Respiratory Rate 18 18 Respiratory Effort / Characteristics Non-Labored Respiratory Depth Normal Normal Blood Pressure 121/73 Blood Pressure [Left Arm] 150/73 H Blood Pressure Mean 89 Blood Pressure Mean [Left Arm] 98 Pulse Oximetry 98 95 100 Oxygen Delivery Method Room Air Room Air Room Air Sepsis Recent Fever Within 48 Hours Yes Sepsis New/Unexplained Change in Mental Status No Sepsis Action Taken by Nursing No Action Required 05/17/20 05:00 Temperature Temperature Source Pulse Rate Pulse Rate [Apical] 94 H Respiratory Rate 20 Respiratory Effort / Characteristics Respiratory Depth Normal Blood Pressure Blood Pressure [Left Arm] 150/72 H Blood Pressure Mean Blood Pressure Mean [Left Arm] 98 Pulse Oximetry 99 Oxygen Delivery Method Room Air Sepsis Recent Fever Within 48 Hours Sepsis New/Unexplained Change in Mental Status Sepsis Action Taken by Nursing VITALS: Vitals are noted on the nurse's note and reviewed by myself. Vital signs stable. GENERAL: Pleasant female, in no acute distress, nondiaphoretic, well-developed well-nourished. SKIN: The skin was without rashes, erythema, edema, or bruising. There is no tenting of the skin. Capillary reflex less than 2 seconds. HEAD: Normocephalic atraumatic. EARS: External auditory canals clear, tympanic membranes pearly celis without erythema or effusion bilaterally. EYES: Pupils equal round and reactive to light and accommodation. Conjunctivae without injection, sclerae without icterus. Extraocular movements intact. NOSE: Patent, turbinates without inflammation or discharge. MOUTH: Mucous membranes moist. Pharynx without erythema or exudate. Uvula midline. Airway patent. Tongue does not deviate. NECK: Supple without nuchal rigidity. No lymphadenopathy. No thyromegaly. Cervical spine is nontender. No JVD. HEART: Regular rate and rhythm LUNGS: Clear to auscultation bilaterally without wheezes, rales or rhonchi. No retractions or accessory muscle use. ABDOMEN: Positive bowel sounds x 4. Normal tympanic percussion. Soft, nontender, without masses or organomegaly. Ndiaye sign negative. No guarding or rebound tenderness. No CVA tenderness MUSCULOSKELETAL: No muscle atrophy, erythema, or edema noted. NEURO: Patient was alert and oriented to person place and time. Normal sensation to light and sharp touch. No focal neurological deficits. Course Administered Medications Magnesium Sulfate/Dextrose (Magnesium Sulfate / D5w) 1 gm in 100 mls @ 100 mls/hr IV Q1H ELANA Stop: 05/17/20 06:19 Last Admin: 05/17/20 04:39 Dose: 100 mls/hr Documented by: [id number] Discontinued Medications Sodium Chloride (Nss 1000ml) 1,000 mls @ 999 mls/hr IV .Q1H1M ONE Stop: 05/17/20 05:20 Last Admin: 05/17/20 04:39 Dose: 999 mls/hr Documented by: [id number] Cefepime HCl (Maxipime) 2,000 mg in 20 mls @ 5 mls/min IV NOW STA; Protocol Stop: 05/17/20 04:23 Last Admin: 05/17/20 04:37 Dose: 5 mls/min Documented by: [id number] Medical Decision Making Medical Records Attestation: I reviewed the patient's medical records. Home Medications Current Medication List: was personally reviewed by me Laboratory Data Attestation: I reviewed the patient's lab results. Result diagrams: 05/17/20 03:41 05/17/20 03:41 Lab Results 05/17/20 05/17/20 05/17/20 Range/Units 03:41 03:41 03:41 WBC 0.41 L* (4.8-10.8) K/uL RBC 2.28 L (4.2-5.4) M/uL Hgb 6.8 L* (12.0-16.0) g/dL Hct 19.8 L* (37-47) % MCV 86.8 (80-100) fL MCH 29.8 (25-34) pg MCHC 34.3 (32-36) g/dL RDW Std Deviation 50.5 H (36.4-46.3) fL RDW Coeff of Brock 15.7 H (11.5-14.5) % Plt Count 34 L D (130-400) K/uL MPV 11.2 H (7.4-10.4) fL Immature Gran % (Auto) Cancelled Neut % (Auto) Cancelled Lymph % (Auto) Cancelled [place] % (Auto) Cancelled Eos % (Auto) Cancelled Baso % (Auto) Cancelled Neut # (Auto) Cancelled Lymph # (Auto) Cancelled [place] # (Auto) Cancelled Eos # (Auto) Cancelled Baso # (Auto) Cancelled Immature Gran # (Auto) Cancelled Neutrophils % (Manual) Cancelled Band Neutrophils % Cancelled Lymphocytes % (Manual) Cancelled Prolymphocyte % Cancelled Reactive Lymphs % (Man) Cancelled Monocytes % (Manual) Cancelled Eosinophils % (Manual) Cancelled Basophils % (Manual) Cancelled Metamyelocytes % (Man) Cancelled Myelocytes % (Man) Cancelled Promyelocytes % (Man) Cancelled Blast Cells % (Manual) Cancelled Plasma Cell % (Manual) Cancelled Other Cells % Cancelled Nucleated RBC % Cancelled Neutrophils # (Manual) Cancelled Band Neutrophils # Cancelled Total Absolute Neuts Cancelled Lymphocytes # (Manual) Cancelled Prolymphocyte # Cancelled Reactive Lymphs # Cancelled Total Abs Lymphocytes Cancelled Monocytes # (Manual) Cancelled Eosinophils # (Manual) Cancelled Basophils # (Manual) Cancelled Metamyelocytes # (Man) Cancelled Myelocytes # (Manual) Cancelled Promyelocytes # (Man) Cancelled Blast Cells # (Man) Cancelled Plasma Cell # (Manual) Cancelled Other Cells # Cancelled Nucleated RBCs # (Man) Cancelled Hypersegmented Neuts Cancelled Hyposegmented Neuts Cancelled Hypogranular Neuts Cancelled Large Granular Lymphs Cancelled # Lrg Granular Lymphs Cancelled Hairy Cells Cancelled Smudge Cells Cancelled Toxic Granulation Cancelled Toxic Vacuolation Cancelled Dohle Bodies Cancelled Lena Rods Cancelled Hypogranular Platelets Cancelled Clumped Platelets Cancelled Giant Platelets Cancelled Platelet Satelliting Cancelled RBC Morphology Cancelled Polychromasia Cancelled Hypochromasia Cancelled Poikilocytosis Cancelled Basophilic Stippling Cancelled Anisocytosis Cancelled Microcytosis Cancelled Macrocytosis Cancelled Spherocytes Cancelled Pappenheimer Bodies Cancelled Sickle Cells Cancelled Target Cells Cancelled Tear Drop Cells Cancelled Ovalocytes Cancelled Stomatocytes Cancelled Ham-Lole[place] Bodies Cancelled Echinocytes Cancelled Acanthocytes (Spur) Cancelled Rouleaux Cancelled RBC Agglutinates Cancelled Schistocytes Cancelled RBC Morph Comment Cancelled Sezary Cell Cancelled PT 12.4 H (9.0-12.0) Seconds INR 1.2 H (0.9-1.1) APTT 28.2 (21.0-31.0) Seconds PTT Ratio 1.0 Sodium 140 (136-145) mmol/L Potassium 3.8 (3.5-5.1) mmol/L Chloride 109 H (98-107) mmol/L Carbon Dioxide 24 (21-32) mmol/L Anion Gap 7.0 (3-11) BUN 6 L (7-18) mg/dl Creatinine 0.70 (0.6-1.2) mg/dl Est Cr Clr Drug Dosing 149.6 ml/min Est GFR ( Amer) 136.7 Est GFR (Non-Af Amer) 117.9 BUN/Creatinine Ratio 9.2 L (10-20) Glucose 111 H (70-99) mg/dl Lactate (0.4-2.0) mmol/L Calcium 9.2 (8.5-10.1) mg/dl Magnesium 1.5 L (1.8-2.4) mg/dl Total Bilirubin 1.3 H (0.2-1) mg/dl AST 10 L (15-37) U/L ALT 26 (12-78) U/L Alkaline Phosphatase 71 (45-117) U/L Total Protein 7.4 (6.4-8.2) gm/dl Albumin 3.4 (3.4-5.0) gm/dl Globulin 4.0 (2.5-4.0) gm/dl Albumin/Globulin Ratio 0.9 (0.9-2) HCG, Qual (Negative) 05/17/20 05/17/20 Range/Units 03:41 03:41 WBC (4.8-10.8) K/uL RBC (4.2-5.4) M/uL Hgb (12.0-16.0) g/dL Hct (37-47) % MCV (80-100) fL MCH (25-34) pg MCHC (32-36) g/dL RDW Std Deviation (36.4-46.3) fL RDW Coeff of Brock (11.5-14.5) % Plt Count (130-400) K/uL MPV (7.4-10.4) fL Immature Gran % (Auto) Neut % (Auto) Lymph % (Auto) [place] % (Auto) Eos % (Auto) Baso % (Auto) Neut # (Auto) Lymph # (Auto) [place] # (Auto) Eos # (Auto) Baso # (Auto) Immature Gran # (Auto) Neutrophils % (Manual) Band Neutrophils % Lymphocytes % (Manual) Prolymphocyte % Reactive Lymphs % (Man) Monocytes % (Manual) Eosinophils % (Manual) Basophils % (Manual) Metamyelocytes % (Man) Myelocytes % (Man) Promyelocytes % (Man) Blast Cells % (Manual) Plasma Cell % (Manual) Other Cells % Nucleated RBC % Neutrophils # (Manual) Band Neutrophils # Total Absolute Neuts Lymphocytes # (Manual) Prolymphocyte # Reactive Lymphs # Total Abs Lymphocytes Monocytes # (Manual) Eosinophils # (Manual) Basophils # (Manual) Metamyelocytes # (Man) Myelocytes # (Manual) Promyelocytes # (Man) Blast Cells # (Man) Plasma Cell # (Manual) Other Cells # Nucleated RBCs # (Man) Hypersegmented Neuts Hyposegmented Neuts Hypogranular Neuts Large Granular Lymphs # Lrg Granular Lymphs Hairy Cells Smudge Cells Toxic Granulation Toxic Vacuolation Dohle Bodies Lena Rods Hypogranular Platelets Clumped Platelets Giant Platelets Platelet Satelliting RBC Morphology Polychromasia Hypochromasia Poikilocytosis Basophilic Stippling Anisocytosis Microcytosis Macrocytosis Spherocytes Pappenheimer Bodies Sickle Cells Target Cells Tear Drop Cells Ovalocytes Stomatocytes Ham-Lole[place] Bodies Echinocytes Acanthocytes (Spur) Rouleaux RBC Agglutinates Schistocytes RBC Morph Comment Sezary Cell PT (9.0-12.0) Seconds INR (0.9-1.1) APTT (21.0-31.0) Seconds PTT Ratio Sodium (136-145) mmol/L Potassium (3.5-5.1) mmol/L Chloride (98-107) mmol/L Carbon Dioxide (21-32) mmol/L Anion Gap (3-11) BUN (7-18) mg/dl Creatinine (0.6-1.2) mg/dl Est Cr Clr Drug Dosing ml/min Est GFR ( Amer) Est GFR (Non-Af Amer) BUN/Creatinine Ratio (10-20) Glucose (70-99) mg/dl Lactate 1.6 (0.4-2.0) mmol/L Calcium (8.5-10.1) mg/dl Magnesium (1.8-2.4) mg/dl Total Bilirubin (0.2-1) mg/dl AST (15-37) U/L ALT (12-78) U/L Alkaline Phosphatase (45-117) U/L Total Protein (6.4-8.2) gm/dl Albumin (3.4-5.0) gm/dl Globulin (2.5-4.0) gm/dl Albumin/Globulin Ratio (0.9-2) HCG, Qual Negative (Negative) Imaging Data Attestation: I personally reviewed and interpreted this imaging study as follows: MDM Narrative Prior records/ancillary studies reviewed. Triage Nursing notes reviewed. The patient's history was concerning for fever. Differential diagnosis: Etiologies such as neutropenic fever, viral syndrome, otitis, pharyngitis, pneumonia, influenza, meningitis, urinary tract infection, sepsis, bacteremia, as well as others were entertained. Physical examination: As above ER treatment provided: An order was placed for continuous cardiac monitoring. The monitor shows a rate of 60-100 with a sinus rhythm. IV fluids, cefepime On reassessment the patient felt better. Diagnostics interpreted by me: ECG: Ordered for possible sepsis EKG: Normal sinus, normal intervals, no acute ST-T wave changes. Impression normal sinus rhythm interpreted by myself I think arrhythmia is unlikely. EKG shows normal sinus rhythm with no interval abnormalities such as QT prolongation or WPW. There are no findings to suggest Brugada syndrome. Cardiac monitoring in the emergency department reveals no tachycardic or bradycardic dysrhythmia. Hypertrophic cardiomyopathy was considered but there are no clear historical elements pointing toward this. EKG is not suggestive. The QRS voltage is not extremely large and there are no suggestive Q waves. The labs revealed neutropenic Anemia similar to prior Blood cultures pending Imaging studies: Chest x-ray with no acute consolidation, pneumothorax or free air mitral rotation Consultation: A consultation was placed with oncology, Dr. Nelson and recommends antibiotics and admission. Medicine was consulted, Dr. Genao.. The case was discussed and diagnostics were reviewed. The patient was evaluated in the ER for further treatment. This appears to be consistent with neutropenic fever. Patient's white count is low. She was given antibiotics. Medicine and oncology were consulted. She will be admitted. No pneumonia on x-ray. Patient has not urinated yet. She is refusing the COVID test. She is agreeable to admission. By the evaluation outlined above emergent etiologies such as otitis, pharyngitis, pneumonia, meningitis, urinary tract infection, sepsis, bacteremia, as well as others were deemed relatively unlikely. The pt informed about the findings as listed above. All questions were answered and pleased with the treatment. The chart was completed utilizing [employer] ([employer] Speech voice recognition software. Grammatical errors, random word insertions, pronoun errors, and incomplete sentences are an occassional consequence of this system due to software limitations, ambient noise, and hardware issues. Any formal questions or concerns about the content, text, or information contained within the body of this dictation should be directly addressed to the physician laboratory assistant for clarification. Impression & Plan Neutropenic fever Discharge Plan Visit Data Chief Complaint: Fever Stated Complaint: FEVER ED Provider: Opal Snyder ED Midlevel Provider: Caro Lucas Discharge Problem: Neutropenic fever Patient Disposition: Being Evaluated by Hospitalist Condition: Fair Forms Stand Alone Forms: [facility] Prescriptions Prescriptions: No Action Sprycel 100 mg tablet 100 mg PO DAILY RF: 0 Cresemba 186 mg Capsule 372 mg PO DAILY RF: 0 acyclovir 400 mg tablet 400 mg PO BID RF: 0 acetaminophen 500 mg Tablet 1,000 mg PO Q6H PRN (Reason: Fever) RF: 0 hydromorphone [Dilaudid] 2 mg tablet 2 mg PO Q6 PRN (Reason: Pain) RF: 0 Referrals Referrals: Farida Vee MD [Primary Care Provider] -
[2020-05-17 04:21] LABS: Pregnancy Test, Serum Negative (Negative)
[2020-05-17 04:25] LABS: Hematocrit (blood only) 19.8 % (37-47); Hemoglobin 6.8 g/dL (12.0-16.0); Mean Corpuscular Hemoglobin 29.8 pg (25-34); Mean Corpuscular Hgb Conc 34.3 g/dL (32-36); Mean Corpuscular Volume 86.8 fL (80-100); Mean Platelet Volume 11.2 fL (7.4-10.4); Platelet Count 34 K/uL (130-400); RDW Coefficient of Variation 15.7 % (11.5-14.5); RDW Standard Deviation 50.5 fL (36.4-46.3); Red Blood Count 2.28 M/uL (4.2-5.4)
[2020-05-17] MEDS: MAGNESIUM SULFATE / D5W 1 GM/100 ML BAG IV SCH ×2 (04:39→05:41)
[2020-05-17 04:54] LABS: White Blood Count 0.41 K/uL (4.8-10.8)
--- NOTE | 2020-05-17 06:44 | History & Physical Report ---
Date of Service May 17, 2020 Assessment & Plan (1) Neutropenic fever: Kirstin Arias is a 29yo with a 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 Neutropenic Fever -Pt with chills and fever of 101 last night, no fevers since -Denies respiratory symptoms, dysuria, states her c. diff diarrhea has resolved, and has no new skin lesions she can think of -Blood cultures are pending -chest XR unremarkable -trend fever curve -empiric abx coverage with Vanc and Zosyn Anemia -Hgb of 6.8 on admission, pt asymptomatic -consider transfusion 1U CML Patient on daily Dasatinib, continue sprycel Communicating with her oncology team in [place] in the morning will be helpful in guiding further treatment F/E/N: Regular Diet DVT PPx: deferred, ambulation as tolerated CODE STATUS: Full code Dispo: Med/Surg with tele History of Present Illness Primary Care Provider: Farida Vee MD Kirstin Arias is a 29yo with a 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 She states that she developed chills yesterday and took her temperature which was noted to be 101. She then called her oncologist who told he to go to the ED. Allergies Allergy/AdvReac Type Severity Reaction Status Date / Time No Known Allergies Allergy Verified 05/17/20 02:48 Home Medications Home Medications Medication Instructions Recorded Confirmed Type Sprycel 100 mg PO DAILY 04/14/20 05/17/20 History Cresemba 372 mg PO DAILY 05/13/20 05/17/20 History acyclovir 400 mg PO BID 05/15/20 05/17/20 History acetaminophen 1,000 mg PO Q6H PRN 05/17/20 05/17/20 History hydromorphone [Dilaudid] 2 mg PO Q6 PRN 05/17/20 05/17/20 History Past Med/Surg History Medical History Bone marrow depression Elevated lactic acid level Elevated troponin History of cancer Lab test negative for COVID-19 virus Neutropenic fever No pertinent past medical history Thrombocytopenia Surgical History History of tonsillectomy Social History Smoking Status: Never smoker Tobacco Type: Cigarettes Second Hand Exposure: No; Hx Alcohol Use: No Hx Substance Use: No Preferred Language: Mohawk Communication Ability: Effective Leadite Heater Required: No Beliefs That Will Affect Care: None marital status: Current Living Situation: Spouse Other Information That Helps Us Care for You: No Feels Safe at Home: Yes Safety Concerns: Feels Safe At This Time Review of Systems Constitutional: + fever, + chills and + fatigue; no body aches Eyes: no worsening vision Ear, Nose, Mouth, Throat: no nasal congestion, no sore throat and no dysphagia Respiratory: no cough, no chest congestion and no dyspnea Cardiovascular: no chest pain, no dyspnea and no palpitations Gastrointestinal: no abdominal pain, no nausea, no vomiting, no constipation and no diarrhea/loose stools Genitourinary: no dysuria Musculoskeletal: + body aches Integumentary: no rash and no lesions Neurologic: no falls, no dizziness, no headache(s) and no confusion Psychiatric: no confusion Hematologic / Lymphatic: + problem reported (no bleeding) Physical Exam Physical Exam: General: Alert, oriented. No acute distress, laying in bed Skin: No noted rashes or bruises, right hand IV site was very tender Psych: Appropriate mood and affect Neuro: No gross deficits HEENT: NC/AT, Chest: Nontender to palpation. CV: RRR, Normal s1, s2. No murmurs appreciated Resp: Breath sounds clear bilaterally, no increased effort of breathing. No crackles/rhonchi/rales. Abdomen: Soft, nontender, nondistended. No guarding. Extremities: No edema in lower extremities bilaterally. Results & Data Results & Data ([facility]) Vital Signs (Past 12 Hours) Vital Signs Temp Pulse Pulse Resp BP BP Pulse Ox 05/17/20 06:00 95 H 20 153/72 H 95 05/17/20 05:00 94 H 20 150/72 H 99 05/17/20 04:00 92 H 18 150/73 H 100 05/17/20 03:34 95 05/17/20 02:46 37.1 C 96 H 18 121/73 98 Supervising Physician Co-Signing Physician Notes Attending addendum: I have physically seen this patient, have supervised the medical residents activities, and agree with the H&P unless as otherwise noted. Assessment and Plan: Neutropenic fever/CML- Patient developed temperature of 101 last evening. She has no specific symptoms of infection. She will be mated on broad-spectrum antibiotics vancomycin and Zosyn IV. Follow blood urine and sputum cultures Neutropenic precautions Pancytopenia due to antineoplastic therapy- Hemoglobin 6.8 upon admission, and is status post 2 units PRBCs last admission. We will transfuse 1 unit PRBCs again while in hospital. Thrombocytopenia- Platelets have improved to 34, from a level of 9 on 05/15/2020, after receiving platelet transfusion during last hospitalization. No further platelet transfusion today. Remaining orders and notations as noted Resident Activity Tracking Resident Involvement: Resident Care Provided Care Provided: [facility] Medicine Addendum (Blank) Addendum May 17, 2020 16:29 Patient seen later in the morning after admission. Noted she was feeling well, no discomfort at this time. Denied recurring chills/fevers. PE: Heart RRR, Lungs CTA b/l, Abdomen soft n/t normal bowel sounds, no cuts/bruises on extremities. A/P: Patient asymptomatic with hgb 6.8, will defer transfusion at this time and continue to monitor, recheck in AM. Monitor blood cultures. Will watch for fevers overnight, if none will likely transition to oral course of abx in AM with plans to dc home to complete course.
[2020-05-17] MEDS ORDERED: VANCOMYCIN CONSULT ACTIVE PRN (08:31)
[2020-05-17] MEDS ORDERED: PIPERACILLIN/TAZOBACTAM 3.375 GM in DEXTROSE 5% 100 ML IV SCH (08:31)
[2020-05-17] MEDS ORDERED: PIPERACILL/TAZOBAC CONSULT ACTIVE PRN (08:31)
[2020-05-17] MEDS ORDERED: ISAVUCONAZONIUM SULFATE 372 MG PO SCH (09:00)
[2020-05-17] MEDS ORDERED: DASATINIB 100 MG PO SCH (09:00)
[2020-05-17] MEDS ORDERED: VANCOMYCIN HCL 2,500 MG in SODIUM CHLORIDE 0.9% 500 ML IV ONE (09:30)
--- NOTE | 2020-05-17 09:35 | Pharmacy Report ---
Pharmacy Abx Initial Consult - Date of Service May 17, 2020 - Pharmacy Dosing Scope Date of Consult: 05/17 Consultation requested by: Dr. Marsh Pharmacy is consulted to initiate vancomycin and zosyn IV/PO dosing therapy, order appropriate labs and adjust drug dose/frequency. - Subjective The patient is a 29 year old F admitted on 05/17/20 06:35. - Objective Height: 5 ft 5 in Weight: 112.5 kg Vital Signs (Past 12hrs): Vital Signs Temp Pulse Pulse Pulse Resp BP BP 05/17/20 07:34 37.2 C 96 H 20 143/69 H 05/17/20 07:00 78 18 151/62 H 05/17/20 06:00 95 H 20 153/72 H 05/17/20 05:00 94 H 20 150/72 H 05/17/20 04:00 92 H 18 150/73 H 05/17/20 03:34 05/17/20 02:46 37.1 C 96 H 18 121/73 Pulse Ox 05/17/20 07:34 95 05/17/20 07:00 96 05/17/20 06:00 95 05/17/20 05:00 99 05/17/20 04:00 100 05/17/20 03:34 95 05/17/20 02:46 98 Lab Results (24hrs): Laboratory Tests (24 Hours) 05/17/20 05/17/20 03:41 03:41 WBC 0.41 L* Neut # (Auto) Cancelled Creatinine 0.70 Est Cr Clr Drug Dosing 149.6 Micro Results: 05/17/20 03:55 Aerobic Blood Culture - Pending Blood Anaerobic Blood Culture - Pending 05/17/20 03:41 Aerobic Blood Culture - Pending Blood Anaerobic Blood Culture - Pending - Risk Factors for Resistance * Hospitalization for 48 hours or more within the past 90 days * Immunocompromised (CML - dasatinib/sprycel) * Antimicrobial use within the last 90 days [vanco/zosyn last admission] - Assessment & Plan Assessment 29 year old female with hx of CML on chemotherapy. Presenting with pancytopenia and fever. Started empirically on vancomycin and zosyn. Blood cultures x 2 are pending. Plan Vancomycin IV * Vancomycin 2500 mg (~22 mg/kg) x 1 * Will start maintenance dose of vancomycin 1750 mg iv q 8 hrs (~15 mg/kg/dose) * Estimated kinetics: t1/2 <8 hrs, CrCl >100 - dosing based upon recent admission 04/16/20 * Plan to order trough tomorrow before 1000 dose to ensure dosing appropriate / note this is before steady state however want to make sure level not supratherapeutic due to increased risk of accumulation with BMI >35 kg/m2 Piperacillin/tazobactam * 4.5 gm iv q 8 hr - appropriate for CrCl >30 ml/min) Pharmacy will continue to follow and will adjust dose/frequency as necessary. Thank you.
--- NOTE | 2020-05-17 09:59 | XRay Report ---
SINGLE VIEW CHEST CLINICAL HISTORY: Sepsis. FINDINGS: An AP, portable, upright chest radiograph is compared to study dated 04/14/2020. Correlation is made with abdominal CT dated 04/16/2020. A right internal jugular central venous infusion port is in place. The cardiac silhouette is enlarged. The pulmonary vasculature is noncongested. The lungs an d pleural spaces are clear. No pneumothorax is seen. The bony thorax is grossly intact. IMPRESSION: 1. The cardiac silhouette appears enlarged. This is likely related to a pericardial effusion when cor related with the recent abdominal CT. 2. No airspace consolidation or pleural effusion is identified. ACT 112: Negative or not required by law. Electronically signed by: Jack Mandel M.D. 05/17/2020 9:57 AM
[2020-05-17] MEDS ORDERED: PIPERACILLIN/TAZOBACTAM 4.5 GM in DEXTROSE 5% 100 ML IV ONE (10:00)
[2020-05-17] MEDS: ACETAMINOPHEN 500 MG TAB PO SCH ×3 (10:02→22:16)
[2020-05-17] MEDS: MAGNESIUM OXIDE 400 MG TAB PO SCH ×2 (10:03→20:41)
[2020-05-17 13:16] LABS: Appearance Urine Clear (Clear); Bacteria Urine Automated Negative (Negative); Bilirubin Urine Negative (Negative); Blood Urine Trace (Negative); Color Urine Yellow; Epithelial Cell Urine Auto 20-30 /lpf (0-5); Glucose Urine UA Negative (Negative); Ketones Urine Negative (Negative); Leukocyte Esterase Urine Negative (Negative); Nitrite Urine Negative (Negative); Protein Urine 2+ (Negative); RBC Urine Automated 0-4 /hpf (0-4); Specific Gravity Urine 1.017 (1.000-1.030); Urobilinogen Urine Negative (Negative)
[2020-05-17] MEDS: PIPERACILLIN/TAZOBACTAM 4.5 GM in DEXTROSE 5% 100 ML IV SCH ×2 (15:58→23:45)
--- NOTE | 2020-05-17 16:53 | Electrocardiogram Report ---
Test Reason : Blood Pressure : / mmHG Vent. Rate : 094 BPM Atrial Rate : 094 BPM P-R Int : 140 ms QRS Dur : 068 ms QT Int : 350 ms P-R-T Axes : 016 047 021 degrees QTc Int : 437 ms Normal sinus rhythm Normal ECG When compared with ECG of 15-MAY-2020 00:07, No significant change was found Confirmed by Neil Dunlap [id number]) on 05/17/2020 4:52:50 PM Referred By: REFERRED SELF Confirmed By:Saleem Dunlap
[2020-05-17] MEDS: VANCOMYCIN HCL 1,750 MG in SODIUM CHLORIDE 0.9% 500 ML IV SCH (17:54)
--- NOTE | 2020-05-17 18:32 | Billing Data ---
Date of Service May 17, 2020 Coding Level of Care Code 29094 OBS Care - Level 3
[2020-05-17] MEDS ORDERED: NON-FORMULARY MEDICATION PO SCH (20:00)
--- NOTE | 2020-05-17 20:29 | Communication Note ---
Date of Service: May 17, [address] olivarez in f/u from early am admission feeling fine d/w dr shannon - apparently she had run out of proph meds vitals noted nad heent nc at mmm breathing unlabored no accessory muscles good effort skin no rashes no pallor or icterus neutropenic fever - ?source. broad abx pending cultures. lack of symptoms and benign exam quite reassuring antineoplastic therapy induced pancytopenia - just had gCSF ~2 days ago, plt reasonable / no need for further transfusion - will follow Hgb - if still low tomorrow will transfuse, holding off today so as to follow fever curve without possible interference from transfusion
[2020-05-17] MEDS: CRESEMBA PO SCH (20:40)
[2020-05-17] MEDS: DASATINIB PO SCH (20:41)
[2020-05-17] MEDS ORDERED: KETOROLAC TROMETHAMINE 15 MG/ML VIAL IV ONE (23:19)
[2020-05-18] MEDS: VANCOMYCIN HCL 1,750 MG in SODIUM CHLORIDE 0.9% 500 ML IV SCH ×2 (02:05→10:37)
[2020-05-18] MEDS ORDERED: SODIUM CHLORIDE 0.9% 1000ML 1,000 ML IV SCH (03:30)
[2020-05-18] MEDS: ACETAMINOPHEN 500 MG TAB PO SCH ×2 (06:10→14:15)
[2020-05-18] MEDS: PIPERACILLIN/TAZOBACTAM 4.5 GM in DEXTROSE 5% 100 ML IV SCH (08:54)
[2020-05-18] MEDS: DASATINIB PO SCH (08:54)
[2020-05-18] MEDS: MAGNESIUM OXIDE 400 MG TAB PO SCH (08:54)
[2020-05-18] MEDS: CRESEMBA PO SCH (08:54)
[2020-05-18] MEDS ORDERED: VANCOMYCIN TROUGH ONE (09:30)
--- NOTE | 2020-05-18 14:26 | Magnetic Resonance Report ---
LUMBAR SPINE MRI HISTORY: Febrile. Lower back pain. Assess for discitis/osteomyelitis. TECHNIQUE: Multiplanar multisequence MRI of the lumbar spine was performed without the use of contras t. COMPARISON: Abdomen and pelvis CT 04/16/2020. Lumbar spine 07/01/2018. FINDINGS: For the purpose of the report the L5-S1 disc space will be located on axial image 24 of 26. Patchy marrow edema within the bilateral sacral wings which is partially visualized. This is consiste nt with insufficiency fractures. No fracture or subluxation within the lumbar spine. Moderate disc sp kwame narrowing at L5-S1. Remaining disc spaces are preserved. Normal marrow signal intensity seen thro ughout the disc spaces and lumbar spine. No evidence for discitis/osteomyelitis. Paraspinal soft soft tissues are unremarkable. Trace prevertebral soft tissue edema. No disc herniations identified. L1-L2: No significant central canal or neural foraminal narrowing. L2-L3: No significant central canal or neural foraminal narrowing. L3-L4: No significant central canal or neural foraminal narrowing. L4-L5: No significant central canal or neural foraminal narrowing. L5-S1: No significant central canal or neural foraminal narrowing. IMPRESSION: 1. No evidence for discitis/osteomyelitis. 2. Bilateral sacral insufficiency fractures. 3. No disc herniations. No significant central canal or neural foraminal narrowing. 4. Moderate disc space narrowing at L5-S1. ACT 112: Negative or not required by law. Electronically signed by: Elías Damon M.D. 05/18/2020 2:24 PM
--- NOTE | 2020-05-18 14:53 | Discharge Summary ---
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 She states that she developed chills yesterday and took her temperature which was noted to be 101. She then called her oncologist who told he to go to the ED. Admission Exam Per Admitting Provider General: Alert, oriented. No acute distress, laying in bed Skin: No noted rashes or bruises, right hand IV site was very tender Psych: Appropriate mood and affect Neuro: No gross deficits HEENT: NC/AT, Chest: Nontender to palpation. CV: RRR, Normal s1, s2. No murmurs appreciated Resp: Breath sounds clear bilaterally, no increased effort of breathing. No crackles/rhonchi/rales. Abdomen: Soft, nontender, nondistended. No guarding. Extremities: No edema in lower extremities bilaterally. Principal Diagnosis neutropenic fever Discharge Exam Constitutional WD/WN, vitals as above no acute distress Respiratory normal respiratory effort, lungs clear to auscultation Cardiovascular RRR, no murmur, no edema Gastrointestinal (Abdomen) normal bowel sounds, soft, nontender, no hepatosplenomegaly Musculoskeletal TTP at the piriformis and left lower lumbar Skin no rashes, warm and dry Psychiatric A+Ox3, euthymic affect Discharge Data Allergies Allergy/AdvReac Type Severity Reaction Status Date / Time No Known Allergies Allergy Verified 05/17/20 02:48 Consultations 05/17/20 05:10 ED Decision to Admit Stat Ordered Studies 05/18/20 12:46 MR lumbar spine wo con Urgent Hospital Course (1) Neutropenic fever: Kirstin Arias is a 29yo with a 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 Neutropenic Fever -Pt with chills and fever of 101 at home night of admission, no fevers since -No obvious causes of infection -Blood culture were negative -chest XR unremarkable -No further fevers while inpatient -empiric abx coverage with Vanc and Zosyn, discharged home with 5 day course of Doxycycline and Augmentin Anemia -Hgb of 6.8 on admission, pt asymptomatic -Did not transfuse during this stay CML -Patient on daily Dasatinib, continue sprycel -Refilled patients Acyclovir 800mg BID prior to discharge as she had run out at home, encouraged patient to see her Oncologist Low Back Pain -Piriformis irritation vs B/L Sacral insufficiency fractures -Trial of OMT muscle energy to piriformis to good effect -Taught patient effective stretching -Recommended patient follow up with her PCP/Oncologist in regards to the insu fficiency fractures as they may be secondary to her chemotherapy. Total Time Total Time Spent Total Time Spent (In Minutes): <30mins Discharge Plan Discharge Items Patient Disposition: Home - Self-Care Reason For Visit: FEVER Discharge Diagnosis: Neutropenic Fever Condition on Discharge: Fair Activity: Per Instructions section Non-emergency contact: Primary Care Provider and Oncologist Call non-emergency contact if: you have any medication questions, your symptoms worsen and you have a fever Follow-up/Referrals: Farida Vee MD [Primary Care Provider] - Diet: Regular Addtl Attending Provider Instructions: Hugo, It was our pleasure caring for you at [facility] from 05/17- 05/18/20 in regards to concerns for your neutropenic fever. At your admission to the hospital, you had noted that you had a fever at home and had called your Oncologist who recommended you be evaluated at the ED. During your admission you were given IV antibiotics empirically as your immune system is very weak due to the chemotherapy. You had no fevers while inpatient and had no signs of infection in your blood. We felt that it was appropriate for you to be discharged on a short course of oral antibiotics and to follow up with your PCP/Oncologist. You had also noted that you had run out of your Acyclovir, we have refilled your prescription temporarily and recommend you meet with your Oncologist to continue the prescription. You also noted some low back pain. An MRI was conducted which showed NO INFECTION of the bone, but did note bilateral sacral insufficiency fractures (typically found in osteoporotic women with low impact causes). This may be a contributing factor to your pain. We recommend you follow this up with your PCP/Oncologist in regards to checking your bone density and possibly starting supplementation to strengthen your bones. It may also be related to your chemotherapy, to which we would again urge you to discuss with your Oncologist. Please see below for further instructions. 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 Pending Studies at Discharge: No Stand-Alone Forms: My [facility], Smoking Cessation Medications and DC Order Prescriptions: New doxycycline hyclate 100 mg tablet 100 mg PO BID 5 Days Qty: 10 RF: 0 amoxicillin-pot clavulanate [Augmentin] 875-125 mg tablet 1 tab PO BID 5 Days Qty: 10 RF: 0 acyclovir 800 mg tablet 800 mg PO BID 14 Days Qty: 28 RF: 0 Continued Sprycel 100 mg tablet 100 mg PO DAILY RF: 0 Cresemba 186 mg Capsule 372 mg PO DAILY RF: 0 acetaminophen 500 mg Tablet 1,000 mg PO Q6H PRN (Reason: Fever) RF: 0 hydromorphone [Dilaudid] 2 mg tablet 2 mg PO Q6 PRN (Reason: Pain) RF: 0 Discontinued acyclovir 400 mg tablet 400 mg PO BID RF: 0 Discharge Orders: Discharge Order (Routine); Ordered 05/18/20 Ordered By: Saman Terrazas Admission Data Admit Date/Time: 05/17/20 06:35 Attending Provider: Doe Steve Admit Provider: Lala Marsh Primary Care Provider: Farida Vee Other Providers: Patrick Tubbs Other Interventions: Discharge Summary Assessment (RN) Last Done: 05/18/20 15:50 Supervising Physician Co-Signing Physician Notes I personally examined the patient and verified all maldonado points of history and exam, discussed case, and agree with decision making with Dr Terrazas. back pain - moved and it started. lower back and R buttock some. otherwise feeling better vitals noted nad heent nc at mmm breathing unlabored no accessory muscles good effort skin no rashes no pallor or icterus msk/ost - no spinal tenderness R s ided pelvic musculature in region of piriformis high tone/tender/decreased ROM - LAS and muscle energy - improved back pain - MRI since nearly no WBC so anything possible - fortunately was negative. appeared c/w pelvic somatic dysfunction from tight piriformis - OMT as above, taught stretches. pt tolerated well neutropenic fever - stable for home. doxy and augmentin (highly doubt pseudomonas) otherwise as above Resident Activity Tracking Resident Involvement: Resident Care Provided Care Provided: Adult Hospital Medicine
--- NOTE | 2020-05-18 17:36 | Hospitalist Progress Note ---
Date of Service May 18, 2020 Assessment & Plan Admission and Anticipated Discharge Date Admission Date: May 17, 2020 Results & Data Results & Data ([facility]) Vital Signs (Past 12 Hours) Vital Signs Temp Pulse Pulse Pulse Resp BP Pulse Ox 05/18/20 15:50 99.0 F 78 99 H 18 142/83 H 100 05/18/20 15:06 99.0 F 99 H 18 142/83 H 100 05/18/20 14:21 98.1 F 100 H 20 127/79 100 05/18/20 07:10 93 H PG Care Time/CCT Total # of Minutes Spent Total Time Spent with Patient: Total time spent is greater than 50% in coordination of care (as documented) at patient's floor/unit and/or counseling patient: Coding Level of Care Code None CPT Codes Musculoskeletal - Musculoskeletal: [address] 1-2 Body regions ( [id number])
--- NOTE | 2020-05-18 17:36 | Billing Data ---
Date of Service May 18, 2020 Coding Level of Care Code D/C Day Management <30 mins
== END 2020-05-18 17:23 | disposition home health service (06) | DRG 809 ==
LOC: ED 02:37 → SUATTDRO 06:35 → 2N 06:35 → INTOOBSV 06:35 → 2N 07:14

== ENCOUNTER 2020-06-12 13:41 | Inpatient (IN) ==
--- NOTE | 2020-06-12 14:18 | Emergency Department Note ---
History of Present Illness General Chief complaint: Dizziness Stated complaint: DIZZINESS, CAN'T WALK Time Seen by Provider: 06/12/20 13:54 History of Present Illness This is a 29-year-old female that presents to the emergency department via private vehicle accompanied by individual with complaints "dizziness, cannot walk". 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 She follows at [facility] with oncology. She sees Dr. Farida Vee MD hematology/oncology. Patient currently undergoing chemotherapy. She has a port. She notes that her last dose of chemotherapy was this past Tuesday. Chemotherapy regimen is Cy tarabine. She states that this past Tuesday she developed what she describes as dizziness that is more of a vertiginous sensation with the room shaking/spinning. She had a nausea initially but that has subsided. She was seen here and evaluated and notes that she has been taking meclizine without relief. She feels that the right ear is clogged and has been using Q-tips. No pain at this time. No fevers. She denies any current speech trouble or weakness. Home Medications Home Medications Medication Instructions Recorded Confirmed Type Sprycel 100 mg PO DAILY 04/14/20 06/12/20 History acetaminophen 650 mg PO Q4H PRN 06/10/20 06/12/20 History acyclovir 400 mg PO BID 06/10/20 06/12/20 History isavuconazonium sulfate [Cresemba] 372 mg PO DAILY 06/10/20 06/12/20 History ondansetron HCl 8 mg PO Q8H PRN 06/10/20 06/12/20 History pegfilgrastim-cbqv [Udenyca] See Rx Instructions .ROUTE .COMPLEX 06/10/2006/12 History pyridoxine (vitamin B6) [Vitamin 100 mg PO TID 06/10/20 06/12/20 History B-6] meclizine 25 mg PO TID PRN #30 tab 06/11/20 06/12/20 Rx promethazine 25 mg PO Q6H PRN #20 tab 06/11/20 06/12/20 Rx Allergies Allergy/AdvReac Type Severity Reaction Status Date / Time No Known Allergies Allergy Verified 06/12/20 14:45 Past Med/Surg History Medical History Bone marrow depression Elevated lactic acid level Elevated troponin History of cancer Lab test negative for COVID-19 virus Neutropenic fever No pertinent past medical history Thrombocytopenia Surgical History History of tonsillectomy Social History Smoking Status: Never smoker Tobacco Type: Cigarettes Second Hand Exposure: No; Hx Alcohol Use: No Hx Substance Use: No Preferred Language: Albanian Communication Ability: Effective Car Driver Required: No Beliefs That Will Affect Care: None marital status: Life Partner Current Living Situation: Spouse Other Information That Helps Us Care for You: No Feels Safe at Home: Yes Safety Concerns: Feels Safe At This Time Assistive Devices: Glasses Review of Systems A total of 10 systems reviewed and were otherwise negative Physical Exam Vital Signs Vital Signs - 24 hr 06/12/20 13:44 06/12/20 13:55 06/12/20 14:00 Temperature 37.1 C Temperature Source Oral Pulse Rate 109 H 79 Pulse Rate [Apical] 72 Pulse Rate from SpO2 Sensor 80 Pulse Rhythm Regular Pulse Rhythm [Apical] Regular Pulse Strength Normal Pulse Strength [Apical] Respiratory Rate 18 25 H Respiratory Effort / Characteristics Non-Labored Spontaneous Non-Labored Respiratory Depth Normal Normal Respiratory Pattern Regular Regular Blood Pressure 118/79 126/84 Blood Pressure [Right Arm] 126/84 Blood Pressure Mean 92 91 Blood Pressure Mean [Right Arm] 98 Blood Pressure Position Sitting Blood Pressure Position [Right Arm] Sitting Pulse Oximetry 98 98 98 Oxygen Delivery Method Room Air Room Air Oxygen Flow Rate Sepsis Recent Fever Within 48 Hours No Sepsis New/Unexplained Change in Mental Status No Sepsis Action Taken by Nursing No Action Required 06/12/20 14:02 06/12/20 14:06 06/12/20 14:10 Temperature Temperature Source Pulse Rate 73 71 Pulse Rate [Apical] Pulse Rate from SpO2 Sensor 75 71 Pulse Rhythm Pulse Rhythm [Apical] Pulse Strength Pulse Strength [Apical] Respiratory Rate 15 22 Respiratory Effort / Characteristics Respiratory Depth Respiratory Pattern Blood Pressure Blood Pressure [Right Arm] Blood Pressure Mean Blood Pressure Mean [Right Arm] Blood Pressure Position Blood Pressure Position [Right Arm] Pulse Oximetry 99 98 Oxygen Delivery Method Room Air Room Air Oxygen Flow Rate 99 Sepsis Recent Fever Within 48 Hours Sepsis New/Unexplained Change in Mental Status Sepsis Action Taken by Nursing 06/12/20 14:20 06/12/20 14:30 06/12/20 14:40 Temperature Temperature Source Pulse Rate 75 75 77 Pulse Rate [Apical] Pulse Rate from SpO2 Sensor 74 75 78 Pulse Rhythm Pulse Rhythm [Apical] Pulse Strength Pulse Strength [Apical] Respiratory Rate 20 14 20 Respiratory Effort / Characteristics Respiratory Depth Respiratory Pattern Blood Pressure Blood Pressure [Right Arm] Blood Pressure Mean Blood Pressure Mean [Right Arm] Blood Pressure Position Blood Pressure Position [Right Arm] Pulse Oximetry 98 98 99 Oxygen Delivery Method Oxygen Flow Rate Sepsis Recent Fever Within 48 Hours Sepsis New/Unexplained Change in Mental Status Sepsis Action Taken by Nursing 06/12/20 14:50 06/12/20 15:00 06/12/20 15:10 Temperature Temperature Source Pulse Rate 74 82 79 Pulse Rate [Apical] Pulse Rate from SpO2 Sensor 73 81 75 Pulse Rhythm Pulse Rhythm [Apical] Pulse Strength Pulse Strength [Apical] Respiratory Rate 15 16 20 Respiratory Effort / Characteristics Respiratory Depth Respiratory Pattern Blood Pressure Blood Pressure [Right Arm] Blood Pressure Mean Blood Pressure Mean [Right Arm] Blood Pressure Position Blood Pressure Position [Right Arm] Pulse Oximetry 99 98 100 Oxygen Delivery Method Oxygen Flow Rate Sepsis Recent Fever Within 48 Hours Sepsis New/Unexplained Change in Mental Status Sepsis Action Taken by Nursing 06/12/20 15:20 06/12/20 16:27 06/12/20 19:23 Temperature Temperature Source Pulse Rate 76 Pulse Rate [Apical] 70 77 Pulse Rate from SpO2 Sensor 78 Pulse Rhythm Pulse Rhythm [Apical] Regular Regular Pulse Strength Pulse Strength [Apical] Normal Normal Respiratory Rate 24 22 24 Respiratory Effort / Characteristics Non-Labored Non-Labored Respiratory Depth Normal Normal Respiratory Pattern Regular Regular Blood Pressure Blood Pressure [Right Arm] 126/84 97/62 L Blood Pressure Mean Blood Pressure Mean [Right Arm] 98 73 Blood Pressure Position Blood Pressure Position [Right Arm] Lying Lying Pulse Oximetry 99 99 99 Oxygen Delivery Method Room Air Room Air Oxygen Flow Rate Sepsis Recent Fever Within 48 Hours Sepsis New/Unexplained Change in Mental Status Sepsis Action Taken by Nursing VITAL SIGNS - Vital signs and nursing notes were reviewed. Stable and afebrile. GENERAL - 29-year-old female appearing her stated age who is in no acute distress. Communicates well with provider and answers questions appropriately. SKIN - Without rashes. HEAD - NC/AT. EYES - PERRL with EOMI bilaterally. Sclera anicteric. No nystagmus. EARS - No deformities of external structures noted on gross examination bilaterally. Right ear canal is full of cerumen that appears to be impacted against the TM. Left ear canal clear. Right TM obscured secondary to wax. No drainage. NOSE - Midline and without cyanosis. No epistaxis or purulent drainage noted. Septum midline without deviation or septal hematoma noted. MOUTH/OROPHARYNX - Without perioral cyanosis. Buccal mucosa pink and moist and without leukoplakia. Tongue midline with equal elevation of palate bilaterally. No tonsillar hypertrophy, erythema, or exudates noted. Good dentition noted. NECK - Neck with FROM. No meningismus, no nuchal rigidity. LUNGS - Chest wall symmetric without accessory muscle use, intercostals retractions, or central cyanosis. Normal vesicular breath sounds CTA B/L. No wheezes, rales, or rhonchi appreciated. CARDIAC - RRR with S1/S2. No murmur, rubs, or gallops appreciated. EXTREMITIES - No clubbing or peripheral cyanosis. No pretibial edema present. +5/5 strength noted in UE/LE bilaterally. NEUROLOGIC - Cranial nerves II through XII grossly intact. Sensory intact to light touch throughout. PSYCH - A&Ox3 and cooperates fully with examiner. Pt is very pleasant and interacts well with examiner. Course Administered Medications Acyclovir (Acyclovir 400 Mg Tab) 400 mg PO BID [facility] Stop: 07/12/20 21:42 Last Admin: 06/12/20 22:48 Dose: 400 mg Documented by: [id number] Pyridoxine HCl (Pyridoxine Hcl 50 Mg Tab) 100 mg PO TID ELANA Stop: 07/12/20 21:42 Last Admin: 06/12/20 22:48 Dose: 100 mg Documented by: [id number] Discontinued Medications Diazepam (Diazepam 5 Mg/Ml Inj 10ml Vial) 5 mg IV NOW STA Stop: 06/12/20 14:07 Last Admin: 06/12/20 14:54 Dose: 5 mg Documented by: [id number] Gadobutrol (Gadobutrol 65ml Vial) 11 ml IV ONCE ONE Stop: 06/12/20 20:42 Last Admin: 06/12/20 20:41 Dose: 11 ml Documented by: [id number] Sodium Chloride (Nss 1000ml) 1,000 mls @ 999 mls/hr IV .Q1H1M ELANA Stop: 06/12/20 17:15 Last Infusion: 06/12/20 17:29 Dose: 0 mls/hr Documented by: [id number] Admin: 06/12/20 16:28 Dose: 999 mls/hr Documented by: [id number] Meclizine HCl (Meclizine Hcl 25 Mg Tab) 25 mg PO NOW STA Stop: 06/12/20 18:38 Last Admin: 06/12/20 19:19 Dose: 25 mg Documented by: [id number] Medical Decision Making Laboratory Data Result diagrams: 06/12/20 14:28 06/12/20 14:28 Lab Results 06/12/20 06/12/20 06/12/20 Range/Units 14:28 14:28 14:28 WBC 3.75 L (4.8-10.8) K/uL RBC 2.56 L (4.2-5.4) M/uL Hgb 8.6 L (12.0-16.0) g/dL Hct 25.2 L (37-47) % MCV 98.4 (80-100) fL MCH 33.6 (25-34) pg MCHC 34.1 (32-36) g/dL RDW Std Deviation 70.4 H (36.4-46.3) fL RDW Coeff of Brock 19.8 H (11.5-14.5) % Plt Count 66 L D (130-400) K/uL MPV 7.8 (7.4-10.4) fL Immature Gran % (Auto) 7.5 % Neut % (Auto) 81.0 % Lymph % (Auto) 8.8 % [place] % (Auto) 1.6 % Eos % (Auto) 0.8 % Baso % (Auto) 0.3 % Neut # (Auto) 3.04 (1.4-6.5) K/uL Lymph # (Auto) 0.33 L (1.2-3.4) K/uL [place] # (Auto) 0.06 L (0.11-0.59) K/uL Eos # (Auto) 0.03 (0-0.5) K/uL Baso # (Auto) 0.01 (0-0.2) K/uL Immature Gran # (Auto) 0.28 H (0.00-0.02) K/uL Platelet Estimate Decreased L (Normal) PT 12.0 (9.0-12.0) Seconds INR 1.1 (0.9-1.1) APTT 26.0 (21.0-31.0) Seconds PTT Ratio 0.9 Sodium 139 (136-145) mmol/L Potassium 3.5 (3.5-5.1) mmol/L Chloride 108 H (98-107) mmol/L Carbon Dioxide 24 (21-32) mmol/L Anion Gap 7.0 (3-11) BUN 21 H (7-18) mg/dl Creatinine 0.80 (0.6-1.2) mg/dl Est Cr Clr Drug Dosing 130.8 ml/min Est GFR ( Amer) 116.3 Est GFR (Non-Af Amer) 100.3 BUN/Creatinine Ratio 26.4 H (10-20) Glucose 111 H (70-99) mg/dl Calcium 9.8 (8.5-10.1) mg/dl Magnesium 2.0 (1.8-2.4) mg/dl Total Bilirubin 1.1 H (0.2-1) mg/dl AST 12 L (15-37) U/L ALT 24 (12-78) U/L Alkaline Phosphatase 58 (45-117) U/L Troponin I < 0.015 (0-0.045) ng/ml Total Protein 6.6 (6.4-8.2) gm/dl Albumin 3.5 (3.4-5.0) gm/dl Globulin 3.1 (2.5-4.0) gm/dl Albumin/Globulin Ratio 1.1 (0.9-2) TSH 5.910 H (0.300-4.500) uIu/ml Free T4 1.16 (0.8-1.6) ng/dl Imaging Data Radiologist's Impression: Brain MRI WITHOUT CONTRAST HISTORY: Undergoing chemotherapy. AML/CML Last dose Tuesday. Vertigo persistent for the past 48 hours despite meds. TECHNIQUE: Multiplanar multisequence MRI of the brain was performed without the use of contrast. COMPARISON STUDY: None. FINDINGS: There are no areas of restricted diffusion to suggest acute infarction. The midline structures are intact. Mild mucosal thickening within the left sphenoid sinus. The mastoid air cells are clear. The ventricles and sulci are within normal limits for age. There is no mass, hematoma, midline shift. The major vascular flow-voids at the skull base are well maintained. IMPRESSION: No acute intracranial abnormality. ACT 112: Negative or not required by law. Electronically signed by: Elías Damon M.D. 06/12/2020 6:16 PM Blood Pressure Additional Comments: EKG per my interpretation reveals normal sinus rhythm at a rate of 73 bpm. No ectopy or ischemic change. QTc 427. This was compared to EKG of June 10, 2020 and no significant change was found. MDM Narrative Patient was seen and evaluated as above in room C09. Review was performed of n ursing notes and vital signs. I did review pertinent previous visits and patient history. After obtaining a thorough history and physical examination the above work up was performed. She presents to us today with what she describes as a vertigo sensation. She is nontoxic on examination and has stable vital signs. No nystagmus. I reviewed her previous visit. There is decrease in white blood cell, red blood cell, hemoglobin and hematocrit consistent with patient's known past medical history. Platelet count decreased at 66,000. No emergent metabolic disturbance. The patient notes that she is currently being treated for a malignancy similar to that of AML/CML but states that it is quite rare. The patient had chemotherapy earlier this week. She developed acute onset vertigo symptoms about 2 days ago. It was felt that MRI imaging of the brain was necessary neck step. This was obtained. Results as above. This is essentially negative. The patient does have a fair amount of wax in the right ear and consent was obtained and then I irrigated this with warm water. Patient tolerated this very well. All of the wax was removed. She notes some minor improvement in her vertiginous symptoms but this persisted. She was reevaluated several times with persistence of symptoms despite IV Valium and p.o. meclizine. Given the patient's persistence of symptoms despite outpatient therapy to a point where she could not walk further it is felt that further evaluation and management is warranted in the inpatient setting. Patient was amenable to staying. Case discussed with the hospitalist. Please refer to further documentation regarding her stay. Case was discussed with the attending physician. An order was placed for continuous cardiac monitoring. The monitor shows a rate of 74 with sinus rhythm. I attest that I have personally reviewed the patient medication list. I attest that I have reviewed the patient's blood pressure and it was found to be mildly elevated GCS: 15 In the evaluation and treatment of this patient, the following differential diagnoses were considered: Concussion, Contrecoup Injury, Brain Tumor, Depression, Encephalitis, Hypothyroidism, Meningitis, CVA, TIA, Migraine, Cluster Headache, Intracranial Abnormality, Intracranial Hemorrhage, Subdural Hematoma, Subarachnoid Hemorrhage, Hydrocephalus, among others. Impression & Plan Vertigo Discharge Plan Visit Data Chief Complaint: Dizziness Stated Complaint: DIZZINESS, CAN'T WALK ED Provider: Doe Dave ED Midlevel Provider: Oneil Bishop Discharge Problem: Vertigo Patient Disposition: Admitted As Inpatient Condition: Good Discharge Instructions Interventions: ED Discharge Assessment Last Done: 06/12/20 20:54
[2020-06-12 15:04] LABS: INR 1.1 (0.9-1.1); Partial Thromboplastin Ratio 0.9
[2020-06-12 15:07] LABS: Alanine Aminotransferase 24 U/L (12-78); Albumin Level 3.5 gm/dl (3.4-5.0); Aspartate Aminotransferase 12 U/L (15-37); BUN Creatinine Ratio 26.4 (10-20); Blood Urea Nitrogen 21 mg/dl (7-18); Calcium 9.8 mg/dl (8.5-10.1); Carbon Dioxide 24 mmol/L (21-32); Chloride 108 mmol/L (98-107); Creatinine Clr Calc Pharmacy 130.8 ml/min; Est GFR (African American) 116.3; Est GFR (Non-African American) 100.3; Glucose 111 mg/dl (70-99); Potassium 3.5 mmol/L (3.5-5.1); Sodium 139 mmol/L (136-145)
[2020-06-12 15:17] LABS: Albumin Globulin Ratio 1.1 (0.9-2); Alkaline Phosphatase 58 U/L (45-117); Bilirubin,Total 1.1 mg/dl (0.2-1); Globulin 3.1 gm/dl (2.5-4.0); Total Protein 6.6 gm/dl (6.4-8.2); Troponin I < 0.015 ng/ml (0-0.045)
[2020-06-12 15:18] LABS: Basophils # (auto) 0.01 K/uL (0-0.2); Basophils % (auto) 0.3 %; Eosinophils # (auto) 0.03 K/uL (0-0.5); Eosinophils % (auto) 0.8 %; Hematocrit (blood only) 25.2 % (37-47); Hemoglobin 8.6 g/dL (12.0-16.0); Immature Granulocytes # (auto) 0.28 K/uL (0.00-0.02); Immature Granulocytes % (auto) 7.5 %; Lymphocytes # (auto) 0.33 K/uL (1.2-3.4); Lymphocytes % (auto) 8.8 %; Mean Corpuscular Hemoglobin 33.6 pg (25-34); Mean Corpuscular Hgb Conc 34.1 g/dL (32-36); Mean Corpuscular Volume 98.4 fL (80-100); Mean Platelet Volume 7.8 fL (7.4-10.4); Monocytes # (auto) 0.06 K/uL (0.11-0.59); Monocytes % (auto) 1.6 %; Neutrophils # (auto) 3.04 K/uL (1.4-6.5); Platelet Count 66 K/uL (130-400); Platelet Estimate Decreased (Normal); RDW Coefficient of Variation 19.8 % (11.5-14.5); RDW Standard Deviation 70.4 fL (36.4-46.3); Red Blood Count 2.56 M/uL (4.2-5.4); White Blood Count 3.75 K/uL (4.8-10.8)
[2020-06-12 15:33] LABS: T4 Free Thyroxine 1.16 ng/dl (0.8-1.6)
[2020-06-12] MEDS ORDERED: SODIUM CHLORIDE 0.9% 1000ML 1,000 ML IV SCH (16:15)
--- NOTE | 2020-06-12 18:17 | Magnetic Resonance Report ---
Brain MRI WITHOUT CONTRAST HISTORY: Undergoing chemotherapy. AML/CML Last dose Tuesday. Vertigo persistent for the past 48 hour s despite meds. TECHNIQUE: Multiplanar multisequence MRI of the brain was performed without the use of contrast. COMPARISON STUDY: None. FINDINGS: There are no areas of restricted diffusion to suggest acute infarction. The midline structu res are intact. Mild mucosal thickening within the left sphenoid sinus. The mastoid air cells are sun ar. The ventricles and sulci are within normal limits for age. There is no mass, hematoma, midline sh ift. The major vascular flow-voids at the skull base are well maintained. IMPRESSION: No acute intracranial abnormality. ACT 112: Negative or not required by law. Electronically signed by: Elías Damon M.D. 06/12/2020 6:16 PM
[2020-06-12] MEDS ORDERED: MECLIZINE HCL 25 MG TAB PO STA (18:37)
--- NOTE | 2020-06-12 19:38 | History & Physical Report ---
Date of Service June 12, 2020 Assessment & Plan (1) Vertigo: Peripheral vertigo on HINTS exam. MRI reassuringly normal. Based on time course and lack of past medical history less likely BPPV No viral syndrome, nasal congestion, ear fullness, otitis media to suggest acute vestibular neuritis. Suspect isavuconazonium as known side effect of this - will discontinue for now and discuss alternatives with [facility] oncology. (2) CML (chronic myelocytic leukemia): Continue Sprycel 100 mg p.o. daily, acyclovir for chronic suppression. Admission and Anticipated Discharge Date Admission Date: 06/12/2020 History of Present Illness Chief Complaint: Vertigo Primary Care Provider: Farida Vee MD Kirstin Arias is a 29 year old female with a significant history of hematological malignancy which is being treated as AML who presents to the ER with acute onset vertigo. Vertiginous sensation started on Tuesday. She called her oncologist the following day and recommended coming to the ER. She was given Phenergan, NSS bolus without resolution of her symptoms. She was sent home with meclizine and promethazine which again did not help. It has been constant since skin warm but worse when she moves her head especially to the left. No nasal congestion, ear fullness, fever, chills. No extremity weakness, change in sensation, change in voice, hearing, smell. Her oncologist is Dr. Mead @ [facility]. She started her current chemotherapy regimen in February with no side effects and has not changed since then. Allergies Allergy/AdvReac Type Severity Reaction Status Date / Time No Known Allergies Allergy Verified 06/12/20 14:45 Home Medications Home Medications Medication Instructions Recorded Confirmed Type Sprycel 100 mg PO DAILY 04/14/20 06/12/20 History acetaminophen 650 mg PO Q4H PRN 06/10/20 06/12/20 History acyclovir 400 mg PO BID 06/10/20 06/12/20 History isavuconazonium sulfate [Cresemba] 372 mg PO DAILY 06/10/20 06/12/20 History ondansetron HCl 8 mg PO Q8H PRN 06/10/20 06/12/20 History pegfilgrastim-cbqv [Udenyca] See Rx Instructions .ROUTE .COMPLEX 06/10/20 06/12/20 History pyridoxine (vitamin B6) [Vitamin 100 mg PO TID 06/10/20 06/12/20 History B-6] meclizine 25 mg PO TID PRN #30 tab 06/11/20 06/12/20 Rx promethazine 25 mg PO Q6H PRN #20 tab 06/11/20 06/12/20 Rx Past Med/Surg History Medical History Bone marrow depression Elevated lactic acid level Elevated troponin History of cancer Lab test negative for COVID-19 virus Neutropenic fever No pertinent past medical history Thrombocytopenia Surgical History History of tonsillectomy Social History Smoking Status: Never smoker Tobacco Type: Cigarettes Second Hand Exposure: No; Hx Alcohol Use: No Hx Substance Use: No Preferred Language: Eritrean Communication Ability: Effective [employer] Machine Set Up Mechanic Required: No Beliefs That Will Affect Care: None marital status: Current Living Situation: Spouse Other Information That Helps Us Care for You: No Feels Safe at Home: Yes Safety Concerns: Feels Safe At This Time Assistive Devices: Glasses Review of Systems Review of Systems: All systems reviewed & are unremarkable except as noted in HPI & below Physical Exam Constitutional: well developed and + morbidly obese; + not well nourished and no acute distress Eyes: PERRL, conjunctivae normal, anicteric sclerae + nystagmus [place]- [place]: Significant nystagmus when performed to the left side, fast nystagmus to the right. Anneliese's maneuver finished. No vertical or torsional nystagmus. Visual fixation - Not suppressed ENMT: external ear and nose normal, oropharynx normal Neck: trachea midline, no thyromegaly Respiratory: normal respiratory effort, lungs clear to auscultation Cardiovascular: RRR, no murmur, no edema Skin: no rashes, warm and dry Neurologic: CN's II-XI intact bilaterally, moves all extremities and awake; no focal motor deficits and not confused Speech / Cognition: normal speech Motor/Sensory: no tremor and no pronator drift Psychiatric: A+Ox3, euthymic affect Results & Data Results & Data ([facility]) Vital Signs (Past 12 Hours) Vital Signs Temp Pulse Pulse Resp BP BP Pulse Ox 06/12/20 19:23 77 24 97/62 L 99 06/12/20 16:27 70 22 126/84 99 06/12/20 15:20 76 24 99 06/12/20 15:10 79 20 100 06/12/20 15:00 82 16 98 06/12/20 14:50 74 15 99 06/12/20 14:40 77 20 99 06/12/20 14:30 75 14 98 06/12/20 14:20 75 20 98 06/12/20 14:10 71 22 98 06/12/20 14:06 73 15 99 06/12/20 14:00 72 126/84 98 06/12/20 13:55 79 25 H 126/84 98 06/12/20 13:44 37.1 C 109 H 18 118/79 98 Diagnostic Findings Brain MRI WITHOUT CONTRAST IMPRESSION: No acute intracranial abnormality. MR brain IAC wo/w con IMPRESSION: Normal bilateral internal auditory canals. ECG Indication: other Rate (beats per minute): 73 Rhythm: normal sinus Findings: no acute ischemic change Comparison ECG Date: from (June 10, 2020) Change: no significant change Code Status & VTE Plan Code Status Full VTE Prophylaxis Plan VTE Prophylaxis will be ordered: No Reason for no VTE drug order: Treatment not indicated Reason for no VTE mechanical prophylaxis: Treatment not indicated PG Care Time/CCT Total # of Minutes Spent Total Time Spent with Patient: Total time spent is greater than 50% in coordination of care (as documented) at patient's floor/unit and/or counseling patient: Coding Level of Care Code 97143 OBS Care - Level 3 Diagnoses Vertigo R42 CML (chronic myelocytic leukemia) C92.10
[2020-06-12] MEDS ORDERED: GADOBUTROL 65ML VIAL IV ONE (20:41)
--- NOTE | 2020-06-12 20:53 | Magnetic Resonance Report ---
MR brain IAC wo/w con HISTORY: CML/AML, acute onset vertigo TECHNIQUE: Multiplanar multisequence MRI of the internal auditory canals were performed both before a nd after the intravenous administration of Gadavist contrast. COMPARISON STUDY: Brain MRI 06/12/2020. FINDINGS: No masses or abnormal enhancement within the bilateral internal auditory canals. The 7th an d 8th cranial nerves are normal in course and caliber. Axial and coronal postcontrast sequences of th e brain were also obtained. No abnormal enhancement within the brain. IMPRESSION: Normal bilateral internal auditory canals. ACT 112: Negative or not required by law. Electronically signed by: Elías Damon M.D. 06/12/2020 8:51 PM
[2020-06-12] MEDS ORDERED: MECLIZINE HCL 25 MG TAB PO PRN (21:43)
[2020-06-12] MEDS ORDERED: ONDANSETRON 8MG OD TAB PO PRN (21:43)
[2020-06-12] MEDS ORDERED: diazePAM 5 MG TABLET PO PRN (21:55)
[2020-06-12] MEDS: PYRIDOXINE HCL 50 MG TAB PO SCH (22:48)
[2020-06-12] MEDS: ACYCLOVIR 400 MG TAB PO SCH (22:48)
--- NOTE | 2020-06-13 06:11 | Electrocardiogram Report ---
Test Reason : Blood Pressure : / mmHG Vent. Rate : 073 BPM Atrial Rate : 073 BPM P-R Int : 148 ms QRS Dur : 082 ms QT Int : 388 ms P-R-T Axes : 013 034 032 degrees QTc Int : 427 ms Normal sinus rhythm Normal ECG When compared with ECG of 10-JUN-2020 21:25, No significant change was found Confirmed by Aravind Yu ([id number]) on 06/13/2020 6:10:42 AM Referred By: NO PCP Confirmed By:Aravind Yu
[2020-06-13] MEDS: ACYCLOVIR 400 MG TAB PO SCH ×2 (08:40→21:54)
[2020-06-13] MEDS: prednisoLONE acetate 1% OP SUSP 5 ML BTL OPB SCH ×3 (08:40→21:55)
[2020-06-13] MEDS: PYRIDOXINE HCL 50 MG TAB PO SCH ×3 (08:40→21:54)
[2020-06-13] MEDS ORDERED: DASATINIB PO SCH (09:00)
[2020-06-13 10:13] LABS: Hematocrit (blood only) 21.7 % (37-47); Hemoglobin 7.3 g/dL (12.0-16.0); Mean Corpuscular Hemoglobin 33.2 pg (25-34); Mean Corpuscular Hgb Conc 33.6 g/dL (32-36); Mean Corpuscular Volume 98.6 fL (80-100); RDW Coefficient of Variation 19.2 % (11.5-14.5); RDW Standard Deviation 68.6 fL (36.4-46.3); White Blood Count 1.54 K/uL (4.8-10.8)
[2020-06-13 10:17] LABS: Mean Platelet Volume 7.4 fL (7.4-10.4); Platelet Count 54 K/uL (130-400)
[2020-06-13 10:43] LABS: Basophils # (auto) 0.01 K/uL (0-0.2); Basophils % (auto) 0.6 %; Immature Granulocytes # (auto) 0.09 K/uL (0.00-0.02); Immature Granulocytes % (auto) 5.8 %; Lymphocytes % (auto) 19.5 %; Monocytes # (auto) 0.04 K/uL (0.11-0.59); Monocytes % (auto) 2.6 %; Neutrophils % (auto) 71.5 %
[2020-06-13 11:02] LABS: Albumin Level 3.3 gm/dl (3.4-5.0); Bilirubin,Total 1.3 mg/dl (0.2-1); Calcium 8.9 mg/dl (8.5-10.1); Creatinine Clr Calc Pharmacy 137.4 ml/min; Est GFR (African American) 123.7; Est GFR (Non-African American) 106.8; Globulin 3.2 gm/dl (2.5-4.0); Phosphorus 3.9 mg/dl (2.5-4.9); Potassium 3.8 mmol/L (3.5-5.1); Total Protein 6.5 gm/dl (6.4-8.2)
--- NOTE | 2020-06-13 11:05 | Hospitalist Progress Note ---
Date of Service June 13, 2020 Assessment & Plan (1) Vertigo: MRI brain and auditory canals on 06/12 both normal. Based on time course and lack of past medical history less likely BPPV. No viral syndrome, nasal congestion, ear fullness, otitis media to suggest acute vestibular neuritis. - Suspect isavuconazonium as known side effect of this - (though <5% per UpToDate); will discontinue for now and discuss alternatives with [facility] oncology. (2) AML (acute myeloblastic leukemia): Follows with Dr. Farida Vee at [facility] in [place]. Discussed on 06/13. Actually has AML. Presently does NOT need Neupogen. - Hold Sprycel & Cresemba per Dr. Vee - Can restart as outpatient. - Continue acyclovir (3) DVT prophylaxis: SCDs - Will defer on heparin given platelets near 50k and dropping. Admission and Anticipated Discharge Date Admission Date: June 12, 2020 Subjective No particular change in the vertigo today. Better when lying entirely still, but worse with movement. Reports no fevers/chills, chest pain, shortness of breath, abdominal pain, nausea, or vomiting. Physical Exam Constitutional: WD/WN, vitals as above Eyes: EOM intact bilaterally; no conjunctival abnormality ENMT: external ear and nose normal, oropharynx normal Neck: trachea midline, no thyromegaly normal visual inspection Respiratory: normal respiratory effort, lungs clear to auscultation no respiratory distress Cardiovascular: RRR, no murmur, no edema Gastrointestinal (Abdomen): Inspection/Auscultation: abdomen normal to inspection; abdomen not distended Musculoskeletal: no cyanosis or clubbing, extremities motor strength 5/5 Skin: no rashes, warm and dry Neurologic: moves all extremities and awake Psychiatric: Orientation: alert, oriented to person and cooperative Results & Data Results & Data ([facility]) Vital Signs (Past 12 Hours) Vital Signs Temp Pulse Resp BP Pulse Ox 06/13/20 07:27 36.8 C 66 16 96/61 L 98 06/12/20 23:54 37.2 C 95 H 16 119/68 97 PG Care Time/CCT Total # of Minutes Spent Total Time Spent with Patient: Total time spent is greater than 50% in coordination of care (as documented) at patient's floor/unit and/or counseling patient: Coding Level of Care Code 01227 Subseq Hosp Care Lvl 3 Diagnoses Vertigo R42 AML (acute myeloblastic leukemia) C92.00 DVT prophylaxis Z29.9
[2020-06-13] MEDS ORDERED: SCOPOLAMINE 1.5 MG TDSY TD ONE (22:08)
[2020-06-13] MEDS: CHECK SCOPOLAMINE PATCH PLACEMENT SCH (23:38)
[2020-06-14] MEDS: HEPARIN 100 UNIT/ML 5ML FLUSH FLUSH PRN ×3 (05:16→15:50)
[2020-06-14 06:57] LABS: Eosinophils # (auto) 0.01 K/uL (0-0.5); Eosinophils % (auto) 1.3 %; Hematocrit (blood only) 20.2 % (37-47); Hemoglobin 6.9 g/dL (12.0-16.0); Immature Granulocytes # (auto) 0.02 K/uL (0.00-0.02); Immature Granulocytes % (auto) 2.6 %; Lymphocytes # (auto) 0.27 K/uL (1.2-3.4); Lymphocytes % (auto) 35.1 %; Mean Corpuscular Hemoglobin 33.2 pg (25-34); Mean Corpuscular Hgb Conc 34.2 g/dL (32-36); Mean Corpuscular Volume 97.1 fL (80-100); Mean Platelet Volume 9.2 fL (7.4-10.4); Monocytes # (auto) 0.02 K/uL (0.11-0.59); Monocytes % (auto) 2.6 %; Neutrophils # (auto) 0.45 K/uL (1.4-6.5); Neutrophils % (auto) 58.4 %; Platelet Count 49 K/uL (130-400); RDW Coefficient of Variation 18.6 % (11.5-14.5); RDW Standard Deviation 65.1 fL (36.4-46.3); Red Blood Count 2.08 M/uL (4.2-5.4); White Blood Count 0.77 K/uL (4.8-10.8)
[2020-06-14 06:58] LABS: Dohle Bodies 1+; Tear Drop Cells 1+
[2020-06-14] MEDS ORDERED: SODIUM CHLORIDE 0.9% 250 ML IV PRN (07:25)
[2020-06-14] MEDS: PYRIDOXINE HCL 50 MG TAB PO SCH ×3 (09:17→20:11)
[2020-06-14] MEDS: ACYCLOVIR 400 MG TAB PO SCH ×3 (09:17→20:11)
[2020-06-14] MEDS: CHECK SCOPOLAMINE PATCH PLACEMENT SCH ×2 (09:17→15:40)
[2020-06-14] MEDS: prednisoLONE acetate 1% OP SUSP 5 ML BTL OPB SCH ×3 (09:18→20:10)
[2020-06-14] MEDS: FILGRASTIM 480 MCG/1.6 ML VIAL SQ SCH (10:41)
--- NOTE | 2020-06-14 18:30 | Hospitalist Progress Note ---
Date of Service June 14, 2020 Assessment & Plan (1) Vertigo: MRI brain and auditory canals on 06/12 both normal. Based on time course and lack of past medical history less likely BPPV. No viral syndrome, nasal congestion, ear fullness, or otitis media to suggest acute vestibular neuritis. - Suspect isavuconazonium as known side effect of this - (though <5% per UpToDate) - Could also be due to cytarabine per Dr. Vee. - Worked with PT on 06/13 with vestibular exercises without improvement. Meclizine also not helping. - Consider neurology consult if no improvement by tomorrow. (2) AML (acute myeloblastic leukemia): Follows with Dr. Farida Vee at [facility] in [place]. Discussed on 06/13 & 06/14. 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 - Hold Sprycel & Cresemba per Dr. Vee - Can restart as outpatient. - Continue acyclovir - Started Neupogen 480 mcg SQ daily x 7 days on 06/[address] Vee as she became neutropenic. - Transfused 2 units of PRBCs on 06/14 for dropping hgb. (3) DVT prophylaxis: SCDs - Will defer on heparin given platelets < 50k. Admission and Anticipated Discharge Date Admission Date: June 12, 2020 Subjective No change in vertigo today. Reports no fevers/chills, chest pain, shortness of breath, abdominal pain, nausea, or vomiting. Physical Exam Constitutional: WD/WN, vitals as above Eyes: EOM intact bilaterally; no conjunctival abnormality ENMT: external ear and nose normal, oropharynx normal Neck: trachea midline, no thyromegaly normal visual inspection Respiratory: normal respiratory effort, lungs clear to auscultation no respiratory distress Cardiovascular: RRR, no murmur, no edema Gastrointestinal (Abdomen): Inspection/Auscultation: abdomen normal to inspection; abdomen not distended Musculoskeletal: no cyanosis or clubbing, extremities motor strength 5/5 Skin: no rashes, warm and dry Neurologic: moves all extremities and awake Psychiatric: Orientation: alert, oriented to person and cooperative Results & Data Results & Data ([facility]) Vital Signs (Past 12 Hours) Vital Signs Temp Pulse Pulse Resp BP BP Pulse Ox 06/14/20 14:35 37.1 C 66 16 123/77 99 06/14/20 14:31 37.1 C 66 16 123/77 99 06/14/20 14:30 36.5 C 67 16 131/76 99 06/14/20 14:00 36.8 C 73 16 116/70 100 06/14/20 13:43 36.8 C 72 18 123/74 99 06/14/20 13:27 36.8 C 71 18 123/76 98 06/14/20 13:26 36.8 C 71 18 123/76 98 06/14/20 12:40 36.7 C 67 16 109/71 99 06/14/20 11:40 36.9 C 70 16 128/74 100 06/14/20 11:10 36.8 C 70 18 107/68 98 06/14/20 10:54 36.6 C 73 18 91/58 L 99 06/14/20 10:32 36.9 C 72 18 95/59 L 99 06/14/20 07:51 37.1 C 77 16 101/66 96 PG Care Time/CCT Total # of Minutes Spent Total Time Spent with Patient: Total time spent is greater than 50% in coordination of care (as documented) at patient's floor/unit and/or counseling patient: Coding Level of Care Code 07303 Subseq Hosp Care Lvl 3 Diagnoses Vertigo R42 AML (acute myeloblastic leukemia) C92.00 DVT prophylaxis Z29.9
[2020-06-15] MEDS: CHECK SCOPOLAMINE PATCH PLACEMENT SCH ×3 (00:31→15:43)
[2020-06-15] MEDS: medroxyPROGESTERone ACETATE 10 MG TAB PO SCH ×3 (00:31→20:32)
[2020-06-15 06:39] LABS: INR 1.1 (0.9-1.1); Prothrombin Time 11.5 Seconds (9.0-12.0)
[2020-06-15 07:04] LABS: Albumin Level 3.3 gm/dl (3.4-5.0); BUN Creatinine Ratio 23.4 (10-20); Calcium 9.4 mg/dl (8.5-10.1); Creatinine Clr Calc Pharmacy 132.2 ml/min; Est GFR (African American) 118.1; Est GFR (Non-African American) 101.9; Magnesium 1.7 mg/dl (1.8-2.4); Potassium 3.5 mmol/L (3.5-5.1)
[2020-06-15 07:07] LABS: Bilirubin,Total 1.4 mg/dl (0.2-1); Globulin 3.4 gm/dl (2.5-4.0); Phosphorus 4.3 mg/dl (2.5-4.9); Total Protein 6.7 gm/dl (6.4-8.2)
[2020-06-15 07:16] LABS: Mean Platelet Volume 7.2 fL (7.4-10.4); Platelet Count 23 K/uL (130-400)
[2020-06-15 07:18] LABS: Hematocrit (blood only) 22.3 % (37-47); Hemoglobin 7.8 g/dL (12.0-16.0); Mean Corpuscular Hemoglobin 32.4 pg (25-34); Mean Corpuscular Volume 92.5 fL (80-100); Platelet Estimate SIGNIFIC DECREASED (Normal); RDW Coefficient of Variation 17.9 % (11.5-14.5); RDW Standard Deviation 59.9 fL (36.4-46.3); Red Blood Count 2.41 M/uL (4.2-5.4); White Blood Count 0.43 K/uL (4.8-10.8)
[2020-06-15] MEDS: prednisoLONE acetate 1% OP SUSP 5 ML BTL OPB SCH ×2 (09:12→13:45)
[2020-06-15] MEDS: PYRIDOXINE HCL 50 MG TAB PO SCH ×3 (09:12→20:32)
[2020-06-15] MEDS: ACYCLOVIR 400 MG TAB PO SCH ×2 (09:12→20:32)
[2020-06-15] MEDS: FILGRASTIM 480 MCG/1.6 ML VIAL SQ SCH (09:15)
[2020-06-15] MEDS ORDERED: MECLIZINE HCL 25 MG TAB PO PRN (10:10)
[2020-06-15] MEDS: MAGNESIUM SULFATE / D5W 1 GM/100 ML BAG IV SCH ×2 (10:48→12:30)
[2020-06-15] MEDS: HEPARIN 100 UNIT/ML 5ML FLUSH FLUSH PRN (14:43)
--- NOTE | 2020-06-15 18:14 | Hospitalist Progress Note ---
Date of Service June 15, 2020 Assessment & Plan (1) AML (acute myeloblastic leukemia): Follows with Dr. Farida Vee at [facility] in [place]. Discussed on 06/13 & 06/14. 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 Received high-dose cytarabine on 06/09 for consolidation therapy. - Hold Sprycel & Cresemba per Dr. Vee - Can restart as outpatient. - Continue acyclovir - Started Neupogen 480 mcg SQ daily x 7 days on 06/[address] Vee as she became neutropenic. - Transfused 2 units of PRBCs on 06/14 for dropping hgb. - Counts still low today. Hgb bounced slightly, but not 2 full grams after 2 units PRBCs. More neutropenic. - Discussed with patient. She and her cannot drive, so she has no way to get back to her PCP or oncologist for routine count check this week. As such, we agreed that she should stay one more day to make sure counts stable/rebounding before discharge. I do have Dr. Vee's cell number. Call me for it if needed. - Possible discharge on Tuesday if counts stable and vertigo still improving. (2) Vertigo: MRI brain and auditory canals on 06/12 both normal. Based on time course and lack of past medical history less likely BPPV. No viral syndrome, nasal sydnie estion, ear fullness, or otitis media to suggest acute vestibular neuritis. - Suspect isavuconazonium as known side effect of this - (though <5% per UpToDate) - Could also be due to cytarabine per Dr. Vee. - Worked with PT on 06/13 with vestibular exercises without improvement. Meclizine didn't help. - Improved on 06/15! Enough that the patient thinks this may be tolerable if continues to improve a bit tomorrow. (3) DVT prophylaxis: SCDs - Will defer on heparin given platelets < 50k. Admission and Anticipated Discharge Date Admission Date: June 14, 2020 Subjective Vertigo is better today! Great! No major vertigo while not moving. Slightly more if she is moving around. Reports no fevers/chills, chest pain, shortness of breath, abdominal pain. Physical Exam Constitutional: WD/WN, vitals as above Eyes: EOM intact bilaterally; no conjunctival abnormality ENMT: external ear and nose normal, oropharynx normal Neck: trachea midline, no thyromegaly normal visual inspection Respiratory: normal respiratory effort, lungs clear to auscultation no respiratory distress Cardiovascular: RRR, no murmur, no edema Gastrointestinal (Abdomen): Inspection/Auscultation: abdomen normal to inspection; abdomen not distended Musculoskeletal: no cyanosis or clubbing, extremities motor strength 5/5 Skin: no rashes, warm and dry Neurologic: moves all extremities and awake Psychiatric: Orientation: alert, oriented to person and cooperative Results & Data Results & Data ([facility]) Vital Signs (Past 12 Hours) Vital Signs Temp Pulse Resp BP Pulse Ox 06/15/20 15:40 36.9 C 85 16 123/72 99 06/15/20 07:08 37.0 C 95 H 16 109/67 PG Care Time/CCT Total # of Minutes Spent Total Time Spent with Patient: Total time spent is greater than 50% in coordination of care (as documented) at patient's floor/unit and/or counseling patient: Coding Level of Care Code 86630 Subseq Hosp Care Lvl 2 Diagnoses AML (acute myeloblastic leukemia) C92.00 Vertigo R42 DVT prophylaxis Z29.9
[2020-06-16 06:51] LABS: Hematocrit (blood only) 19.5 % (37-47); Hemoglobin 6.9 g/dL (12.0-16.0); Mean Corpuscular Hemoglobin 32.2 pg (25-34); Mean Corpuscular Hgb Conc 35.4 g/dL (32-36); Mean Corpuscular Volume 91.1 fL (80-100); Mean Platelet Volume 7.3 fL (7.4-10.4); Platelet Count 10 K/uL (130-400); RDW Coefficient of Variation 16.6 % (11.5-14.5); RDW Standard Deviation 55.6 fL (36.4-46.3); Red Blood Count 2.14 M/uL (4.2-5.4); White Blood Count 0.18 K/uL (4.8-10.8)
[2020-06-16 07:05] LABS: BUN Creatinine Ratio 26.2 (10-20); Calcium 9.1 mg/dl (8.5-10.1); Creatinine Clr Calc Pharmacy 153.6 ml/min; Magnesium 1.7 mg/dl (1.8-2.4); Potassium 3.7 mmol/L (3.5-5.1)
[2020-06-16 07:18] LABS: Phosphorus 3.5 mg/dl (2.5-4.9)
[2020-06-16] MEDS: medroxyPROGESTERone ACETATE 10 MG TAB PO SCH ×2 (08:47→20:26)
[2020-06-16] MEDS: PYRIDOXINE HCL 50 MG TAB PO SCH ×3 (08:47→20:27)
[2020-06-16] MEDS: ACYCLOVIR 400 MG TAB PO SCH ×2 (08:47→20:26)
[2020-06-16] MEDS: FILGRASTIM 480 MCG/1.6 ML VIAL SQ SCH (08:49)
[2020-06-16] MEDS ORDERED: SODIUM CHLORIDE 0.9% 250 ML IV PRN (09:07)
[2020-06-16] MEDS: SULFAMETHOXAZOLE/TRIMETHOPRIM DS 800/160MG TAB PO SCH (11:01)
[2020-06-16] MEDS: VORICONAZOLE 200 MG TABLET PO SCH ×2 (11:01→20:26)
[2020-06-16] MEDS: levoFLOXacin 500 MG TAB PO SCH (11:01)
--- NOTE | 2020-06-16 11:05 | Hospitalist Progress Note ---
Date of Service June 16, 2020 Assessment & Plan (1) AML (acute myeloblastic leukemia): Follows with Dr. Farida Vee at [facility] in [place]. Discussed on 06/13 & 06/14. 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 Received high-dose cytarabine on 06/09 for consolidation therapy. - Hold Sprycel & Cresemba per Dr. Vee - Can restart as outpatient. - Continue acyclovir - Started Neupogen 480 mcg SQ daily x 7 days on 06/[address] Vee as she became neutropenic. - Transfused 2 units of PRBCs on 06/14 for dropping hgb. - Counts still low today. Hgb bounced slightly, but not 2 full grams after 2 units PRBCs. More neutropenic. - Given that numbers have not improved and patient is more pancytopenic today, will transfuse 2 PRBC, and 1 unit of platelets. Will also place on prophylactic antibiotics: levo for bacteria infection proph ylaxis, bactrim for PCP prophylaxis, voriconazole for aspergillus. D/W Dr. Vee. (2) Vertigo: MRI brain and auditory canals on 06/12 both normal. Based on time course and lack of past medical history less likely BPPV. No viral syndrome, nasal congestion, ear fullness, or otitis media to suggest acute vestibular neuritis. - Suspect isavuconazonium as known side effect of this - (though <5% per UpToDate) - Could also be due to cytarabine per Dr. Vee. - Worked with PT on 06/13 with vestibular exercises without improvement. Meclizine didn't help. - Improved on 06/15! Enough that the patient thinks this may be tolerable if continues to improve a bit tomorrow. (3) DVT prophylaxis: SCDs - Will defer on heparin given platelets < 50k. Admission and Anticipated Discharge Date Admission Date: June 14, 2020 Subjective 29 female reports feeling better today. She only has mild dizziness today. It is still present at rest and worsens with changing position but the intensity has improved. Patient denies any fever, chills, nausea, vomiting. Review of Systems Review of Systems: All systems reviewed & are unremarkable except as noted in HPI & below Physical Exam Physical Exam: Constitutional: WD/WN, vitals as above Eyes: EOM intact bilaterally; no conjunctival abnormality ENMT: external ear and nose normal, oropharynx normal Neck: trachea midline, no thyromegaly normal visual inspection Respiratory: normal respiratory effort, lungs clear to auscultation no respiratory distress Cardiovascular: RRR, no murmur, no edema Gastrointestinal (Abdomen): Inspection/Auscultation: abdomen normal to inspection; abdomen not distended Musculoskeletal: no cyanosis or clubbing, extremities motor strength 5/5 Skin: no rashes, warm and dry Neurologic: moves all extremities and awake Psychiatric: Orientation: alert, oriented to person and cooperative Results & Data Results & Data ([facility]) Vital Signs (Past 12 Hours) Vital Signs Temp Pulse Pulse Resp BP BP Pulse Ox 06/16/20 10:40 36.8 C 72 18 96/61 L 99 06/16/20 10:08 36.8 C 72 16 101/67 100 06/16/20 09:53 37.1 C 74 17 101/63 99 06/16/20 09:36 36.8 C 76 18 100/65 06/16/20 07:27 36.9 C 73 16 104/64 100 06/16/20 00:01 37 C 74 16 114/61 99 PG Care Time/CCT Total # of Minutes Spent Total Time Spent with Patient: Total time spent is greater than 50% in coordination of care (as documented) at patient's floor/unit and/or counseling patient: Coding Level of Care Code 34450 Subseq Hosp Care Lvl 3 Diagnoses AML (acute myeloblastic leukemia) C92.00 Vertigo R42 DVT prophylaxis Z29.9 Time Spent (min) 35
[2020-06-17] MEDS: HEPARIN 100 UNIT/ML 5ML FLUSH FLUSH PRN ×2 (05:16→15:37)
[2020-06-17 06:34] LABS: Platelet Count 20 K/uL (130-400)
[2020-06-17 06:53] LABS: Hematocrit (blood only) 22.2 % (37-47); Hemoglobin 7.9 g/dL (12.0-16.0); Mean Corpuscular Hemoglobin 31.3 pg (25-34); Mean Corpuscular Hgb Conc 35.6 g/dL (32-36); Mean Corpuscular Volume 88.1 fL (80-100); RDW Coefficient of Variation 15.6 % (11.5-14.5); RDW Standard Deviation 50.2 fL (36.4-46.3); Red Blood Count 2.52 M/uL (4.2-5.4); White Blood Count 0.33 K/uL (4.8-10.8)
[2020-06-17 06:55] LABS: Platelet Estimate SIGNIFIC DECREASED (Normal)
[2020-06-17 07:04] LABS: Est GFR (African American) 129.9; Potassium 3.5 mmol/L (3.5-5.1)
[2020-06-17 07:05] LABS: Albumin Level 3.2 gm/dl (3.4-5.0); BUN Creatinine Ratio 18.5 (10-20); Calcium 9.3 mg/dl (8.5-10.1); Creatinine Clr Calc Pharmacy 143.1 ml/min; Est GFR (Non-African American) 112.1
[2020-06-17 07:07] LABS: Albumin Globulin Ratio 0.9 (0.9-2); Bilirubin,Total 1.4 mg/dl (0.2-1); Globulin 3.6 gm/dl (2.5-4.0); Total Protein 6.8 gm/dl (6.4-8.2)
[2020-06-17] MEDS: SULFAMETHOXAZOLE/TRIMETHOPRIM DS 800/160MG TAB PO SCH (08:30)
[2020-06-17] MEDS: medroxyPROGESTERone ACETATE 10 MG TAB PO SCH ×2 (08:30→20:16)
[2020-06-17] MEDS: ACYCLOVIR 400 MG TAB PO SCH ×2 (08:31→20:15)
[2020-06-17] MEDS: VORICONAZOLE 200 MG TABLET PO SCH ×2 (08:31→20:14)
[2020-06-17] MEDS: PYRIDOXINE HCL 50 MG TAB PO SCH ×3 (08:31→20:15)
[2020-06-17] MEDS: FILGRASTIM 480 MCG/1.6 ML VIAL SQ SCH (08:35)
[2020-06-17] MEDS: levoFLOXacin 500 MG TAB PO SCH (10:16)
[2020-06-17 16:00] LABS: Hematocrit (blood only) 21.5 % (37-47); Hemoglobin 7.6 g/dL (12.0-16.0); Platelet Count 12 K/uL (130-400)
[2020-06-17] MEDS ORDERED: SODIUM CHLORIDE 0.9% 250 ML IV PRN (16:44)
--- NOTE | 2020-06-17 20:51 | Progress Note ---
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
--- NOTE | 2020-06-17 22:41 | Hospitalist Progress Note ---
Date of Service June 17, 2020 Assessment & Plan (1) AML (acute myeloblastic leukemia): Follows with Dr. Farida Vee at [facility] in [place]. Discussed on 06/13 & 06/14. 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 Received high-dose cytarabine on 06/09 for consolidation therapy. - Hold Sprycel & Cresemba per Dr. Vee - Can restart as outpatient. - Continue acyclovir - Started Neupogen 480 mcg SQ daily x 7 days on 06/[address] Vee as she became neutropenic. - Transfused 2 units of PRBCs on 06/14 for dropping hgb. - Counts still low today. Hgb bounced slightly, but not 2 full grams after 2 units PRBCs. More neutropenic. - Given that numbers have not improved as much as i had hoped, will repeat cbc in the afternoon. If remains low, will transfuse 2 PRBC, and 1 unit of platelets. Will also continue on prophylactic antibiotics: levo for bacteria infection prophylaxis, bactrim for PCP prophylaxis, voriconazole for aspergillus. will consult with automobile repair service estimator in regards to heavy menstrual bleeding. (2) Vertigo: MRI brain and auditory canals on 06/12 both normal. Based on time course and lack of past medical history less likely BPPV. No viral syndrome, nasal congestion, ear fullness, or otitis media to suggest acute vestibular neuritis. - Suspect isavuconazonium as known side effect of this - (though <5% per UpToDate) - Could also be due to cytarabine per Dr. Vee. - Worked with PT on 06/13 with vestibular exercises without improvement. Meclizine didn't help. - Improved on 06/17! continues to improve (3) DVT prophylaxis: SCDs - Will defer on heparin given platelets < 50k. Admission and Anticipated Discharge Date Admission Date: June 14, 2020 Subjective 29 yo female reports having a heavy mentraul period this month and it has been ongoing for about 21 days. Today she notices clots. Review of Systems Review of Systems: All systems reviewed & are unremarkable except as noted in HPI & below Physical Exam Physical Exam: Constitutional: WD/WN, vitals as above Eyes: EOM intact bilaterally; no conjunctival abnormality ENMT: external ear and nose normal, oropharynx normal Neck: trachea midline, no thyromegaly normal visual inspection Respiratory: normal respiratory effort, lungs clear to auscultation no respiratory distress Cardiovascular: RRR, no murmur, no edema Gastrointestinal (Abdomen): Inspection/Auscultation: abdomen normal to inspection; abdomen not distended Musculoskeletal: no cyanosis or clubbing, extremities motor strength 5/5 Skin: no rashes, warm and dry Neurologic: moves all extremities and awake Psychiatric: Orientation: alert, oriented to person and cooperative Results & Data Results & Data ([facility]) Vital Signs (Past 12 Hours) Vital Signs Temp Pulse Pulse Resp BP BP Pulse Ox 06/17/20 22:22 37.1 C 83 16 103/64 99 06/17/20 21:23 93 H 14 100 06/17/20 21:22 37.1 C 84 14 130/77 99 06/17/20 20:53 37.4 C 94 H 18 119/78 93 06/17/20 20:38 37.2 C 82 18 125/80 100 06/17/20 20:18 37.3 C 88 18 123/78 99 06/17/20 16:20 36.8 C 76 16 114/67 98 PG Care Time/CCT Total # of Minutes Spent Total Time Spent with Patient: Total time spent is greater than 50% in coordination of care (as documented) at patient's floor/unit and/or counseling patient: Coding Level of Care Code 16516 Subseq Hosp Care Lvl 3 Diagnoses AML (acute myeloblastic leukemia) C92.00 Vertigo R42 DVT prophylaxis Z29.9 Time Spent (min) 35
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
--- NOTE | 2020-06-18 07:43 | Ultrasound Report ---
PELVIC ULTRASOUND, TRANSABDOMINAL HISTORY: Irregular vaginal bleeding. COMPARISON: Abdomen and pelvis CT 04/16/2020. FINDINGS: The patient deferred transvaginal scanning. Uterus: 9.7 x 4.4 x 6.0 cm. No uterine masses. Endometrial stripe: Abnormally thickened and heterogeneous endometrium measuring 1.9 cm. Right ovary: Normal in size and demonstrates normal color flow. There is a complex 3.8 x 3.2 x 2.5 cm lesion within the right adnexa. This favors a complex/hemorrhagic cyst. Left ovary: Normal in size and demonstrates normal color flow. Miscellaneous:There is a 2.8 x 1.5 cm intraluminal nodule within the posterior bladder. This appears to be adherent to the bladder wall and could represent a bladder mass. IMPRESSION: 1. A 2.8 x 1.5 cm intraluminal nodule within the posterior bladder which may be adherent to the poste rior bladder wall. Follow-up urology consultation to exclude the possibility of a bladder lesion/poly p. 2. Abnormally thickened and heterogeneous endometrium measuring 1.9 cm. 3. A 3.8 cm complex right ovarian cyst. Consider follow-up pelvic ultrasound in 2-3 months to ensure resolution. ACT 112: Positive. There are findings on this exam that require communication between the performing entity and the patient following Patient Test Result Information Act ([place] Act 112) guidelines. Electronically signed by: Elías Damon M.D. 06/18/2020 7:41 AM
[2020-06-18] MEDS: SULFAMETHOXAZOLE/TRIMETHOPRIM DS 800/160MG TAB PO SCH (09:05)
[2020-06-18] MEDS: ACYCLOVIR 400 MG TAB PO SCH (09:05)
[2020-06-18] MEDS: VORICONAZOLE 200 MG TABLET PO SCH (09:05)
[2020-06-18] MEDS: PYRIDOXINE HCL 50 MG TAB PO SCH ×2 (09:06→13:48)
[2020-06-18] MEDS: medroxyPROGESTERone ACETATE 10 MG TAB PO SCH (09:06)
[2020-06-18] MEDS: FILGRASTIM 480 MCG/1.6 ML VIAL SQ SCH (09:12)
[2020-06-18 11:51] LABS: BUN Creatinine Ratio 15.6 (10-20); Calcium 9.7 mg/dl (8.5-10.1); Creatinine Clr Calc Pharmacy 139.3 ml/min; Est GFR (African American) 125.7; Est GFR (Non-African American) 108.5; Potassium 3.8 mmol/L (3.5-5.1)
[2020-06-18] MEDS: levoFLOXacin 500 MG TAB PO SCH (11:52)
[2020-06-18 12:10] LABS: Hemoglobin 9.2 g/dL (12.0-16.0); Mean Corpuscular Hemoglobin 31.5 pg (25-34); Mean Corpuscular Hgb Conc 36.8 g/dL (32-36); Mean Corpuscular Volume 85.6 fL (80-100); Platelet Count 16 K/uL (130-400); RDW Coefficient of Variation 14.6 % (11.5-14.5); RDW Standard Deviation 45.8 fL (36.4-46.3); Red Blood Count 2.92 M/uL (4.2-5.4); White Blood Count 0.48 K/uL (4.8-10.8)
[2020-06-18 12:14] LABS: Platelet Estimate SIGNIFIC DECREASED (Normal)
[2020-06-18] MEDS: HEPARIN 100 UNIT/ML 5ML FLUSH FLUSH PRN (16:43)
== END 2020-06-18 18:11 | disposition home or self-care (01) | DRG 149 ==
LOC: ED 13:41 → 3E 13:41 → SUATTDRO 19:43 → 3E 20:54 → SUATTDRO 06-14 18:30

== ENCOUNTER 2022-07-08 15:54 | Inpatient (IN) ==
[2022-07-08] MEDS ORDERED: AMOXICILLIN/CLAVULANATE 875 MG TAB PO ONE (19:31)
--- NOTE | 2022-07-08 20:51 | CT Scan Report ---
CT pelvis wo con HISTORY: abscess left medial buttock TECHNIQUE: Multiaxial CT images of the pelvis were performed without contrast. Sagittal and coronal r eformations were performed at the workstation by the radiologist. COMPARISON STUDY: Abdomen and pelvis CT 04/04/2022. FINDINGS: There is left perianal/gluteal subcutaneous infiltration with a punctate focus of subcutane ous gas. Therefore, this could represent a small fistula or developing abscess at this location. Of n ote, the lack of intravenous contrast results in difficult evaluation for a loculated fluid collectio n. However, no definite loculated fluid collections identified. The bladder, uterus, and adnexa are w ithin normal limits. No pelvic free fluid. The visualized loops of bowel show no wall thickening or o bstruction. Normal appendix. No pelvic or inguinal lymphadenopathy. No suspicious lytic or blastic os seous lesions. IMPRESSION: There is left perianal/gluteal subcutaneous infiltration with a punctate focus of subcutaneous gas. T herefore, this could represent a small fistula or developing abscess at this location. Of note, the l ack of intravenous contrast results in difficult evaluation for a loculated fluid collection. However , no definite loculated fluid collections identified. ACT 112: Negative or not required by law. Electronically signed by: Elías Damon M.D. 07/08/2022 8:50 PM
[2022-07-08 20:58] LABS: Alanine Aminotransferase 43 U/L (7-52); Albumin Level 3.2 gm/dl (3.4-5.0); Alkaline Phosphatase 66 U/L (34-104); Anion Gap 7 (3-11); Aspartate Aminotransferase 20 U/L (13-39); BUN Creatinine Ratio 18.8 (10-20); Bilirubin,Total 0.8 mg/dl (0.2-1.0); Blood Urea Nitrogen 13 mg/dl (6-23); Calcium 9.2 mg/dl (8.5-10.1); Carbon Dioxide 27 mmol/L (21-32); Chloride 106 mmol/L (98-107); Est GFR (African American) 135.4 ml/min; Est GFR (Non-African American) 116.8 ml/min; Globulin 3.1 gm/dl (2.5-4.0); Glucose 101 mg/dl (70-99(Fasting)); Potassium 3.9 mmol/L (3.5-5.1); Sodium 140 mmol/L (136-145); Total Protein 6.3 gm/dl (6.0-8.3)
[2022-07-08 21:11] LABS: Hematocrit (blood only) 17.2 % (34.1-44.9); Hemoglobin 5.8 g/dl (12.0-16.0); Mean Corpuscular Hemoglobin 34.9 pg (25.0-34.0); Mean Corpuscular Hgb Conc 33.7 g/dL (32.0-36.0); Mean Corpuscular Volume 103.6 fL (80.0-100.0); Mean Platelet Volume 12.2 fL (9.4-12.3); Nucleated RBC # (auto) 0.02 K/uL (0-0); Nucleated RBC % (auto) 0.9 %; Platelet Count 64 K/uL (130-400); RDW Coefficient of Variation 17.5 % (11.5-14.5); RDW Standard Deviation 66.1 fL (36.4-46.3); Red Blood Count 1.66 M/uL (3.93-5.22); White Blood Count 2.19 K/ul (4.8-10.8)
[2022-07-08 21:43] LABS: Hypochromasia Present; Immature Granulocytes # (auto) 0.02 K/uL (0.00-0.02); Immature Granulocytes % (auto) 0.9 %; Lymphocytes # (auto) 0.25 K/uL (1.2-3.4); Lymphocytes % (auto) 11.4 %; Monocytes # (auto) 0.17 K/uL (0.24-0.82); Monocytes % (auto) 7.8 %; Neutrophils # (auto) 1.75 K/uL (1.4-6.5); Neutrophils % (auto) 79.9 %; Polychromasia 1+
--- NOTE | 2022-07-08 21:51 | Emergency Department Note ---
History of Present Illness General Chief complaint: Pilonidal Cyst Stated complaint: Pilonidal cyst, CANCER PT, Time Seen by Provider: 07/08/22 19:10 Source: patient Mode of arrival: ambulatory Limitations: no limitations History of Present Illness Provider complaint: Abscess to buttock Maximum Pain Intensity: 10 This is a 31-year-old female presents emergency department due to concern for evolving pain and possible abscess to her left buttock. Patient states she first began noticing what she thought was just a small pimple to the area last week. She states over the course of several days it became larger, harder, and more painful. She states then a few days ago it seemed to open up and began draining on its own. She states she has continued to pace frequently throughout the day to try and keep it clean and put gauze in that area to absorb the discharge. She denies any fevers or chills or other systemic symptoms. Patient does have known AML and is getting ongoing chemotherapy. She states her last dose was 1 week ago. She follows with Juliane for her cancer care. Home Medications Medication Instructions Recorded Confirmed Type acyclovir 400 mg tablet 400 mg PO BID 07/08/22 07/08/22 History citalopram 20 mg tablet 20 mg PO DAILY 07/08/22 07/08/22 History cyclobenzaprine 10 mg tablet 10 mg PO TID 07/08/22 07/08/22 History gabapentin 100 mg capsule 200 mg PO TID 07/08/22 07/08/22 History hydromorphone 2 mg tablet 2 mg PO Q4H PRN Pain 07/08/22 07/08/22 History isavuconazonium sulfate 186 mg 372 mg PO DAILY 07/08/22 07/08/22 History capsule (Cresemba) levothyroxine 50 mcg tablet 50 mcg PO DAILY 07/08/22 07/08/22 History loperamide 2 mg capsule 2 mg PO Q4H PRN Diarrhea 07/08/22 07/08/22 History memantine 5 mg tablet 5 mg PO DIRECTED 07/08/22 07/08/22 History ondansetron HCl 8 mg tablet 8 mg PO TID PRN Nausea 07/08/22 07/08/22 History oxycodone 10 mg tablet 10 mg PO Q4 PRN .Pain 7-10 07/08/22 07/08/22 History oxycodone 30 mg tablet,crush 30 mg PO Q12 07/08/22 07/08/22 History resistant,extended release 12 hr (OxyContin) ponatinib 15 mg tablet (Iclusig) 15 mg PO DAILY 07/08/22 07/08/22 History venetoclax 100 mg tablet 200 mg PO DAILY 07/08/22 07/08/22 History (Venclexta) Allergies Allergy/AdvReac Type Severity Reaction Status Date / Time No Known Allergies Allergy Verified 07/08/22 22:35 Past Med/Surg History Medical History AML (acute myeloblastic leukemia) Bone marrow depression CML (chronic myelocytic leukemia) Elevated lactic acid level Elevated troponin Generalized pain History of cancer Lab test negative for COVID-19 virus Neutropenic fever No pertinent past medical history Thrombocytopenia Surgical History History of tonsillectomy Family History Other Adopted Social History Smoking Status: Never smoker Tobacco Type: Cigarettes Second Hand Exposure: No; Hx Alcohol Use: No Hx Substance Use: No Preferred Language: B[place] Communication Ability: Effective Inventory Auditor Required: No Beliefs That Will Affect Care: None marital status: Current Living Situation: Spouse Current Living Situation Comment: lives w/ current occupational status: unemployed Feels Safe at Home: Yes Childhood Exposure to Second-Hand Smoke: No caffeine: No during the past year weight has: increased > 10 lbs Dental Care, Regularly: No Physical Activity Frequency: Daily Seatbelt Use: always Sunscreen Use: No Assistive Devices: Cane, Walker and Wheelchair Review of Systems A total of 10 systems reviewed and were otherwise negative All systems reviewed & are unremarkable except as noted in HPI & below Physical Exam Vital Signs Vital Signs - 24 hr 07/08/22 16:48 07/08/22 19:07 07/08/22 21:00 Temperature 36.0 C L Temperature Source Temporal Artery Scan Pulse Rate 124 H Pulse Rate [Left Finger] 84 97 H Pulse Rhythm [Left Finger] Regular Regular Pulse Strength [Left Finger] Normal Normal Respiratory Rate 20 16 20 Respiratory Effort / Characteristics Non-Labored Non-Labored Respiratory Depth Normal Normal Normal Respiratory Pattern Regular Blood Pressure 132/83 Blood Pressure [Right Arm] 119/73 116/64 Blood Pressure Mean 99 Blood Pressure Mean [Right Arm] 88 81 Pulse Oximetry 97 97 97 Oxygen Delivery Method Room Air Room Air Room Air Sepsis Recent Fever Within 48 Hours No Sepsis New/Unexplained Change in Mental Status N/A Sepsis Action Taken by Nursing No Action Required 07/08/22 22:26 07/09/22 00:00 Temperature 36.8 C 37.2 C Temperature Source Oral Oral Pulse Rate Pulse Rate [Left Finger] 98 H 94 H Pulse Rhythm [Left Finger] Regular Regular Pulse Strength [Left Finger] Normal Normal Respiratory Rate 16 18 Respiratory Effort / Characteristics Non-Labored Non-Labored Respiratory Depth Normal Normal Respiratory Pattern Regular Regular Blood Pressure Blood Pressure [Right Arm] 112/57 L 102/58 L Blood Pressure Mean Blood Pressure Mean [Right Arm] 75 72 Pulse Oximetry 96 98 Oxygen Delivery Method Room Air Room Air Sepsis Recent Fever Within 48 Hours Sepsis New/Unexplained Change in Mental Status Sepsis Action Taken by Nursing GENERAL: alert, well appearing, well nourished, no distress, non-toxic, alopecia EYE EXAM: normal conjunctiva, PERRL and EOM's grossly intact OROPHARYNX: no exudate, no erythema, lips, buccal mucosa, and tongue normal and mucous membranes are moist NECK: supple, no nuchal rigidity, no adenopathy, non-tender LUNGS: Clear to auscultation. Normal chest wall mechanics, no w/r/r HEART: no murmurs, S1 normal and S2 normal ABDOMEN: abdomen soft, non-tender, normo-active bowel sounds, no masses, no rebound or guarding. RECTAL: Perianal abscess noted to the left buttock with significant area of induration central area with active drainage that can still be expressed, swab obtained for culture, no obvious fistula to anus, no active bleeding BACK: Back is symmetrical on inspection and there is no deformity, no midline tenderness, no CVA tenderness. SKIN: no rashes and no bruising UPPER EXTREMITIES: upper extremities are grossly normal. FROM, nml pulses b/l. LOWER EXTREMITIES: No pitting edema. FROM, nml pulses b/l. NEURO EXAM: Normal sensorium, cranial nerves II-XII grossly intact, normal speech, no gross weakness of arms, no gross weakness of legs. Gross sensation intact. Course Course 2149: Patient updated on results. Patient states she did have blood work done on Tuesday which was routine, she does not know any of the results. 2219: Discussed with Dr. Mcginnis, heme/onc at [facility]. Recommends admission with transfusion and IV antibiotics zosyn and flagyl. They have no available beds for now but will add her to the list for possible transfers,and will follow-up daily. Administered Medications Discontinued Medications Acyclovir (Acyclovir 400 Mg Tab) 400 mg PO BID ELANA Stop: 08/08/22 08:59 Last Admin: 07/10/22 08:30 Dose: 400 mg Documented By: Admin: 07/09/22 22:47 Dose: 400 mg Documented By: Admin: 07/09/22 10:25 Dose: 400 mg Documented By: ARV Amoxicillin/Clavulanate Potassium (Amoxicillin/Clavulanate 875 Mg Tab) 1 tab PO NOW ONE Stop: 07/08/22 19:32 Last Admin: 07/08/22 19:38 Dose: 1 tab Documented By: JAI Citalopram Hydrobromide (Citalopram 20 Mg Tab) 20 mg PO DAILY ELANA Stop: 08/08/22 08:59 Last Admin: 07/10/22 08:29 Dose: 20 mg Documented By: Admin: 07/09/22 10:25 Dose: 20 mg Documented By: ARV Gabapentin (Gabapentin 100 Mg Cap) 200 mg PO TID ELANA Stop: 08/08/22 08:59 Last Admin: 07/10/22 13:55 Dose: 200 mg Documented By: Admin: 07/10/22 08:29 Dose: 200 mg Documented By: Admin: 07/09/22 22:47 Dose: 200 mg Documented By: Admin: 07/09/22 13:26 Dose: 200 mg Documented By: Admin: 07/09/22 10:25 Dose: 200 mg Documented By: ARV Hydromorphone HCl (Hydromorphone Inj 0.5 Mg/0.5 Ml Syr) 0.25 mg IV NOW STA Stop: 07/09/22 03:31 Last Admin: 07/09/22 03:52 Dose: 0.25 mg Documented By: ARR Piperacillin Sod/Tazobactam Sod (Zosyn) 4.5 gm in 120 mls @ 240 mls/hr IV NOW ONE Stop: 07/08/22 22:49 Last Infusion: 07/09/22 00:45 Dose: 0 mls/hr Documented By: Admin: 07/08/22 23:31 Dose: 240 mls/hr Documented By: JAI Metronidazole (Flagyl) 500 mg in 100 mls @ 100 mls/hr IV NOW STA Stop: 07/08/22 23:19 Last Admin: 07/09/22 01:22 Dose: Not Given Documented By: ARR Vancomycin HCl 2,250 mg/ (Sodium Chloride) 545 mls @ 200 mls/hr IV 2330 ONE Stop: 07/09/22 02:13 Last Infusion: 07/09/22 03:06 Dose: 0 mls/hr Documented By: Admin: 07/08/22 23:41 Dose: 200 mls/hr Documented By: MONET Vancomycin HCl 1,500 mg/ (Sodium Chloride) 530 mls @ 200 mls/hr IV Q12H ELANA Stop: 07/16/22 09:59 Last Admin: 07/10/22 10:50 Dose: 200 mls/hr Documented By: Infusion: 07/10/22 01:32 Dose: 0 mls/hr Documented By: Admin: 07/09/22 22:46 Dose: 200 mls/hr Documented By: Infusion: 07/09/22 13:36 Dose: 0 mls/hr Documented By: Admin: 07/09/22 10:26 Dose: 200 mls/hr Documented By: ARV Piperacillin Sod/Tazobactam (Sod 4.5 gm/ Dextrose) 120 mls @ 30 mls/hr IV Q8H ELANA; Protocol Stop: 07/16/22 03:59 Last Infusion: 07/10/22 17:56 Dose: 0 mls/hr Documented By: Admin: 07/10/22 13:55 Dose: 30 mls/hr Documented By: Infusion: 07/10/22 08:32 Dose: 0 mls/hr Documented By: Admin: 07/10/22 03:53 Dose: 30 mls/hr Documented By: Infusion: 07/10/22 00:07 Dose: 0 mls/hr Documented By: Admin: 07/09/22 19:38 Dose: 30 mls/hr Documented By: Infusion: 07/09/22 19:05 Dose: 0 mls/hr Documented By: Admin: 07/09/22 13:26 Dose: 30 mls/hr Documented By: Infusion: 07/09/22 07:50 Dose: 0 mls/hr Documented By: Admin: 07/09/22 03:54 Dose: 30 mls/hr Documented By: ARR Metronidazole (Flagyl) 500 mg in 100 mls @ 100 mls/hr IV Q8H ELANA Stop: 07/16/22 01:59 Last Infusion: 07/10/22 18:53 Dose: 0 mls/hr Documented By: Admin: 07/10/22 17:53 Dose: 100 mls/hr Documented By: Infusion: 07/10/22 11:51 Dose: 0 mls/hr Documented By: Admin: 07/10/22 10:46 Dose: 100 mls/hr Documented By: Infusion: 07/10/22 02:40 Dose: 0 mls/hr Documented By: Admin: 07/10/22 01:40 Dose: 100 mls/hr Documented By: Infusion: 07/09/22 21:10 Dose: 0 mls/hr Documented By: Admin: 07/09/22 19:05 Dose: 100 mls/hr Documented By: Infusion: 07/09/22 12:45 Dose: 0 mls/hr Documented By: Admin: 07/09/22 10:26 Dose: 100 mls/hr Documented By: Infusion: 07/09/22 03:54 Dose: 0 mls/hr Documented By: Admin: 07/09/22 02:56 Dose: 100 mls/hr Documented By: ARR Potassium Chloride/Sodium Chloride (1/2 Nss + 20meq Kcl 1000ml) 20 meq in 1,000 mls @ 80 mls/hr IV .[id number] ELANA; Protocol Stop: 08/09/22 10:44 Last Admin: 07/10/22 10:46 Dose: 80 mls/hr Documented By: ARV Isavuconazonium Sulfate (Isavuconazonium Sulfate 186 Mg Cap) 372 mg PO Q24H ELANA Stop: 08/09/22 10:59 Last Admin: 07/10/22 10:51 Dose: 372 mg Documented By: ARV Levothyroxine Sodium (Levothyroxine Sodium 50 Mcg Tablet) 50 mcg PO DAILYBB ELANA Stop: 08/08/22 06:29 Last Admin: 07/10/22 05:37 Dose: 50 mcg Documented By: Admin: 07/09/22 05:49 Dose: 50 mcg Documented By: ARR Memantine (Memantine Hcl 5 Mg Tab) 10 mg PO Q12H ELANA Stop: 08/08/22 20:59 Last Admin: 07/10/22 10:52 Dose: 10 mg Documented By: Admin: 07/09/22 22:47 Dose: 10 mg Documented By: ARR Miscellaneous (Cresemba - Order Awaiting Action) 1 each N/A QS ELANA Stop: 08/08/22 07:59 Last Admin: 07/09/22 08:47 Dose: Not Given Documented By: ARV Miscellaneous (Namenda - Order Awaiting Action) 1 each N/A QS ELANA Stop: 08/08/22 07:59 Last Admin: 07/09/22 08:47 Dose: Not Given Documented By: ARV Miscellaneous (Ponatinib [Iclusig] - Order Awaiting Action) 1 each N/A QS ELANA Stop: 08/08/22 03:59 Last Admin: 07/09/22 08:47 Dose: Not Given Documented By: Admin: 07/09/22 03:57 Dose: Not Given Documented By: ARR Miscellaneous (Venetoclax [Venclexta] - Order Awaiting Action) 1 each N/A QS ELANA Stop: 08/08/22 07:59 Last Admin: 07/09/22 08:47 Dose: Not Given Documented By: ARV Oxycodone HCl (Oxycodone Hcl Ir 5 Mg Tab (Immediate Release)) 10 mg PO Q4H PRN PRN Reason: Pain 7-10 Stop: 07/22/22 23:14 Last Admin: 07/09/22 07:33 Dose: 10 mg Documented By: Admin: 07/09/22 01:57 Dose: 10 mg Documented By: CELENA Oxycodone HCl (Oxycodone Hcl 15 Mg Tabcr (Oxycontin)) 30 mg PO Q12 ELANA Stop: 07/23/22 08:59 Last Admin: 07/10/22 08:29 Dose: 30 mg Documented By: Admin: 07/09/22 22:47 Dose: 30 mg Documented By: Admin: 07/09/22 10:25 Dose: 30 mg Documented By: NICOLE Ponatinib (Ponatinib Hcl) 1 each PO Q24H ELANA Stop: 08/09/22 10:59 Last Admin: 07/10/22 10:53 Dose: 1 each Documented By: NICOLE Co-signed By: DISHA Venetoclax (Venetoclax) 2 each PO Q24H ELANA Stop: 08/08/22 22:59 Last Admin: 07/09/22 22:57 Dose: 2 each Documented By: ARR Co-signed By: JOE Critical Care Time Critical Care Time: Yes Total Critical Care Time: 41 Critical care of 41 min performed to assess and manage high likelihood of life-threatening pancytopenia and active infection, involving labs and imaging performed with assessment to evaluate pancytopenia and active infection diagnosis with frequent reassessment. This time includes bedside time, treatment discussions with patient/family/consultants, documentation time and excludes procedure time. Medical Decision Making Differential Diagnosis Perianal abscess, perirectal abscess, fistula, pilonidal cyst, STI, cellulitis, as well as others were considered Medical Records Attestation: I reviewed the patient's medical records. Home Medications Current Medication List: was personally reviewed by me Laboratory Data Attestation: I reviewed the patient's lab results. Result diagrams: 07/10/22 05:34 07/10/22 05:34 Lab Results 07/08/22 07/08/22 07/08/22 Range/Units 20:23 20:23 20:23 WBC 2.19 L (4.8-10.8) K/ul RBC 1.66 L (3.93-5.22) M/uL Hgb 5.8 L* (12.0-16.0) g/dl Hct 17.2 L* (34.1-44.9) % MCV 103.6 H (80.0-100.0) fL MCH 34.9 H (25.0-34.0) pg MCHC 33.7 (32.0-36.0) g/dL RDW Std Deviation 66.1 H (36.4-46.3) fL RDW Coeff of Brock 17.5 H (11.5-14.5) % Plt Count 64 L (130-400) K/uL MPV 12.2 (9.4-12.3) fL Immature Gran % (Auto) 0.9 % Neut % (Auto) 79.9 % Lymph % (Auto) 11.4 % Dundy % (Auto) 7.8 % Eos % (Auto) 0.0 % Baso % (Auto) 0.0 % Neut # (Auto) 1.75 (1.4-6.5) K/uL Lymph # (Auto) 0.25 L (1.2-3.4) K/uL Dundy # (Auto) 0.17 L (0.24-0.82) K/uL Eos # (Auto) 0.00 (0-0.50) K/uL Baso # (Auto) 0.00 (0-0.2) K/uL Immature Gran # (Auto) 0.02 (0.00-0.02) K/uL Absolute Nucleated RBC 0.02 H (0-0) K/uL Nucleated RBC % (auto) 0.9 % Polychromasia 1+ Hypochromasia Present Sodium 140 (136-145) mmol/L Potassium 3.9 (3.5-5.1) mmol/L Chloride 106 (98-107) mmol/L Carbon Dioxide 27 (21-32) mmol/L Anion Gap 7 (3-11) BUN 13 (6-23) mg/dl Creatinine 0.69 (0.6-1.2) mg/dl Est Cr Clr Drug Dosing Not Reportable Est GFR ( Amer) 135.4 ml/min Est GFR (Non-Af Amer) 116.8 ml/min BUN/Creatinine Ratio 18.8 (10-20) Glucose 101 H (70-99(Fasting)) mg/dl Calcium 9.2 (8.5-10.1) mg/dl Total Bilirubin 0.8 (0.2-1.0) mg/dl AST 20 (13-39) U/L ALT 43 (7-52) U/L Alkaline Phosphatase 66 (34-104) U/L Total Protein 6.3 (6.0-8.3) gm/dl Albumin 3.2 L (3.4-5.0) gm/dl Globulin 3.1 (2.5-4.0) gm/dl Albumin/Globulin Ratio 1.0 (0.9-2) Procalcitonin 0.99 H (0-0.5) ng/ml SARS-CoV-2 (PCR) (Negative) Influenza Type A (PCR) (Neg) Influenza Type B (PCR) (Neg) RSV (RT-PCR) (Neg) Blood Type Antibody Screen Crossmatch 07/08/22 07/08/22 Range/Units 22:08 22:37 WBC (4.8-10.8) K/ul RBC (3.93-5.22) M/uL Hgb (12.0-16.0) g/dl Hct (34.1-44.9) % MCV (80.0-100.0) fL MCH (25.0-34.0) pg MCHC (32.0-36.0) g/dL RDW Std Deviation (36.4-46.3) fL RDW Coeff of Brock (11.5-14.5) % Plt Count (130-400) K/uL MPV (9.4-12.3) fL Immature Gran % (Auto) % Neut % (Auto) % Lymph % (Auto) % Dundy % (Auto) % Eos % (Auto) % Baso % (Auto) % Neut # (Auto) (1.4-6.5) K/uL Lymph # (Auto) (1.2-3.4) K/uL Dundy # (Auto) (0.24-0.82) K/uL Eos # (Auto) (0-0.50) K/uL Baso # (Auto) (0-0.2) K/uL Immature Gran # (Auto) (0.00-0.02) K/uL Absolute Nucleated RBC (0-0) K/uL Nucleated RBC % (auto) % Polychromasia Hypochromasia Sodium (136-145) mmol/L Potassium (3.5-5.1) mmol/L Chloride (98-107) mmol/L Carbon Dioxide (21-32) mmol/L Anion Gap (3-11) BUN (6-23) mg/dl Creatinine (0.6-1.2) mg/dl Est Cr Clr Drug Dosing Est GFR ( Amer) ml/min Est GFR (Non-Af Amer) ml/min BUN/Creatinine Ratio (10-20) Glucose (70-99(Fasting)) mg/dl Calcium (8.5-10.1) mg/dl Total Bilirubin (0.2-1.0) mg/dl AST (13-39) U/L ALT (7-52) U/L Alkaline Phosphatase (34-104) U/L Total Protein (6.0-8.3) gm/dl Albumin (3.4-5.0) gm/dl Globulin (2.5-4.0) gm/dl Albumin/Globulin Ratio (0.9-2) Procalcitonin (0-0.5) ng/ml SARS-CoV-2 (PCR) NEGATIVE (Negative) Influenza Type A (PCR) Negative (Neg) Influenza Type B (PCR) Negative (Neg) RSV (RT-PCR) Negative (Neg) Blood Type A Positive Antibody Screen NEGATIVE Crossmatch See Detail Imaging Data Radiologist's Impression: Pelvis CT 07/08/22 19:31 CT pelvis wo con HISTORY: abscess left medial buttock TECHNIQUE: Multiaxial CT images of the pelvis were performed without contrast. Sagittal and coronal reformations were performed at the workstation by the radiologist. COMPARISON STUDY: Abdomen and pelvis CT 04/04/2022. FINDINGS: There is left perianal/gluteal subcutaneous infiltration with a punctate focus of subcutaneous gas. Therefore, this could represent a small fistula or developing abscess at this location. Of note, the lack of intravenous contrast results in difficult evaluation for a loculated fluid collection. However, no definite loculated fluid collections identified. The bladder, uterus, and adnexa are within normal limits. No pelvic free fluid. The visualized loops of bowel show no wall thickening or obstruction. Normal appendix. No pelvic or inguinal lymphadenopathy. No suspicious lytic or blastic osseous lesions. IMPRESSION: There is left perianal/gluteal subcutaneous infiltration with a punctate focus of subcutaneous gas. Therefore, this could represent a small fistula or developing abscess at this location. Of note, the lack of intravenous contrast results in difficult evaluation for a loculated fluid collection. However, no definite loculated fluid collections identified. ACT 112: Negative or not required by law. Electronically signed by: Elías Damon M.D. 07/08/2022 8:50 PM MDM Narrative An order was placed for continuous cardiac monitoring. The monitor shows a rate of _83_ with _normal sinus__ rhythm. This is a 31-year-old female with a complicated past medical history including AML still actively being treated with accompanying prior brain mets and surgery who presents due to concern for infection near her rectum. Patient found to have a perianal abscess that had spontaneously ruptured and was still actively draining prior to my evaluation. Patient had no other systemic symptoms. CT reassuring without any evidence of obvious fistula. Patient's labs with significant pancytopenia as well as elevated procalcitonin. Case discussed with Juliane velazquez on-call and we did compare leighton's labs to her labs the beginning of the week. Due to significant drop in her hemoglobin and immunocompromise status, we did discuss inpatient treatment and transfer. They had no available beds at that time to except transfer and recommended hospitalization here for transfusion and IV antibiotics. Case was discussed with the hospitalist. Blood consent signed at bedside. I discussed all results with the patient, she verbalized understanding and was in agreement with plan. Patient had initially been given oral Augmentin and she declined IV stating she was a very hard stick. After discussion of her labs as well as the recommendation of heme-onc from Juliane, she was in agreement with plan for placement of IV for transfusion and IV medications. Juliane recommended Zosyn/Flagyl. Impression & Plan Abscess, perianal, AML (acute myeloblastic leukemia), Pancytopenia Discharge Plan Visit Data Chief Complaint: Pilonidal Cyst Stated Complaint: Pilonidal cyst, CANCER PT, ED Provider: Silke Lugo Discharge Problem: Abscess, perianal, AML (acute myeloblastic leukemia), Pancytopenia Patient Disposition: Admitted As Inpatient Discharge Instructions Interventions: ED Discharge Assessment Last Done: 07/09/22 00:14
[2022-07-08] MEDS ORDERED: SODIUM CHLORIDE 0.9% 250 ML IV PRN (22:16)
[2022-07-08] MEDS ORDERED: metroNIDAZOLE 500 MG/100 ML BAG IV STA (22:20)
[2022-07-08] MEDS ORDERED: PIPERACILLIN/TAZOBACTAM 4.5 GM/120 ML BAG IV ONE (22:20)
[2022-07-08] MEDS ORDERED: POLYETHYLENE (MIRALAX) 17 GM PACK PO PRN (23:07)
[2022-07-08] MEDS ORDERED: ONDANSETRON INJ 2 MG/ML 2 ML VIAL IV PRN (23:07)
[2022-07-08] MEDS ORDERED: ACETAMINOPHEN 325 MG TAB PO PRN (23:07)
[2022-07-08] MEDS ORDERED: VANCOMYCIN CONSULT ACTIVE PRN (23:07)
[2022-07-08] MEDS ORDERED: LOPERAMIDE HCL 2 MG CAP PO PRN (23:15)
[2022-07-08 23:17] LABS: Influenza A virus by PCR Negative (Neg); Influenza B virus by PCR Negative (Neg); RSV by PCR Negative (Neg); SARS CoV2 RNA(COVID-19)Cepheid NEGATIVE (Negative)
[2022-07-08] MEDS ORDERED: ONDANSETRON 4 MG OD TAB PO PRN (23:17)
--- NOTE | 2022-07-08 23:25 | History & Physical Report ---
Date of Service July 08, 2022 Assessment & Plan (1) Pilonidal abscess: Plan: 31yo Female with PMH AML and CLL on chemo last treatment 1 week ago, pancytopenia, depression, and subclinical hypothyroidism here for pilonidal abcess. Pilonidal Abscess -present since 07/02, draining since 07/06 -vitals currently stable -received 1 tab augmentin in ED, 4.5g zosyn IV -ED has 1 IV site 22 gauge, we will require at least 2 for blood transfusion and abx -ED contacted patient's oncology team in [place], recommended starting antibiotics and transfusing patient given how quickly she may decline, pending placement at [place] once beds available -CT pelvis: There is left perianal/gluteal subcutaneous infiltration with a punctate focus of subcutaneous gas. Therefore, this could represent a small fistula or developing abscess at this location. Of note, the lack of intravenous contrast results in difficult evaluation for a loculated fluid collection. However, no definite loculated fluid collections identified. -procal 0.99 -Bcx wound culture pending -Started zosyn, vancomycin, flagyl IV -consulted surgery in case of decline -trend cbc, procal Anemia -2/2 to chemo, decreased to 5.8 since last check -ED ordered 2U blood -[place] recommends aiming for Hbg 10 -trend cbc Pancytopenia -2/2 to chemo, currently not neutropenic but may later need neutropenic precautions AML, CML on chemotherapy -last chemotherapy 1 week ago -follows Dr. Haley in [place], currently pending transfer to [place] per ED -continue prophylactic acyclovir, cresemba -continue ponatinib, venclexta -continue memantine for cognitive protection -continue gabapentin 200mg BID and oxycodone 30mg BID for pain control oxycodone 10mg PRN for breakthrough pain -zofran PO PRN for nausea Depression -continue citalopram Subclinical Hypothyroidism -continue levothyroxine (2) AML (acute myeloblastic leukemia): (3) Pancytopenia due to antineoplastic chemotherapy: (4) CML (chronic myelocytic leukemia): (5) Depression: (6) Subclinical hypothyroidism: (7) Generalized pain: History of Present Illness Chief Complaint: Abscess Primary Care Provider: Zurdo Molina, 31yo Female with PMH AML and CLL on chemo last treatment 1 week ago, pancytopenia, depression, and subclinical hypothyroidism here for pilonidal abcess. She states on 07/02 she felt a pimple like 1in bump on her buttocks that was stiff and painful, thought it was a pimple and ignored it. 2 days ago it popped and began draining, she felt increased pain states skin felt hot, hard, noticed a crater after drainage, was very smelly. She packed it with gauze and washed it several times a day. Today she noticed it continued to grow larger so came to the ED. Patient noted new constipation with increased pain, weakness and shakiness every since her pimple developed. She follows with Dr. Haley in [place] for oncology. She no longer has a port on her chest for infusions, does have a port on her head that connects to her CSF. She denies any fever SOB chest pain abd pain nausea vomitting loss of sensation numbness tingling or loss of appetite. States she is a difficult IV placement. Allergies Allergy/AdvReac Type Severity Reaction Status Date / Time No Known Allergies Allergy Verified 07/08/22 22:35 Home Medications Medication Instructions Recorded Confirmed Type acyclovir 400 mg tablet 400 mg PO BID 07/08/22 07/08/22 History citalopram 20 mg tablet 20 mg PO DAILY 07/08/22 07/08/22 History cyclobenzaprine 10 mg tablet 10 mg PO TID 07/08/22 07/08/22 History gabapentin 100 mg capsule 200 mg PO TID 07/08/22 07/08/22 History hydromorphone 2 mg tablet 2 mg PO Q4H PRN Pain 07/08/22 07/08/22 History isavuconazonium sulfate 186 mg 372 mg PO DAILY 07/08/22 07/08/22 History capsule (Cresemba) levothyroxine 50 mcg tablet 50 mcg PO DAILY 07/08/22 07/08/22 History loperamide 2 mg capsule 2 mg PO Q4H PRN Diarrhea 07/08/22 07/08/22 History memantine 5 mg tablet 5 mg PO DIRECTED 07/08/22 07/08/22 History ondansetron HCl 8 mg tablet 8 mg PO TID PRN Nausea 07/08/22 07/08/22 History oxycodone 10 mg tablet 10 mg PO Q4 PRN .Pain 7-10 07/08/22 07/08/22 History oxycodone 30 mg tablet,crush 30 mg PO Q12 07/08/22 07/08/22 History resistant,extended release 12 hr (OxyContin) ponatinib 15 mg tablet (Iclusig) 15 mg PO DAILY 07/08/22 07/08/22 History venetoclax 100 mg tablet 200 mg PO DAILY 07/08/22 07/08/22 History (Venclexta) Past Med/Surg History Medical History AML (acute myeloblastic leukemia) Bone marrow depression CML (chronic myelocytic leukemia) Elevated lactic acid level Elevated troponin Generalized pain History of cancer Lab test negative for COVID-19 virus Neutropenic fever No pertinent past medical history Thrombocytopenia Surgical History History of tonsillectomy Family History Other Adopted Social History Smoking Status: Never smoker Tobacco Type: Cigarettes Second Hand Exposure: No; Hx Alcohol Use: No Hx Substance Use: No Preferred Language: Croatian Communication Ability: Effective Account Manager B2B Required: No Beliefs That Will Affect Care: None marital status: Current Living Situation: Spouse Current Living Situation Comment: lives w/ current occupational status: unemployed Other Information That Helps Us Care for You: No Feels Safe at Home: Yes Safety Concerns: Feels Safe At This Time Childhood Exposure to Second-Hand Smoke: No caffeine: No during the past year weight has: increased > 10 lbs Dental Care, Regularly: No Physical Activity Frequency: Daily Seatbelt Use: always Sunscreen Use: No Assistive Devices: Cane, Walker and Wheelchair Review of Systems Constitutional: as per Subjective / HPI Physical Exam Constitutional: well developed, well nourished, + morbidly obese, cooperative and comfortable Eyes: PERRL, conjunctivae normal, anicteric sclerae ENMT: external ear and nose normal, oropharynx normal mass on right side of head is a port that leads to her CSF. She is bald Neck: trachea midline, no thyromegaly Respiratory: normal respiratory effort, lungs clear to auscultation Cardiovascular: Rate/Rhythm: regular rate and regular rhythm Extremities: no edema Chest (Breasts): Chest: normal inspection of chest Gastrointestinal (Abdomen): Inspection/Auscultation: abdomen normal to inspection Percussion/Palpation: abdomen soft; abdomen nontender Skin: draining foul smelling abcess noted on left side of gluteal crease, circular surrounding erythema with central incision and depression of about 2in, tender to palpation scabs noted on right lateral thigh with dry peeling skin noted, nontender, patient states they are 2/2 radiation therapy and she was enthusiastic about removing dry skin Psychiatric: A+Ox3, euthymic affect Results & Data Results & Data ([facility]) Vital Signs (Past 12 Hours) Vital Signs Temp Pulse Pulse Resp BP BP Pulse Ox 07/08/22 22:26 36.8 C 98 H 16 112/57 L 96 07/08/22 21:00 97 H 20 116/64 97 07/08/22 19:07 84 16 119/73 97 07/08/22 16:48 36.0 C L 124 H 20 132/83 97 O2 Del Method 07/08/22 22:26 Room Air 07/08/22 21:00 Room Air 07/08/22 19:07 Room Air 07/08/22 16:48 Room Air Diagnostic Findings Laboratory Results WBC 2.19 K/ul (4.8-10.8) L 07/08/22 20:23 RBC 1.66 M/uL (3.93-5.22) L 07/08/22 20:23 Hgb 5.8 g/dl (12.0-16.0) L* 07/08/22 20:23 Hct 17.2 % (34.1-44.9) L* 07/08/22 20: MCV 103.6 fL (80.0-100.0) H 07/08/22 20:23 MCH 34.9 pg (25.0-34.0) H 07/08/22 20:23 MCHC 33.7 g/dL (32.0-36.0) 07/08/22 20:23 RDW Std Deviation 66.1 fL (36.4-46.3) H 07/08/22 20: RDW Coeff of Brock 17.5 % (11.5-14.5) H 07/08/22 20: Plt Count 64 K/uL (130-400) L 07/08/22 20: MPV 12.2 fL (9.4-12.3) 07/08/22 20: Immature Gran % (Auto) 0.9 % 07/08/22 20: Neut % (Auto) 79.9 % 07/08/22: Lymph % (Auto) 11.4 % 07/08/22: Divide % (Auto) 7.8 % 07/08/22: Eos % (Auto) 0.0 % 07/08/22: Baso % (Auto) 0.0 % 07/08/22: Neut # (Auto) 1.75 K/uL (1.4-6.5) 07/08/22: Lymph # (Auto) 0.25 K/uL (1.2-3.4) L 07/08/22: Divide # (Auto) 0.17 K/uL (0.24-0.82) L 07/08/22 20: Eos # (Auto) 0.00 K/uL (0-0.50) 07/08/22: Baso # (Auto) 0.00 K/uL (0-0.2) 07/08/22: Immature Gran # (Auto) 0.02 K/uL (0.00-0.02) 07/08/22: Absolute Nucleated RBC 0.02 K/uL (0-0) H 07/08/22: Nucleated RBC % (auto) 0.9 % 07/08/22 20: Polychromasia 1+ 07/08/22 20: Hypochromasia Present 07/08/22 20: Sodium 140 mmol/L (136-145) 07/08/22: Potassium 3.9 mmol/L (3.5-5.1) 07/08/22 20: Chloride 106 mmol/L (98-107) 07/08/22 20: Carbon Dioxide 27 mmol/L (21-32) 07/08/22: Anion Gap 7 (3-11) 07/08/22: BUN 13 mg/dl (6-23) 07/08/22 20: Creatinine 0.69 mg/dl (0.6-1.2) 07/08/22 20: Est Cr Clr Drug Dosing Not Reportable 07/08/22 20: Est GFR ( Amer) 135.4 ml/min 07/08/22 20: Est GFR (Non-Af Amer) 116.8 ml/min 07/08/22 20: BUN/Creatinine Ratio 18.8 (10-20) 07/08/22 20: Glucose 101 mg/dl (70-99(Fasting)) H 07/08/22 20: Calcium 9.2 mg/dl (8.5-10.1) 07/08/22: Total Bilirubin 0.8 mg/dl (0.2-1.0) 07/08/22 20: AST 20 U/L (13-39) 07/08/22 20: ALT 43 U/L (7-52) 07/08/22 20: Alkaline Phosphatase 66 U/L (34-104) 07/08/22 20: Total Protein 6.3 gm/dl (6.0-8.3) 07/08/22 20: Albumin 3.2 gm/dl (3.4-5.0) L 07/08/22 20: Globulin 3.1 gm/dl (2.5-4.0) 07/08/22 20: Albumin/Globulin Ratio 1.0 (0.9-2) 07/08/22 20: Procalcitonin 0.99 ng/ml (0-0.5) H 07/08/22 20:23 SARS-CoV-2 (PCR) NEGATIVE (Negative) 07/08/22 22:08 Influenza Type A (PCR) Negative (Neg) 07/08/22 22:08 Influenza Type B (PCR) Negative (Neg) 07/08/22 22:08 RSV (RT-PCR) Negative (Neg) 07/08/22 22:08 Crossmatch See Detail 07/08/22 22:[address] 07/08/22 19:31 CT pelvis wo con HISTORY: abscess left medial buttock TECHNIQUE: Multiaxial CT images of the pelvis were performed without contrast. Sagittal and coronal reformations were performed at the workstation by the radiologist. COMPARISON STUDY: Abdomen and pelvis CT 04/04/2022. FINDINGS: There is left perianal/gluteal subcutaneous infiltration with a punctate focus of subcutaneous gas. Therefore, this could represent a small fistula or developing abscess at this location. Of note, the lack of intravenous contrast results in difficult evaluation for a loculated fluid collection. However, no definite loculated fluid collections identified. The bladder, uterus, and adnexa are within normal limits. No pelvic free fluid. The visualized loops of bowel show no wall thickening or obstruction. Normal appendix. No pelvic or inguinal lymphadenopathy. No suspicious lytic or blastic osseous lesions. IMPRESSION: There is left perianal/gluteal subcutaneous infiltration with a punctate focus of subcutaneous gas. Therefore, this could represent a small fistula or developing abscess at this location. Of note, the lack of intravenous contrast results in difficult evaluation for a loculated fluid collection. However, no definite loculated fluid collections identified. ACT 112: Negative or not required by law. Electronically signed by: Elías Damon M.D. 07/08/2022 8:50 PM Medications Administered Current Inpatient Medications Acetaminophen (Acetaminophen 325 Mg Tab) 650 mg PO Q4H PRN PRN Reason: Pain or Fever Stop: 08/07/22 23:06 Acyclovir (Acyclovir 400 Mg Tab) 400 mg PO BID ELANA Stop: 08/08/22 08:59 Citalopram Hydrobromide (Citalopram 20 Mg Tab) 20 mg PO DAILY ELANA Stop: 08/08/22 08:59 Gabapentin (Gabapentin 100 Mg Cap) 200 mg PO TID ELANA Stop: 08/08/22 08:59 Sodium Chloride (Nss) 250 mls @ 15 mls/hr IV .[id number] PRN PRN Reason: For Transfusion Duration Stop: 07/09/22 08:19 Vancomycin HCl 2,250 mg/ (Sodium Chloride) 545 mls @ 200 mls/hr IV 2330 ONE Stop: 07/09/22 02:13 Vancomycin HCl 1,750 mg/ (Sodium Chloride) 535 mls @ 200 mls/hr IV UD ELANA Stop: 07/16/22 23:14 Piperacillin Sod/Tazobactam (Sod 4.5 gm/ Dextrose) 120 mls @ 30 mls/hr IV Q8H ELANA; Protocol Stop: 07/15/22 23:14 Metronidazole (Flagyl) 500 mg in 100 mls @ 100 mls/hr IV Q8H ELANA Stop: 07/15/22 23:14 Levothyroxine Sodium (Levothyroxine Sodium 50 Mcg Tablet) 50 mcg PO DAILY [facility] Stop: 08/08/22 08:59 Loperamide HCl (Loperamide Hcl 2 Mg Cap) 2 mg PO Q4H PRN PRN Reason: Diarrhea Stop: 08/07/22 23:14 Memantine (Memantine Hcl 5 Mg Tab) 5 mg PO DIRECTED [facility] Stop: 08/07/22 23:14 Miscellaneous Information (Vancomycin Consult Active) 1 each N/A UD PRN PRN Reason: Consult Stop: 08/07/22 23:06 Non-Formulary Medication (Isavuconazonium Sulfate [Cresemba]) 372 mg PO DAILY [facility] Stop: 08/08/22 08:59 Non-Formulary Medication (Ponatinib [Iclusig]) 15 mg PO DAILY [facility] Stop: 08/08/22 08:59 Non-Formulary Medication (Venetoclax [Venclexta]) 200 mg PO DAILY [facility] Stop: 08/08/22 08:59 Ondansetron HCl (Ondansetron 4 Mg Od Tab) 4 mg PO Q6H PRN PRN Reason: Nausea Stop: 08/07/22 23:16 Oxycodone HCl (Oxycodone Hcl Ir 5 Mg Tab (Immediate Release)) 10 mg PO Q4 PRN PRN Reason: .Pain 7-10 Stop: 07/22/22 23:14 Oxycodone HCl (Oxycodone Hcl 15 Mg Tabcr (Oxycontin)) 30 mg PO Q12 [facility] Stop: 07/23/22 08:59 Polyethylene Glycol (Polyethylene (Miralax) 17 Gm Pack) 17 gm PO DAILY PRN PRN Reason: Constipation Stop: 08/07/22 23:06 Supervising Physician Co-Signing Physician Notes Attending addendum: I have physically seen this patient, have supervised the medical residents activities, and agree with the H&P unless as otherwise noted. Assessment and Plan: Pilonidal abscess- Initially noted by patient on 07/02, with drainage beginning on 07/06. Status post 4 g Zosyn IV in ED CT pelvis shows left perianal/gluteal subcutaneous infiltration with a punctate focus of subcutaneous gas concerning for possible fistula or developing abscess Patient is immunocompromised on the basis of AML and undergoing chemotherapy Placed on vancomycin IV, Zosyn IV and Flagyl IV Consult general surgery Follow wound cultures and blood cultures Her physicians at [facility] were contacted, and recommended patient be admitted at [facility] for IV antibiotics and transfusions Anemia/AML- Hemoglobin 5.8 upon admission Transfuse 2 units PRBCs Recheck H&H after transfusion AML/CML on chemotherapy- Following with [facility] Continue her usual supportive medications as noted Remaining orders and notations as noted Resident Activity Tracking Resident Involvement: Resident Care Provided Care Provided: Adult Hospital Medicine (1) Depression Depression Type: reactive depression Qualified Code(s): F32.9 - Major depressive disorder, single episode, unspecified
[2022-07-08] MEDS ORDERED: VANCOMYCIN HCL 2,250 MG in SODIUM CHLORIDE 0.9% 500 ML IV ONE (23:30)
[2022-07-09] MEDS ORDERED: SODIUM CHLORIDE 0.9% 250 ML IV PRN ×4 (00:06→10:51)
[2022-07-09] MEDS: oxyCODONE HCL IR 5 MG TAB (IMMEDIATE RELEASE) PO PRN ×2 (01:57→07:33)
[2022-07-09] MEDS: metroNIDAZOLE 500 MG/100 ML BAG IV SCH ×3 (02:56→19:05)
[2022-07-09] MEDS ORDERED: HYDROmorphone INJ 0.5 MG/0.5 ML SYR IV STA (03:30)
[2022-07-09] MEDS: PIPERACILLIN/TAZOBACTAM 4.5 GM in DEXTROSE 5% 100 ML IV SCH ×3 (03:54→19:38)
--- NOTE | 2022-07-09 03:59 | Pharmacy Report ---
Pharmacy PK ABX Note - Date of Service July 09, 2022 - Assessment and Plan Assessment 31 year old F receiving VANCOMYCIN/ZOSYN/FLAGYL for treatment of L buttock bed sore. Pertinent microbiologic data includes: blood culture x 2 pending, L buttock culture pending. Plan Vancomycin * Loading dose: 2250 mg IV x 1 * Maintenance dose: 1500 mg IV every 12 hours * Regimen is predicted to achieve target AUC/ELIZ of 400-600 mg/L.hr Pharmacy will continue to follow and will adjust dose/frequency as necessary. Thank you. Pharmacy has transitioned to AUC monitoring for vancomycin. AUC/ELIZ is the preferred PK/PD target and is associated with decreased risk of nephrotoxicity compared to traditional trough targets.
--- NOTE | 2022-07-09 05:16 | Surgery Consultation ---
Date of Consultation July 09, 2022 Assessment & Plan (1) Rectal abscess: The patient has been admitted on the hospitalist service. Due to the patient's underlying acute myelogenous leukemia transfer to [facility] has been requested. At the present time no beds are available but she is awaiting transport. While the patient is about 90 we recommend proceeding as follows: Continue broad-spectrum antibiotics in the form of Flagyl, vancomycin, and Zosyn The primary service is planning on transfusing the patient due to her noted anemia The patient CT scan will be reviewed by Dr. Ricci he will determine if any further incision and drainage is required At the present time the patient is afebrile and hemodynamically stable Supervising Physician Co-Signing Physician Notes I personally saw and evaluated the patient with Kevin Rose PA-C and agree with the assessment and plan. 31-year-old female with pancytopenia and left-sided gluteal cellulitis versus abscess CT images and results personally viewed by me, she does have some induration and cellulitis of the left gluteal fold/perirectal region without definite fluid collection On physical exam she does have a decent amount of induration without any fluctuance With her pancytopenia, would just continue to treat her with IV antibiotics and see if she improves as she would need her blood count corrected prior to any consideration of surgical intervention Surgery will sign off at this time, please call with any questions or concerns History of Present Illness Reason for Consultation: Rectal pain Attending Physician: Patrick Tubbs MD History of Present Illness This is a 31-year-old female who presented to [facility] secondary to rectal pain. The patient notes that she has a history of AML and she takes a daily chemotherapy medication. In addition the patient has received intravenous chemotherapy on June 29 of this year. She notes that her next chemotherapy session is due towards the end of June. She receives her oncologic care at [facility]. The patient presents to the emergency department as noted above secondary to rectal pain. She notes that she has had worsening pain on her rectum on the left side of her anus for approximately 1 week. She notes that she has subsequently noted some foul-smelling purulent drainage draining from this area. She denies any fevers, shakes, or chills. She denies any nausea or vomiting. Patient says that she was recently at [facility] and she did note that she had what she thought was a pimple in this area but was not giving her problems and has subsequent become worse. Since arrival to [facility] the patient has had labs and imaging that I independent reviewed. The patient was noted to have some gluteal/perianal subcutaneous infiltration with a punctate focus of subcutaneous gas in the left gluteal region. A small fistula or developing abscess could not be excluded. Labs include a CBC her white blood cell count was 2.1. The patient's neutrophil count was 1.75. Hemoglobin and hematocrit were 5.8 and 17.2. Platelet count was 64,000. Chemistry profile showed sodium, potassium, BUN, and creatinine were all within the normal range. Patient did have tests for COVID, influenza, and RSV all of which were negative. Since arrival to the hospital the patient has received broad-spectrum antibiotics in the form of vancomycin, Zosyn, and Flagyl. In addition the patient is receiving oral acyclovir. At the time of my interview she was resting comfortably in bed in no distress. Allergies Allergy/AdvReac Type Severity Reaction Status Date / Time No Known Allergies Allergy Verified 07/08/22 22:35 Home Medications Medication Instructions Recorded Confirmed Type acyclovir 400 mg tablet 400 mg PO BID 07/08/22 07/08/22 History citalopram 20 mg tablet 20 mg PO DAILY 07/08/22 07/08/22 History cyclobenzaprine 10 mg tablet 10 mg PO TID 07/08/22 07/08/22 History gabapentin 100 mg capsule 200 mg PO TID 07/08/22 07/08/22 History hydromorphone 2 mg tablet 2 mg PO Q4H PRN Pain 07/08/22 07/08/22 History isavuconazonium sulfate 186 mg 372 mg PO DAILY 07/08/22 07/08/22 History capsule (Cresemba) levothyroxine 50 mcg tablet 50 mcg PO DAILY 07/08/22 07/08/22 History loperamide 2 mg capsule 2 mg PO Q4H PRN Diarrhea 07/08/22 07/08/22 History memantine 5 mg tablet 5 mg PO DIRECTED 07/08/22 07/08/22 History ondansetron HCl 8 mg tablet 8 mg PO TID PRN Nausea 07/08/22 07/08/22 History oxycodone 10 mg tablet 10 mg PO Q4 PRN .Pain 7-10 07/08/22 07/08/22 History oxycodone 30 mg tablet,crush 30 mg PO Q12 07/08/22 07/08/22 History resistant,extended release 12 hr (OxyContin) ponatinib 15 mg tablet (Iclusig) 15 mg PO DAILY 07/08/22 07/08/22 History venetoclax 100 mg tablet 200 mg PO DAILY 07/08/22 07/08/22 History (Venclexta) Patient History Medical History AML (acute myeloblastic leukemia) Bone marrow depression CML (chronic myelocytic leukemia) Elevated lactic acid level Elevated troponin Generalized pain History of cancer Lab test negative for COVID-19 virus Neutropenic fever No pertinent past medical history Thrombocytopenia Surgical History History of tonsillectomy Family History Other Adopted Social History Smoking Status: Never smoker Tobacco Type: Cigarettes Second Hand Exposure: No; Hx Alcohol Use: No Hx Substance Use: No Preferred Language: Martiniquais Communication Ability: Effective Land Acquisition Manager Required: No Beliefs That Will Affect Care: None marital status: Current Living Situation: Spouse Current Living Situation Comment: lives w/ current occupational status: unemployed Other Information That Helps Us Care for You: No Feels Safe at Home: Yes Safety Concerns: Feels Safe At This Time Childhood Exposure to Second-Hand Smoke: No caffeine: No during the past year weight has: increased > 10 lbs Dental Care, Regularly: No Physical Activity Frequency: Daily Seatbelt Use: always Sunscreen Use: No Assistive Devices: Cane, Walker and Wheelchair Review of Systems Constitutional: no fever and no chills Eyes: no eye pain Ear, Nose, Mouth, Throat: no ear pain Respiratory: no cough and no dyspnea Cardiovascular: no chest pain Gastrointestinal: as per Subjective / HPI Genitourinary: no dysuria Musculoskeletal: no back pain Integumentary: no rash Neurologic: no localized weakness Physical Exam Physical Exam: With the nurse anesthesiology faculty present I examined the patient's rectum. The patient did have an area of induration along the left gluteal fold. This area was painful to palpation. There is a small amount of purulent drainage draining from this. I cannot palpate any crepitus in the soft tissue. Along the right gluteal fold there is no areas of induration, drainage, or pain. Constitutional: no acute distress Eyes: no conjunctival abnormality ENMT: Ears: no hearing impairment and no external ear abnormality Neck: trachea midline Respiratory: normal respiratory effort; no respiratory distress and no labored breathing Cardiovascular: Rate/Rhythm: regular rate and regular rhythm Gastrointestinal (Abdomen): Abdomen is soft, nonrigid, nondistended, nontender to palpation Musculoskeletal: No calf tenderness Skin: no rashes Neurologic: moves all extremities Psychiatric: A+Ox3, euthymic affect Results & Data ([facility]) Vital Signs (Past 12 Hours) Vital Signs Temp Pulse Pulse Resp BP BP Pulse Ox 07/09/22 04:42 36.9 C 88 18 113/70 95 07/09/22 04:23 37.0 C 90 18 108/71 96 07/09/22 01:10 105 H 07/09/22 03:39 36.6 C 96 H 18 95/68 L 98 07/09/22 02:39 36.6 C 96 H 18 125/80 97 07/09/22 02:09 36.7 C 98 H 18 117/79 99 07/09/22 01:54 36.9 C 96 H 18 120/78 96 07/09/22 01:38 36.8 C 98 H 18 121/76 96 07/09/22 00:53 36.4 C L 101 H 18 188/74 H 95 07/09/22 00:00 37.2 C 94 H 18 102/58 L 98 07/08/22 22:26 36.8 C 98 H 16 112/57 L 96 07/08/22 21:00 97 H 20 116/64 97 07/08/22 19:07 84 16 119/73 97 O2 Del Method 07/09/22 04:42 07/09/22 04:23 07/09/22 01:10 07/09/22 03:39 07/09/22 02:39 07/09/22 02:09 07/09/22 01:54 07/09/22 01:38 07/09/22 00:53 Room Air 07/09/22 00:00 Room Air 07/08/22 22:26 Room Air 07/08/22 21:00 Room Air 07/08/22 19:07 Room Air PG Care Time/CCT Total # of Minutes Spent Total Time Spent with Patient: Total time spent is greater than 50% in coordination of care (as documented) at patient's floor/unit and/or counseling patient: Coding Level of Care Code 83029 Inpt Consult Level 5 Diagnoses Rectal abscess K61.1
[2022-07-09] MEDS: LEVOTHYROXINE SODIUM 50 MCG TABLET PO SCH (05:49)
[2022-07-09 10:19] LABS: Hematocrit (blood only) 21.9 % (34.1-44.9); Hemoglobin 7.6 g/dl (12.0-16.0); Mean Corpuscular Hemoglobin 32.6 pg (25.0-34.0); Mean Corpuscular Hgb Conc 34.7 g/dL (32.0-36.0); Mean Platelet Volume 10.3 fL (9.4-12.3); Nucleated RBC # (auto) 0.02 K/uL (0-0); Nucleated RBC % (auto) 1.2 %; Platelet Count 51 K/uL (130-400); RDW Coefficient of Variation 18.6 % (11.5-14.5); RDW Standard Deviation 61.9 fL (36.4-46.3); Red Blood Count 2.33 M/uL (3.93-5.22)
[2022-07-09] MEDS: ACYCLOVIR 400 MG TAB PO SCH ×2 (10:25→22:47)
[2022-07-09] MEDS: GABAPENTIN 100 MG CAP PO SCH ×3 (10:25→22:47)
[2022-07-09] MEDS: CITALOPRAM 20 MG TAB PO SCH (10:25)
[2022-07-09] MEDS: oxyCODONE HCL 15 MG TABCR (OxyCONTIN) PO SCH ×2 (10:25→22:47)
[2022-07-09] MEDS: VANCOMYCIN HCL 1,500 MG in SODIUM CHLORIDE 0.9% 500 ML IV SCH ×2 (10:26→22:46)
[2022-07-09 10:28] LABS: Albumin Level 2.9 gm/dl (3.4-5.0); BUN Creatinine Ratio 14.8 (10-20); Calcium 8.7 mg/dl (8.5-10.1); Creatinine Clr Calc Pharmacy 165.1 ml/min; Est GFR (Non-African American) 121.7 ml/min; Globulin 2.8 gm/dl (2.5-4.0); Potassium 3.8 mmol/L (3.5-5.1); Total Protein 5.7 gm/dl (6.0-8.3)
[2022-07-09 11:11] LABS: Eosinophils # (auto) 0.01 K/uL (0-0.50); Eosinophils % (auto) 0.6 %; Immature Granulocytes # (auto) 0.02 K/uL (0.00-0.02); Immature Granulocytes % (auto) 1.2 %; Lymphocytes # (auto) 0.16 K/uL (1.2-3.4); Lymphocytes % (auto) 9.4 %; Monocytes # (auto) 0.17 K/uL (0.24-0.82); Neutrophils # (auto) 1.34 K/uL (1.4-6.5); Neutrophils % (auto) 78.8 %
[2022-07-09 11:12] LABS: Polychromasia 1+
--- NOTE | 2022-07-09 12:21 | Medical Student Progress Note ---
Date of Service July 09, 2022 Assessment & Plan (1) Pilonidal abscess: (2) AML (acute myeloblastic leukemia): (3) Anemia: (4) Pancytopenia due to antineoplastic chemotherapy: (5) CML (chronic myelocytic leukemia): Plan Pilonodal Cyst - CBC: demonstrated pancytopenia and borderline neutropenia (put on neutropenic precautions). - CT scan demonstrating left perianal/gluteal subcutaneous infiltrate suggesting an abscess - Given one tablet of Augmentin then transitioned to Zosyn, Vancomycin, and Flagyl - Wound culture: pending - General surgery consulted and will monitor to see if the abscess necessitates further drainage. No required procedures now. - [place] [facility] following and [place] transportation[place] [facility] [place]emia - Hb of 5.8 and was given 2 units of blood thus far and will be given 2 more units. Acute Myeloid Leukemia - Chemotherapy: ponatinib and Venclexta (aw[place] [facility] [place] - Prophylactics: acyclovir and Cresemba - Cognitive protection: memantine - Pain: Gabapentin and oxycodone - Nausea: Zofran Admission and Anticipated Discharge Date Admission Date: July 08, 2022 Supervising Attestation I personally examined the patient and verified all maldonado points of history and exam, discussed case, and agree with decision making with Mickey LAMBERT Feeling reasonably okay. Awaiting transfer to [place]. No new complaints. Vitals noted, in general she is awake and alert pleasant no distress. HEENT normocephalic atraumatic mucous membranes moist. Breathing unlabored no accessory muscle use good effort. Skin shows no rashes no pallor or icterus. Neuro without focal deficits. Pilonidal cyst/possible abscess/buttocks cellulitiswith sepsis present on admissionoverall stable, fortunately no severe sepsis/septic shockgiven her near lack of immune system because of her cytotoxic/myelosuppressive chemotherapy continue broad antibiotic coverage. Appreciate surgical oversightno drainage necessary at this time. Awaiting transfer to [place]. Chemotherapy induced pancytopeniaas part of her regimen for her AML, anemia requiring 4 units transfusion Otherwise as above Subjective Kirstin Arias is a 31 year old female with a pertinent past medical history of AML, CML, and recent chemotherapy (1x week ago) presented to the ED yesterday for a continually draining pilonidal abscess. She stated that she first noticed a mass on her left gluteal crease about 5 days ago that she described as a "pimple." A few days later she notes that her examined the area noting that it grew calling it a "boil". A few days afterward, while she was being transported in her wheel chair by her sister, the mass burst, but she was not aware of this fact until later in the evening when her inspected it. The wound was noted to have a brown scab coloration, that upon cleaning, began draining a brown, thick, malodorous discharge. They proceeded to clean and dress (with gauze) the wound every several hours. Since the drainage was unremitting, she presented in the ED for further evaluation and was admitted. Today, she states that her pain is a 6/10 comparative to the 20/10 pain prior to the inital drainage of the abscess. She denies constitutional symptoms (fever, fatigue, myalgias), nausea, vomiting, diarrhea, SOB, or chest pain. Physical Exam Constitutional: WD/WN, vitals as above Eyes: + anicteric sclerae and + abnormal pupil size Neck: normal visual inspection and trachea midline Respiratory: normal respiratory effort, lungs clear to auscultation Cardiovascular: RRR, no murmur, no edema Musculoskeletal: Head/Neck/Chest: normocephalic and head atraumatic Skin: No erythema surrounding the left superior gluteal crease wound. Neurologic: awake Psychiatric: Orientation: alert, oriented to person, oriented to place and or iented to time Results & Data ([facility]) Vital Signs (Past 12 Hours) Vital Signs Temp Pulse Pulse Resp BP BP Pulse Ox 07/09/22 11:54 37.2 C 83 20 108/74 98 07/09/22 11:11 36.8 C 80 17 98/64 L 96 07/09/22 08:00 85 07/09/22 08:04 36.7 C 84 15 117/75 97 07/09/22 07:16 36.7 C 84 15 117/75 97 07/09/22 06:16 36.7 C 85 18 118/76 98 07/09/22 05:46 37.0 C 87 18 115/74 99 07/09/22 05:31 36.7 C 93 H 18 118/75 97 07/09/22 05:31 36.7 C 90 18 118/75 96 07/09/22 04:52 36.3 C L 86 16 109/71 96 07/09/22 05:15 36.3 C L 87 16 109/71 96 07/09/22 04:42 36.3 C L 88 18 109/71 95 07/09/22 04:42 36.9 C 88 18 113/70 95 07/09/22 04:23 37.0 C 90 18 108/71 96 07/09/22 01:10 105 H 07/09/22 03:39 36.6 C 96 H 18 95/68 L 98 07/09/22 02:39 36.6 C 96 H 18 125/80 97 07/09/22 02:09 36.7 C 98 H 18 117/79 99 07/09/22 01:54 36.9 C 96 H 18 120/78 96 07/09/22 01:38 36.8 C 98 H 18 121/76 96 07/09/22 00:53 36.4 C L 101 H 18 188/74 H 95 O2 Del Method 07/09/22 11:54 07/09/22 11:11 Room Air 07/09/22 08:00 07/09/22 08:04 07/09/22 07:16 07/09/22 06:16 07/09/22 05:46 07/09/22 05:31 07/09/22 05:31 07/09/22 04:52 07/09/22 05:15 07/09/22 04:42 07/09/22 04:42 07/09/22 04:23 07/09/22 01:10 07/09/22 03:39 07/09/22 02:39 07/09/22 02:09 07/09/22 01:54 07/09/22 01:38 07/09/22 00:53 Room Air
--- NOTE | 2022-07-09 18:17 | Billing Data ---
Date of Service July 09, 2022 Coding Level of Care Code 02584 Subseq Hosp Care Lvl 3
--- NOTE | 2022-07-09 20:57 | Billing Data ---
Date of Service July 09, 2022 Coding Level of Care Code 20631 Initial Inpt Care Lvl 3
[2022-07-09] MEDS ORDERED: MEMANTINE HCL 5 MG TAB PO SCH (21:00)
[2022-07-09] MEDS: MEMANTINE HCL 5 MG TAB PO SCH (22:47)
[2022-07-09] MEDS ORDERED: VENETOCLAX PO SCH ×2 (23:00)
[2022-07-10] MEDS: metroNIDAZOLE 500 MG/100 ML BAG IV SCH ×3 (01:40→17:53)
[2022-07-10] MEDS: PIPERACILLIN/TAZOBACTAM 4.5 GM in DEXTROSE 5% 100 ML IV SCH ×2 (03:53→13:55)
[2022-07-10] MEDS: LEVOTHYROXINE SODIUM 50 MCG TABLET PO SCH (05:37)
[2022-07-10 06:43] LABS: Hemoglobin 10.5 g/dl (12.0-16.0); Mean Corpuscular Hemoglobin 31.3 pg (25.0-34.0); Mean Corpuscular Volume 89.6 fL (80.0-100.0); Mean Platelet Volume 10.8 fL (9.4-12.3); Nucleated RBC # (auto) 0.07 K/uL (0-0); Platelet Count 55 K/uL (130-400); RDW Coefficient of Variation 20.1 % (11.5-14.5); RDW Standard Deviation 62.4 fL (36.4-46.3); Red Blood Count 3.35 M/uL (3.93-5.22); White Blood Count 2.37 K/ul (4.8-10.8)
[2022-07-10 06:59] LABS: BUN Creatinine Ratio 12.3 (10-20); Calcium 9.2 mg/dl (8.5-10.1); Creatinine Clr Calc Pharmacy 135.3 ml/min; Est GFR (African American) 128.1 ml/min; Est GFR (Non-African American) 110.5 ml/min; Potassium 3.9 mmol/L (3.5-5.1)
[2022-07-10 07:14] LABS: Anisocytosis Present; Immature Granulocytes # (auto) 0.02 K/uL (0.00-0.02); Immature Granulocytes % (auto) 0.8 %; Lymphocytes # (auto) 0.24 K/uL (1.2-3.4); Lymphocytes % (auto) 10.1 %; Monocytes # (auto) 0.22 K/uL (0.24-0.82); Monocytes % (auto) 9.3 %; Neutrophils # (auto) 1.89 K/uL (1.4-6.5); Neutrophils % (auto) 79.8 %; Polychromasia 1+
[2022-07-10] MEDS: CITALOPRAM 20 MG TAB PO SCH (08:29)
[2022-07-10] MEDS: oxyCODONE HCL 15 MG TABCR (OxyCONTIN) PO SCH (08:29)
[2022-07-10] MEDS: GABAPENTIN 100 MG CAP PO SCH ×2 (08:29→13:55)
[2022-07-10] MEDS: ACYCLOVIR 400 MG TAB PO SCH (08:30)
[2022-07-10] MEDS ORDERED: SODIUM CHLOR 0.45% + 20MEQ KCL 20 MEQ/1,000 ML BAG IV SCH (10:45)
[2022-07-10] MEDS: VANCOMYCIN HCL 1,500 MG in SODIUM CHLORIDE 0.9% 500 ML IV SCH (10:50)
[2022-07-10] MEDS: MEMANTINE HCL 5 MG TAB PO SCH (10:52)
[2022-07-10] MEDS ORDERED: ISAVUCONAZONIUM SULFATE 186 MG PO SCH (11:00)
[2022-07-10] MEDS ORDERED: PONATINIB PO SCH ×2 (11:00)
--- NOTE | 2022-07-10 16:35 | Discharge Summary ---
Date of Service July 10, 2022 Admission HPI Per Admitting Provider 31yo Female with PMH AML and CLL on chemo last treatment 1 week ago, pancytopenia, depression, and subclinical hypothyroidism here for pilonidal abcess. She states on 07/02 she felt a pimple like 1in bump on her buttocks that was stiff and painful, thought it was a pimple and ignored it. 2 days ago it popped and began draining, she felt increased pain states skin felt hot, hard, noticed a crater after drainage, was very smelly. She packed it with gauze and washed it several times a day. Today she noticed it continued to grow larger so came to the ED. Patient noted new constipation with increased pain, weakness and shakiness every since her pimple developed. She follows with Dr. Haley in [place] for oncology. She no longer has a port on her chest for infusions, does have a port on her head that connects to her CSF. She denies any fever SOB chest pain abd pain nausea vomitting loss of sensation numbness tingling or loss of appetite. States she is a difficult IV placement. Principal Diagnosis Sepsis in the context of a buttocks cellulitis, possible pilonidal cyst abscess, in severely immunocompromised patient due to AML/chemotherapy Discharge Exam In general she is awake and alert pleasant no distress. HEENT normocephalic atraumatic mucous membranes moist. Breathing unlabored no accessory muscle use good effort. Skin shows mid buttock a small punctate area with a little bit of brownish drainage in the middle none can really be expressed, there is no clear fluctuance although the skin does feel thickened and induratedbut it has more of a dull maroon erythema rather than a bright hot redit is tender but she notes it is less tender than before. Neuro without focal deficits. Discharge Data Allergies Allergy/AdvReac Type Severity Reaction Status Date / Time No Known Allergies Allergy Verified 07/08/22 22:35 Consultations 07/08/22 22:35 ED Decision to Admit Stat 07/08/22 23:45 Consult General Surgery Routine 07/10/22 14:22 Burn CD for patient Stat Ordered Studies 07/08/22 19:31 CT pelvis wo con Stat Hospital Course (1) Pilonidal abscess: Picture most consistent with open pilonidal cyst and surrounding cellulitis, serial exams/possibly serial imaging to rule out any sort of abscess that will need to be drainedat this point in time it does not appear to be the case. Is on broad antibiotics in the form of vancomycin, Zosyn, metronidazoledue to needing to cover for skin and soft tissue, but also in an area that would be heavily contaminated with fecal florain the context of severe immune compromise and very little reserve to fight off infection on her own. Fortunately though, she has shown good improvement over the last day. Stable for transfer. Had pancytopeniachemotherapy relatedleukopenia has improved, anemia required 4 units transfusion to improve, thrombocytopenia coming up Total Time Total Time Spent Total Time Spent (In Minutes): <30 Discharge Plan Discharge Items Patient Disposition: Transfer Acute Care Hospital Reason For Visit: ABSCESS Discharge Diagnosis: Sepsis related to cellulitis in immunocompromised patient related to chemotherapy/AML Activity: Per Instructions section Non-emergency contact: Primary Care Provider and Oncologist Call non-emergency contact if: you have any medication questions and your symptoms worsen Follow-up/Referrals: Zurdo Molina, [Primary Care Provider] - Diet: Regular Addtl Attending Provider Instructions: Currently on vancomycin, Zosyn, metronidazole. Med list below will reflect her home medications, acutely she is also on vancomycin currently at 1500 mg every 12 hours, Zosyn 4.5 g every 8 hours, metronidazole 500 mg every 8 hours, half- normal saline with 20 mEq of K at 80 mL an hour (this was initiated for mild hypernatremia that was deemed due to free water loss exceeding intake) Pending Studies at Discharge: Yes Stand-Alone Forms: My [facility] Skilled Items Patient informed of condition?: Yes DNR: No Discharge Level of Care: Other Communicable Disease: No Discharge Prognosis: Stable Lines: Peripheral IV Urinary Catheter: No Medications and DC Order Prescriptions: Continued cyclobenzaprine 10 mg Tablet 10 mg PO TID loperamide 2 mg Capsule 2 mg PO Q4H PRN (Reason: Diarrhea) ondansetron HCl 8 mg Tablet 8 mg PO TID PRN (Reason: Nausea) acyclovir 400 mg Tablet 400 mg PO BID hydromorphone 2 mg Tablet 2 mg PO Q4H PRN (Reason: Pain) citalopram 20 mg tablet 20 mg PO DAILY levothyroxine 50 mcg Tablet 50 mcg PO DAILY gabapentin 100 mg capsule 200 mg PO TID memantine 5 mg tablet 5 mg PO DIRECTED Rx Instructions: [facility] oxycodone 10 mg tablet 10 mg PO Q4 PRN (Reason: .Pain 7-10) Iclusig 15 mg tablet 15 mg PO DAILY oxycodone [OxyContin] 30 mg tablet,oral only,ext.rel.12 hr 30 mg PO Q12 Cresemba 186 mg capsule 372 mg PO DAILY Venclexta 100 mg tablet 200 mg PO DAILY Discharge Orders: Discharge Order (Routine); Ordered 07/10/22 Ordered By: Doe Steve Admission Data Admit Date/Time: 07/08/22 23:55 Attending Provider: Doe Steve Admit Provider: Roula Drake Primary Care Provider: Zurdo Molina Other Providers: Patrick Tubbs ; Ulices Ricci Coding Level of Care Code D/C DAY MANAGEMENT <30 MINS Diagnoses Pilonidal abscess L05.01
--- NOTE | 2022-07-10 16:42 | Pharmacy Report ---
Pharmacy PK ABX Note - Date of Service July 10, 2022 - Assessment and Plan Assessment 31 year old F receiving VANCOMYCIN/ZOSYN/FLAGYL for treatment of L buttock bed sore. Pertinent microbiologic data includes: blood culture x 2 pending, L buttock culture pending. Random level obtained today @ 1508, previous dose infused starting at 1050. This is close to peak, but is still predicting a supratherapeutic AUC/ELIZ. Will decrease dose. Blood cultures negative, L buttock culture with moderate mixed wyatt. [place] [facility] [place] Plan Vancomycin * Loading dose: 2250 mg IV x 1 (given @2341 on 07/08) * Decrease dose: 1000 mg IV every 12 hours * Regimen is predicted to achieve target AUC/ELIZ of 400-600 mg/L.hr Pharmacy will continue to follow and will adjust dose/frequency as necessary. Thank you. Pharmacy has transitioned to AUC monitoring for vancomycin. AUC/ELIZ is the preferred PK/PD target and is associated with decreased risk of nephrotoxicity compared to traditional trough targets.
[2022-07-11] MEDS ORDERED: VANCOMYCIN HCL 1,000 MG in SODIUM CHLORIDE 0.9% 250 ML IV SCH (04:00)
== END 2022-07-10 20:15 | disposition short-term general hospital (02) | DRG 871 ==
LOC: ED 15:54 → 2S 23:55 → SUATTDRO 23:55 → 2S 07-09 00:14